=== PATIENT | male | born 1970 | race Asian ===

== ENCOUNTER 2019-03-29 23:19 | Inpatient (IN) | payer MEDICAID ==
[~2019-03-29] VITALS: Ht 172.7 cm; Wt 72.6 kg
[2019-03-29] MEDS ORDERED: Morphine Sulfate 4mg/ml Inj (IV USE ONLY) IVP ONE (23:30)
[2019-03-29] MEDS ORDERED: Isovue-370 150ml vial INJ PRN (23:30)
[2019-03-29] MEDS ORDERED: LORazepam Inj 2mg/ml 1ml IV ONE (23:30)
[2019-03-29 23:47] LABS: BASOPHILS % (AUTO) 1.9 % (0.0-2.0); EOSINOPHILS % (AUTO) 0.3 % (0.0-3.0); HEMATOCRIT 49.3 % (42.0-52.0); HEMOGLOBIN 16.9 G/DL (14.2-18.0); LYMPHOCYTES % (AUTO) 34.4 % (20.0-45.0); MEAN CORPUSCULAR VOLUME 92 FL (80-99); MONOCYTES % (AUTO) 7.1 % (1.0-10.0); NEUTROPHILS % (AUTO) 56.4 % (45.0-75.0); PLATELET COUNT 287 K/UL (150-450); RED BLOOD COUNT 5.36 M/UL (4.70-6.10); WHITE BLOOD COUNT 12.7 K/UL (4.8-10.8)
--- NOTE | 2019-03-29 23:50 | NUR ---
ED Nurse Note: Patient waked in to ER c/o severe substernal chest pain 07/05. Per patient's he ate spisy soup and started having severe chest pain. Patient presented diaphoretic, pale, tachypneic, with severe substernal pain. AAO x4, VSS at this point. ER MD at bed side, will continue to monitor.
[2019-03-29 23:55] VITALS: BP 136/72
[2019-03-29 23:59] LABS: ANION GAP 14 mmol/L (5-15); BLOOD UREA NITROGEN 16 mg/dL (7-18); CALCIUM 9.7 MG/DL (8.5-10.1); CARBON DIOXIDE 26 MMOL/L (21-32); CHLORIDE 105 MMOL/L (98-107); POTASSIUM 4.2 MMOL/L (3.5-5.1); SODIUM 144 MMOL/L (136-145)
[2019-03-30] LABS: INR 0.9 (0.9-1.1)
[2019-03-30 00:11] LABS: ALANINE AMINOTRANSFERASE 935 U/L (12-78); ALBUMIN 4.3 G/DL (3.4-5.0); ALBUMIN/GLOBULIN RATIO 1.2 (1.0-2.7); ALKALINE PHOSPHATASE 191 U/L (46-116); ASPARTATE AMINO TRANSFERASE 918 U/L (15-37); BILIRUBIN,TOTAL 2.1 MG/DL (0.2-1.0); CREATINE KINASE 97 U/L (26-308)
--- NOTE | 2019-03-30 00:18 | Emergency Room Report ---
History of Present Illness General Chief Complaint: Chest Pain Source: Patient Present Illness HPI Patient presents with severe epigastric and substernal chest pressure and pain. Burning and pressure. It started after eating spicy [place]ali soup. There is a history of diabetes. He has never had pain like this before. It is causing him to feel short of breath. He also has high cholesterol. He does not smoke and denies hypertension. He said no exertional symptoms prior to this. He denies fevers or chills. The pain is rated 10/10, burning and pressure in epigastric area radiating up into his chest. Is not pleuritic. He denies fevers or chills. There is been no cough or sore throat. He denies diarrhea or melena. There is no dysuria. He is extremely anxious due to the pain. Allergies: Coded Allergies: No Known Allergies (Unverified , 03/29/19) Patient History Past Medical History: see triage record Social History: Denies: smoking, alcohol use, drug use Social History Narrative Reviewed Nursing Documentation: PMH: Agreed; PSxH: Agreed Nursing Documentation-PMH Past Medical History: No History, Except For Hx Diabetes: Yes Review of Systems All Other Systems: negative except mentioned in HPI Physical Exam Vital Signs Date Time Temp Pulse Resp B/P (MAP) Pulse Ox O2 Delivery O2 Flow Rate FiO2 03/29/19 23:26 97.3 70 24 136/72 (93) 100 Room Air Sp02 EP Interpretation: reviewed, normal General Appearance: alert, moderate distress, other - Keeping eyes closed but opens them on command Head: normocephalic, atraumatic Eyes: bilateral eye normal inspection, bilateral eye PERRL, bilateral eye EOMI ENT: moist mucus membranes Neck: supple Respiratory: chest non-tender, lungs clear, normal breath sounds Cardiovascular #1: regular rate, rhythm Cardiovascular #2: 2+ radial (R) Gastrointestinal: normal inspection, normal bowel sounds, no mass, non- distended, no rebound, guarding - epigastric and RUQ, tenderness Genitourinary: no CVA tenderness Musculoskeletal: back normal, gait/station normal, normal range of motion Neurologic: alert, oriented x3, grossly normal Psychiatric: anxious Skin: other - Petechial rash face Medical Decision Making Diagnostic Impression: Primary Impression: Cholecystitis Additional Impressions: Chest pain Qualified Codes: R07.9 - Chest pain, unspecified Petechial rash Cholelithiasis Qualified Codes: K80.00 - Calculus of gallbladder with acute cholecystitis without obstruction Elevated transaminase level ER Course The patient presents with severe substernal chest pain and anxiety and dyspnea. Differential includes acute myocardial infarction acute coronary syndrome, gastritis, esophageal spasm, pancreatitis, pulmonary embolus amongst others. Evaluation will be with EKG, chest x-ray, CT angiogram and labs. The patient will be treated with Ativan, morphine and Zofran with Pepcid initially. Initial EKG normal sinus rhythm rate of 67 with a normal EKG. Lab called at 12:10AM with a positive troponin. Aspirin is ordered. Repeat EKG. Improved after initial treatment. Pain now 6/10. Repeat EKG normal. Hold on CTA. Petechial rash face. Repeat morphine. Repeat troponin. Ordered ultrasound as elevated LFTs and bili. Second troponin = 0.000 which is physiologically impossible. Calling lab to check. Third troponin 0.001 Will draw a 4th troponin peripherally. Normal troponin. Petechial rash face noted. Normal platelets. Lab now reports initial troponin negative - machine error. Downgrade to medical floor. Contact Dr. Salomon for consultation. Admit Dr. Duenas. Laboratory Tests Test 03/29/19 23:30 03/30/19 00:54 03/30/19 01:10 03/30/19 02:10 White Blood Count 12.7 K/UL (4.8-10.8) H Red Blood Count 5.36 M/UL (4.70-6.10) Hemoglobin 16.9 G/DL (14.2-18.0) Hematocrit 49.3 % (42.0-52.0) Mean Corpuscular Volume 92 FL (80-99) Mean Corpuscular Hemoglobin 31.6 PG (27.0-31.0) H Mean Corpuscular Hemoglobin Concent 34.4 G/DL (32.0-36.0) Red Cell Distribution Width 12.0 % (11.6-14.8) Platelet Count 287 K/UL (150-450) Mean Platelet Volume 5.8 FL (6.5-10.1) L Neutrophils (%) (Auto) 56.4 % (45.0-75.0) Lymphocytes (%) (Auto) 34.4 % (20.0-45.0) Monocytes (%) (Auto) 7.1 % (1.0-10.0) Eosinophils (%) (Auto) 0.3 % (0.0-3.0) Basophils (%) (Auto) 1.9 % (0.0-2.0) Prothrombin Time 10.0 SEC (9.30-11.50) Prothrombin Time INR 0.9 (0.9-1.1) PTT 19 SEC (23-33) L Sodium Level 144 MMOL/L (136-145) Potassium Level 4.2 MMOL/L (3.5-5.1) Chloride Level 105 MMOL/L (98-107) Carbon Dioxide Level 26 MMOL/L (21-32) Anion Gap 14 mmol/L (5-15) Blood Urea Nitrogen 16 mg/dL (7-18) Creatinine 1.0 MG/DL (0.55-1.30) Estimate Glomerular Filtration Rate > 60 mL/min (>60) Glucose Level 213 MG/DL (74-106) H Calcium Level 9.7 MG/DL (8.5-10.1) Total Bilirubin 2.1 MG/DL (0.2-1.0) H Direct Bilirubin 0.9 MG/DL (0.0-0.3) H Aspartate Amino Transferase (AST) 918 U/L (15-37) H Alanine Aminotransferase (ALT) 935 U/L (12-78) H Alkaline Phosphatase 191 U/L (46-116) H Total Creatine Kinase 97 U/L (26-308) Troponin I 0.138 ng/mL (0.000-0.056) 0.000 ng/mL (0.000-0.056) 0.001 ng/mL (0.000-0.056) Pro-B-Type Natriuretic Peptide 16 pg/mL (0-125) Total Protein 7.8 G/DL (6.4-8.2) Albumin 4.3 G/DL (3.4-5.0) Globulin 3.5 g/dL Albumin/Globulin Ratio 1.2 (1.0-2.7) Urine Color Yellow Urine Appearance Clear Urine pH 7 (4.5-8.0) Urine Specific [place] 1.005 (1.005-1.035) Urine Protein Negative (NEGATIVE) Urine Glucose (UA) 2+ (NEGATIVE) H Urine Ketones Negative (NEGATIVE) Urine Blood Negative (NEGATIVE) Urine Nitrite Negative (NEGATIVE) Urine Bilirubin Negative (NEGATIVE) Urine Urobilinogen Normal MG/DL (0.0-1.0) Urine Leukocyte Esterase Negative (NEGATIVE) Urine Opiates Screen Negative (NEGATIVE) Urine Barbiturates Screen Negative (NEGATIVE) Phencyclidine (PCP) Screen Negative (NEGATIVE) Urine Amphetamines Screen Negative (NEGATIVE) Urine Benzodiazepines Screen Negative (NEGATIVE) Urine Cocaine Screen Negative (NEGATIVE) Urine Marijuana (THC) Screen Negative (NEGATIVE) Test 03/30/19 04:20 Troponin I 0.000 ng/mL (0.000-0.056) EKG Diagnostic Results Rate: normal Rhythm: NSR ST Segments: no acute changes Rhythm Strip Diag. Results EP Interpretation: yes Rhythm: NSR, no PVC's, no ectopy Chest X-Ray Diagnostic Results Chest X-Ray Diagnostic Results : Chest X-Ray Ordered: Yes # of Views/Limited/Complete: 1 View Indication: Chest Pain EP Interpretation: Yes Interpretation: no consolidation, no effusion, no pneumothorax, other - poor inspiration Impression: Other Electronically Signed by: Electronically signed by Carson Lui MD CT/MRI/US Diagnostic Results CT/MRI/US Diagnostic Results : Imaging Test Ordered: Abdomen ultrasound Impression Gallstones present normal common bile duct no pericolic fluid Last Vital Signs Date Time Temp Pulse Resp B/P (MAP) Pulse Ox O2 Delivery O2 Flow Rate FiO2 03/30/19 08:00 97.8 76 17 137/81 (99) 95 03/30/19 06:04 Mechanical Ventilator Status: improved Disposition: ADMITTED INPATIENT Condition: Serious Referrals: [facility],REFERRING (PCP) Carson Lui MD Mar 30, 2019 00:18
--- NOTE | 2019-03-30 00:25 | NUR ---
ED Nurse Note: Patient's troponin level is 0.138, aspirin was given, ECG repeated, pt has normal sinus rythm.
[2019-03-30 00:26] LABS: BILIRUBIN,DIRECT 0.9 MG/DL (0.0-0.3)
[2019-03-30 01:05] LABS: APPEARANCE,URINE CLEAR; BILIRUBIN, URINE NEGATIVE (NEGATIVE); GLUCOSE, URINE (UA) 2+ (NEGATIVE); KETONES,URINE NEGATIVE (NEGATIVE); LEUKOCYTE ESTERASE ,URINE NEGATIVE (NEGATIVE); NITRITE,URINE NEGATIVE (NEGATIVE); PH,URINE 7 (4.5-8.0); UROBILINOGEN,URINE NORMAL MG/DL (0.0-1.0)
[2019-03-30 01:16] LABS: COLOR,URINE YELLOW
[2019-03-30 01:17] LABS: PROTEIN,URINE NEGATIVE (NEGATIVE)
[2019-03-30] MEDS ORDERED: Morphine Sulfate 4mg/ml Inj (IV USE ONLY) IVP ONE (01:30)
[2019-03-30] MEDS ORDERED: Piperacillin/Tazobactam 3.375 GM in NS 110 ML IVPB ONE (02:45)
--- NOTE | 2019-03-30 05:30 | NUR ---
ED Nurse Note: Patient was admited to [facility] due to gallstones. Patient's follow 3 Troponins were negative. Patient was transfered to the unit via gurney with all belongings.
--- NOTE | 2019-03-30 05:45 | NUR ---
NURSE NOTES: Report was taken from YULIYA Magaña RN.
--- NOTE | 2019-03-30 05:48 | NUR ---
NURSE NOTES: Patient brought to floor by JUNG Lawrence. Patient is fatigued and in bed, A&Ox4. No signs of distress on room air. Is complaining of pain in the RUQ of his abdomen, with breathing and light palpation, 7/10. Skin is c/d/i. Has 2 IV sites, both ports c/d/i and patent. Admission vital signs stable. Patient and went through a list of medications he takes at home. Will endorse to the doctor and day RN. Contacted MD for new orders, awaiting return call.
[2019-03-30 05:50] VITALS: BP 133/91
[2019-03-30] MEDS ORDERED: ATORVASTATIN CA40 MG ORAL (06:20)
[2019-03-30] MEDS ORDERED: METFORMIN HCL1000 M1 ORAL (06:20)
[2019-03-30] MEDS ORDERED: OMEPRAZOLE40 M1 ORAL (06:20)
--- NOTE | 2019-03-30 06:53 | NUR ---
CASE MANAGEMENT: INITIAL REVIEW 49 YO M MARYSOL FROM HOME CC: CP PMHx: DM. SI:CP. POSITIVE TROPONIN. T 97.3 HR 70 RR 24 B/P 136/72 SATS 100% ON RA WBC 12.7 GLU 213 TBILI 2.1 DBILI 0.9 AST 918 ALT 935 ALP 191 TROPONIN (-) X4 IS: MORPHINE IV X1 ATIVAN IV X1 ZOFRAN IV X1 NS BOLUS X2 PEPCID IV X1 ASA PO X1 PATIENT ADMITTED TO MED/SURG 03/30/2019 @ 0100 DCP: PATIENT TO BE DISCHARGED TO HOME ONCE MEDICALLY CLEARED. PLAN OF CARE: NPO CARDIO EVAL Addendum: 03/30/19 at 0700 by Cass Corona CM INTERQUAL MET
--- NOTE | 2019-03-30 07:15 | NUR ---
NURSE NOTES: Received report from GEORGES Smart. Rounding done with outgoing nurse. Pt a/o x4 in bed. c/o gastric pain 01/03. Questions answered. IV is patent. Bed in lowest position, call light within reach. Will continue to monitor.
[2019-03-30] MEDS ORDERED: D5NS 1,000 ML IV SCH (07:45)
[2019-03-30 08:00] VITALS: BP 137/81
--- NOTE | 2019-03-30 08:09 | NUR ---
HAND-OFF: Report given to GEORGES Barboza. Patient is asleep and VS stable..
[2019-03-30] MEDS: Meloxicam 15 MG TAB ORAL SCH (08:47)
[2019-03-30] MEDS: Morphine Sulfate 2mg/ml Inj(IV/IM USE ONLY) IVP PRN ×4 (08:48→23:46)
[2019-03-30] MEDS: Heparin 5000 units/ml inj SUBQ SCH ×3 (08:53→21:46)
--- NOTE | 2019-03-30 10:55 | NUR ---
NURSE NOTES: Pt refused heparin and stat pt will get knee surgery on next Tuesday. Dr. Duenas was notified. said ok to give heparin. Addendum: 03/30/19 at 1056 by Xena Godinez RN ADDENDUM Dr. Duenas also said pt may postpone surgery. Informed pt.
--- NOTE | 2019-03-30 11:00 | GI Initial Consult Note ---
History of Present Illness General Date patient seen: Mar 30, 2019 Time patient seen: 10:55 Reason for Hospitalization: Chest Pain Referring physician: KATELYN GARCIA Reason for Consultation: EPIGASTRIC PAIN Present Illness HPI Patient presents with severe epigastric and substernal chest pressure and pain. Burning and pressure. It started after eating spicy chorea and soup. Is a history of diabetes. He is never had pain like this before. Is causing to feel short of breath. He also has high cholesterol. He does not smoke and denies hypertension. He said no exertional symptoms prior to this. He denies fevers or chills. GI consulted for epigastric pain. Patient seen, awake alert oriented x4 no apparent distress has complaint of severe epigastric pain which he describes as sharp, stabbing. Mild tenderness to palpation. The patient stated his symptoms began after eating spicy Italian soup. Had 2 episodes of emesis, denied any hematemesis or coffee grounds. Denies any diarrhea. Labs reviewed; mild leukocytosis WBC 12, severe LFT elevation, negative urine toxicity. Abdominal ultrasound was performed in the emergency room, verbal reading of cholelithiasis. Pending final read. Hepatitis panel pending. Patient has no history of endoscopic or colonoscopy. Home Meds Reported Medications Omeprazole (OMEPRAZOLE) 40 Mg Capsule.dr, 40 MG ORAL DAILY, CAP 03/30/19 Atorvastatin Calcium* (ATORVASTATIN CALCIUM*) 40 Mg Tablet, 40 MG ORAL BEDTIME, TAB 03/30/19 Metformin Hcl* (METFORMIN HCL*) 1,000 Mg Tablet, 1000 MG ORAL DAILY, TAB 03/30/19 Med list reviewed/reconciled: Yes Allergies: Coded Allergies: No Known Allergies (Unverified , 03/29/19) Patient History History Provided By: Patient, Medical Record PMH Narrative Past Medical History: see triage record Social History: Denies: smoking, alcohol use, drug use Social History Narrative Reviewed Nursing Documentation: PMH: Agreed; PSxH: Agreed Nursing Documentation-PMH Past Medical History: No History, Except For Hx Diabetes: Yes Social History: Denies: smoking, alcohol use, drug use, other Review of Systems All Other Systems: negative except mentioned in HPI Physical Exam Vital Signs Date Time Temp Pulse Resp B/P (MAP) Pulse Ox O2 Delivery O2 Flow Rate FiO2 03/29/19 23:26 97.3 70 24 136/72 (93) 100 Room Air Sp02 EP Interpretation: reviewed, normal Labs Laboratory Tests Test 03/29/19 23:30 03/30/19 00:54 03/30/19 01:10 03/30/19 02:10 White Blood Count 12.7 K/UL (4.8-10.8) H Red Blood Count 5.36 M/UL (4.70-6.10) Hemoglobin 16.9 G/DL (14.2-18.0) Hematocrit 49.3 % (42.0-52.0) Mean Corpuscular Volume 92 FL (80-99) Mean Corpuscular Hemoglobin 31.6 PG (27.0-31.0) H Mean Corpuscular Hemoglobin Concent 34.4 G/DL (32.0-36.0) Red Cell Distribution Width 12.0 % (11.6-14.8) Platelet Count 287 K/UL (150-450) Mean Platelet Volume 5.8 FL (6.5-10.1) L Neutrophils (%) (Auto) 56.4 % (45.0-75.0) Lymphocytes (%) (Auto) 34.4 % (20.0-45.0) Monocytes (%) (Auto) 7.1 % (1.0-10.0) Eosinophils (%) (Auto) 0.3 % (0.0-3.0) Basophils (%) (Auto) 1.9 % (0.0-2.0) Prothrombin Time 10.0 SEC (9.30-11.50) Prothromb Time International Ratio 0.9 (0.9-1.1) Activated Partial Thromboplast Time 19 SEC (23-33) L Sodium Level 144 MMOL/L (136-145) Potassium Level 4.2 MMOL/L (3.5-5.1) Chloride Level 105 MMOL/L (98-107) Carbon Dioxide Level 26 MMOL/L (21-32) Anion Gap 14 mmol/L (5-15) Blood Urea Nitrogen 16 mg/dL (7-18) Creatinine 1.0 MG/DL (0.55-1.30) Estimat Glomerular Filtration Rate > 60 mL/min (>60) Glucose Level 213 MG/DL (74-106) H Calcium Level 9.7 MG/DL (8.5-10.1) Total Bilirubin 2.1 MG/DL (0.2-1.0) H Direct Bilirubin 0.9 MG/DL (0.0-0.3) H Aspartate Amino Transf (AST/SGOT) 918 U/L (15-37) H Alanine Aminotransferase (ALT/SGPT) 935 U/L (12-78) H Alkaline Phosphatase 191 U/L (46-116) H Total Creatine Kinase 97 U/L (26-308) Troponin I 0.000 ng/mL (0.000-0.056) 0.000 ng/mL (0.000-0.056) 0.001 ng/mL (0.000-0.056) Pro-B-Type Natriuretic Peptide 16 pg/mL (0-125) Total Protein 7.8 G/DL (6.4-8.2) Albumin 4.3 G/DL (3.4-5.0) Globulin 3.5 g/dL Albumin/Globulin Ratio 1.2 (1.0-2.7) Urine Color Yellow Urine Appearance Clear Urine pH 7 (4.5-8.0) Urine Specific [place] 1.005 (1.005-1.035) Urine Protein Negative (NEGATIVE) Urine Glucose (UA) 2+ (NEGATIVE) H Urine Ketones Negative (NEGATIVE) Urine Blood Negative (NEGATIVE) Urine Nitrite Negative (NEGATIVE) Urine Bilirubin Negative (NEGATIVE) Urine Urobilinogen Normal MG/DL (0.0-1.0) Urine Leukocyte Esterase Negative (NEGATIVE) Urine Opiates Screen Negative (NEGATIVE) Urine Barbiturates Screen Negative (NEGATIVE) Phencyclidine (PCP) Screen Negative (NEGATIVE) Urine Amphetamines Screen Negative (NEGATIVE) Urine Benzodiazepines Screen Negative (NEGATIVE) Urine Cocaine Screen Negative (NEGATIVE) Urine Marijuana (THC) Screen Negative (NEGATIVE) Test 03/30/19 04:20 03/30/19 08:58 Troponin I 0.000 ng/mL (0.000-0.056) Hepatitis A IgM Antibody Pending Hepatitis B Surface Antigen Pending Hepatitis B Core IgM Antibody Pending Hepatitis C Antibody Pending General Appearance: well appearing, no apparent distress, alert Head: normocephalic EENT: PERRL/EOMI, normal ENT inspection Neck: supple Respiratory: normal breath sounds, no respiratory distress Cardiovascular: normal rate Gastrointestinal: normal inspection, non tender, soft, normal bowel sounds, non -distended Rectal: deferred Genitourinary: deferred Musculoskeletal: normal inspection, back normal Neurologic: normal inspection, alert, oriented x3, responsive Psychiatric: normal inspection, judgement/insight normal, memory normal Skin: normal inspection, normal color, no rash, warm/dry, palpation normal, well hydrated Lymphatic: normal inspection, no adenopathy Current Medications Current Medications Medications (Trade) Dose Ordered Sig/Ben Route PRN Reason Start Time Stop Time Status Last Admin Dose Admin Dextrose (Dextrose 50%) 25 ml Q30M PRN IV Hypoglycemia 03/30/19 07:45 04/29/19 07:44 Dextrose (Dextrose 50%) 50 ml Q30M PRN IV Hypoglycemia 03/30/19 07:45 04/29/19 07:44 Dextrose/Sodium Chloride 1,000 ml @ 100 mls/hr Q10H IV 03/30/19 07:45 04/29/19 07:44 03/30/19 08:47 Heparin Sodium (Porcine) (Heparin 5000 units/ml) 5,000 units EVERY 12 HOURS SUBQ 03/30/19 09:00 04/29/19 08:59 Insulin Aspart (NovoLOG) BEFORE MEALS AND HS SUBQ 03/30/19 11:30 04/29/19 11:29 Iopamidol (Isovue-370 150ml) 150 ml NOW PRN INJ Radiology Procedure 03/29/19 23:30 03/31/19 23:28 Meloxicam (Mobic) 15 mg DAILY ORAL 03/30/19 09:00 04/29/19 08:59 03/30/19 08:47 Morphine Sulfate (Morphine Sulfate) 2 mg Q4H PRN IVP For Pain 03/30/19 07:45 04/06/19 07:44 03/30/19 08:48 Ondansetron HCl (Zofran) 4 mg Q6H PRN IVP Nausea & Vomiting 03/30/19 07:45 04/29/19 07:44 Pantoprazole (Protonix) 40 mg DAILY ORAL 03/30/19 09:00 04/29/19 08:59 03/30/19 08:47 GI: Plan Problems: (1) PUD (peptic ulcer disease) (2) Chest pain (3) Cholecystitis (4) Cholelithiasis Plan Follow-up cardiac recommendations given chest pain Patient may benefit from upper endoscopy to evaluate abdominal pain Follow-up abdominal ultrasound, will consider further procedures if necessary Follow-up hepatitis panel maintain NPO + IVFs PPI plus Carafate Zofran as needed Pain management Trend LFTs Discussed with Dr. Leahy. Thank you for this patient referral, we will follow. The patient was seen and examined at bedside and all new and available data was reviewed in the patients chart. I agree with the above findings, impression and plan. (Patient seen earlier today. Signature stamp does not reflect patient encounter time.). - MD [facility] Mar 30, 2019 11:00
[2019-03-30] MEDS ORDERED: NovoLOG Insulin Flexpen SUBQ SCH (11:30)
--- NOTE | 2019-03-30 11:49 | Diagnostic Imaging Report ---
Indication: Abdominal pain Technique: Grayscale and duplex Doppler imaging of the abdomen performed. Comparison: None Findings: The liver is echogenic.. Doppler interrogation of the main portal vein shows patency with hepatopedal, monophasic flow. There is no biliary ductal dilatation identified. The CBD measures less than 5 mm. The spleen is unremarkable. Gallstones demonstrated. Sonographic Nguyen's sign was negative per technologist. There demonstrated part of the pancreas, aorta and IVC show no definite abnormalities. Probable small stone in the left kidney. There is no hydronephrosis. IMPRESSION: Cholelithiasis. Fatty liver Probable nonobstructive stone left kidney. [facility] has communicated the preliminary results to the Emergency Department. Their findings are largely concordant with this report.
[2019-03-30 12:00] VITALS: BP 139/94
[2019-03-30] MEDS: D5 1/2NS 1,000 ML IV SCH (12:21)
--- NOTE | 2019-03-30 13:10 | NUR ---
NURSE NOTES: Dr. Duenas ordered 2D echo stat, MRCP stat, Flagyl 500mg IVPB TID, Cipro 500mg IVPB BID, mild sliding scale. Noted and carried out.
[2019-03-30] MEDS: Sucralfate 1gm tab ORAL SCH ×3 (13:25→21:40)
[2019-03-30] MEDS: NovoLOG Insulin Flexpen SUBQ SCH ×3 (13:28→21:45)
--- NOTE | 2019-03-30 13:40 | Infectious Diseases Prog Note ---
Assessment/Plan Problems: (1) Cholelithiasis Assessment & Plan: with possible cholecysttis , probably passed a stone , continue antibiotics coverage with ceftriaxone and metronidazole monitor clinically, trend liver enzymes (2) Elevated transaminase level Assessment & Plan: suspect due to the above , will screen for hepatitis, close monitor or liver function (3) Cholecystitis Assessment & Plan: possible due to the above with pain and elevated transaminase , will start ceftriaxone and metronidazole, recommend surgical eval (4) Chest pain Assessment & Plan: rule out ACS, cardiology consult Subjective Allergies: Coded Allergies: No Known Allergies (Unverified , 03/29/19) Objective Vital Signs Last 24 Hour Vital Signs Date Time Temp Pulse Resp B/P (MAP) Pulse Ox O2 Delivery O2 Flow Rate FiO2 03/30/19 08:00 97.8 76 17 137/81 (99) 95 03/30/19 06:04 Mechanical Ventilator 03/30/19 05:50 98.2 79 17 133/91 (105) 95 03/30/19 05:30 97.3 24 136/72 100 Room Air 03/30/19 02:01 97.3 03/30/19 00:16 97.3 03/29/19 23:55 97.3 24 136/72 100 Room Air 03/29/19 23:55 70 24 Room Air 03/29/19 23:26 97.3 70 24 136/72 (93) 100 Room Air Height (Feet): 5 Height (Inches): 8.00 Weight (Pounds): 160 Laboratory Tests Test 03/29/19 23:30 03/30/19 00:54 03/30/19 01:10 03/30/19 02:10 White Blood Count 12.7 K/UL (4.8-10.8) H Red Blood Count 5.36 M/UL (4.70-6.10) Hemoglobin 16.9 G/DL (14.2-18.0) Hematocrit 49.3 % (42.0-52.0) Mean Corpuscular Volume 92 FL (80-99) Mean Corpuscular Hemoglobin 31.6 PG (27.0-31.0) H Mean Corpuscular Hemoglobin Concent 34.4 G/DL (32.0-36.0) Red Cell Distribution Width 12.0 % (11.6-14.8) Platelet Count 287 K/UL (150-450) Mean Platelet Volume 5.8 FL (6.5-10.1) L Neutrophils (%) (Auto) 56.4 % (45.0-75.0) Lymphocytes (%) (Auto) 34.4 % (20.0-45.0) Monocytes (%) (Auto) 7.1 % (1.0-10.0) Eosinophils (%) (Auto) 0.3 % (0.0-3.0) Basophils (%) (Auto) 1.9 % (0.0-2.0) Prothrombin Time 10.0 SEC (9.30-11.50) Prothromb Time International Ratio 0.9 (0.9-1.1) Activated Partial Thromboplast Time 19 SEC (23-33) L Sodium Level 144 MMOL/L (136-145) Potassium Level 4.2 MMOL/L (3.5-5.1) Chloride Level 105 MMOL/L (98-107) Carbon Dioxide Level 26 MMOL/L (21-32) Anion Gap 14 mmol/L (5-15) Blood Urea Nitrogen 16 mg/dL (7-18) Creatinine 1.0 MG/DL (0.55-1.30) Estimat Glomerular Filtration Rate > 60 mL/min (>60) Glucose Level 213 MG/DL (74-106) H Calcium Level 9.7 MG/DL (8.5-10.1) Total Bilirubin 2.1 MG/DL (0.2-1.0) H Direct Bilirubin 0.9 MG/DL (0.0-0.3) H Aspartate Amino Transf (AST/SGOT) 918 U/L (15-37) H Alanine Aminotransferase (ALT/SGPT) 935 U/L (12-78) H Alkaline Phosphatase 191 U/L (46-116) H Total Creatine Kinase 97 U/L (26-308) Troponin I 0.000 ng/mL (0.000-0.056) 0.000 ng/mL (0.000-0.056) 0.001 ng/mL (0.000-0.056) Pro-B-Type Natriuretic Peptide 16 pg/mL (0-125) Total Protein 7.8 G/DL (6.4-8.2) Albumin 4.3 G/DL (3.4-5.0) Globulin 3.5 g/dL Albumin/Globulin Ratio 1.2 (1.0-2.7) Urine Color Yellow Urine Appearance Clear Urine pH 7 (4.5-8.0) Urine Specific [place] 1.005 (1.005-1.035) Urine Protein Negative (NEGATIVE) Urine Glucose (UA) 2+ (NEGATIVE) H Urine Ketones Negative (NEGATIVE) Urine Blood Negative (NEGATIVE) Urine Nitrite Negative (NEGATIVE) Urine Bilirubin Negative (NEGATIVE) Urine Urobilinogen Normal MG/DL (0.0-1.0) Urine Leukocyte Esterase Negative (NEGATIVE) Urine Opiates Screen Negative (NEGATIVE) Urine Barbiturates Screen Negative (NEGATIVE) Phencyclidine (PCP) Screen Negative (NEGATIVE) Urine Amphetamines Screen Negative (NEGATIVE) Urine Benzodiazepines Screen Negative (NEGATIVE) Urine Cocaine Screen Negative (NEGATIVE) Urine Marijuana (THC) Screen Negative (NEGATIVE) Test 03/30/19 04:20 03/30/19 08:58 Troponin I 0.000 ng/mL (0.000-0.056) Hepatitis A IgM Antibody Pending Hepatitis B Surface Antigen Pending Hepatitis B Core IgM Antibody Pending Hepatitis C Antibody Pending Current Medications Medications (Trade) Dose Ordered Sig/Ben Route PRN Reason Start Time Stop Time Status Last Admin Dose Admin Ciprofloxacin 200 ml @ 200 mls/hr Q12HR IV 03/30/19 14:00 04/06/19 13:59 Dextrose (Dextrose 50%) 25 ml Q30M PRN IV Hypoglycemia 03/30/19 13:15 04/29/19 13:14 Dextrose (Dextrose 50%) 25 ml Q30M PRN IV Hypoglycemia 03/30/19 13:30 04/29/19 13:29 Dextrose (Dextrose 50%) 50 ml Q30M PRN IV Hypoglycemia 03/30/19 13:15 04/29/19 13:14 Dextrose (Dextrose 50%) 50 ml Q30M PRN IV Hypoglycemia 03/30/19 13:30 04/29/19 13:29 Dextrose/Sodium Chloride 1,000 ml @ 75 mls/hr [id number] IV 03/30/19 11:00 04/29/19 10:59 03/30/19 12:21 Heparin Sodium (Porcine) (Heparin 5000 units/ml) 5,000 units EVERY 12 HOURS SUBQ 03/30/19 09:00 04/29/19 08:59 Insulin Aspart (NovoLOG) BEFORE MEALS AND HS SUBQ 03/30/19 13:15 04/29/19 13:14 03/30/19 13:28 Iopamidol (Isovue-370 150ml) 150 ml NOW PRN INJ Radiology Procedure 03/29/19 23:30 03/31/19 23:28 Meloxicam (Mobic) 15 mg DAILY ORAL 03/30/19 09:00 04/29/19 08:59 03/30/19 08:47 Metronidazole 100 ml @ 100 mls/hr Q8HR IVPB 03/30/19 14:00 04/06/19 13:59 Morphine Sulfate (Morphine Sulfate) 2 mg Q4H PRN IVP For Pain 03/30/19 07:45 04/06/19 07:44 03/30/19 13:26 Ondansetron HCl (Zofran) 4 mg Q6H PRN IVP Nausea & Vomiting 03/30/19 07:45 04/29/19 07:44 Pantoprazole (Protonix) 40 mg DAILY ORAL 03/30/19 09:00 04/29/19 08:59 03/30/19 08:47 Sucralfate (Carafate) 1 gm FOUR TIMES A DAY ORAL 03/30/19 13:00 04/29/19 12:59 03/30/19 13:25 Mita Bloom M.D. Mar 30, 2019 13:40
--- NOTE | 2019-03-30 13:54 | History & Physical ---
History and Physical History & Physicial seen and examined. Full Dictation is completed. Johnson Duenas MD Mar 30, 2019 13:54
[2019-03-30] MEDS: cefTRIAXone 2 GM in D5W 110 ML IVPB SCH (15:27)
--- NOTE | 2019-03-30 15:29 | Diagnostic Imaging Report ---
Indication: Abdominal pain Technique: MRI of the abdomen was performed in a 1.5 Krystal magnet. Pulse sequences obtained include coronal and axial T2 single shot fast spin echo breathhold and respiratory gated coronal T2 3-D M.R.C.P.; this data set was displayed in different projections or MIPs. In addition, multiple coronal oblique thin T2 weighted, fat saturated SE sequences obtained through the CBD. Comparison: None Findings: There is peripancreatic T2 hyperintensity which is ill-defined. Some fluid and abnormal signal extending into the paracolic gutter bilaterally along the anterior pararenal space. Findings are most in keeping with the acute pancreatitis. Please correlate with lipase. The biliary ducts appear normal in caliber. There is no evidence of choledocholithiasis. Tiny gallstones are present within the gallbladder. Small cyst noted within the left kidney. IMPRESSION: Suspicion of acute pancreatitis. Please correlate with lipase. No evidence of biliary ductal dilatation or choledocholithiasis. Cholelithiasis. Small left renal cyst
[2019-03-30 16:00] VITALS: BP 146/91
--- NOTE | 2019-03-30 16:00 | History and Physical Report ---
DATE OF ADMISSION: 03/30/2019 SOURCE OF INFORMATION: Patient and EMR. HISTORY OF PRESENT ILLNESS: The patient is a 49-year-old male with unremarkable past medical history, who presented with the acute onset of abdominal pain. The patient reported pain localized in the upper aspect of the abdomen with nausea, vomiting, and diarrhea. The patient denies any alleviating or aggravating factor for the pain. The patient denies any fever or chills. REVIEW OF SYSTEMS: All 14 elements of review of systems reviewed. Pertinent positive and negative as above. ALLERGIES: NKDA. SOCIAL HISTORY: The patient is , has three children. Denies history of illicit drug abuse, smoking, or alcohol abuse. MEDICATIONS: Current hospital medications including, but not limited to atorvastatin, metformin, omeprazole. PAST SURGICAL HISTORY: Left-sided knee surgery. FAMILY HISTORY: Reviewed and noncontributory. PHYSICAL EXAMINATION: VITAL SIGNS: Blood pressure of 130/70, temperature 97.2, pulse oximetry 98% on room air, pulse rate of the 82. HEAD AND NECK: Atraumatic and normocephalic. CHEST: Clear to auscultation. HEART: S1 and S2. Regular rate and rhythm. ABDOMEN: Guarding, Tender, limited evaluation. Negative for rebound tenderness. MUSCULOSKELETAL: No gross focal motor deficit. NEUROLOGY: Awake, alert, oriented x3. LABORATORY AND DIAGNOSTIC DATA: Labs dated March 29, 2019 shows WBC 12.7, hemoglobin of 16.9, platelet 287. Sodium 144, potassium 4.2, BUN 16, creatinine 1. AST 900, ALT 900. Troponin x3 negative. Abdominal ultrasound dated March 30, 2019 cholelithiasis. ASSESSMENT AND PLAN: 1. Acute cholecystitis. 2. Abnormal blood sugar. 3. Abnormal LFT. 4. GI and DVT prophylaxis. PLAN OF CARE: Case discussed with surgeon and GI. We will proceed with a 2D echo, 12-lead EKG, and chest x-ray for preop purposes. MRCP is ordered. Keep the patient NPO for now. Johnson Duenas M.D. DR: Camilo JOB#: [id number] CC: JUDIE
--- NOTE | 2019-03-30 17:00 | Consultation ---
DATE OF CONSULTATION: 03/30/2019 INFECTIOUS DISEASE CONSULTATION CONSULTING PHYSICIAN: Mita Bloom M.D. REQUESTING PHYSICIAN: Johnson Duenas M.D. REASON FOR CONSULTATION: Cholelithiasis, possible cholecystitis, recommendation for antibiotics treatment with elevated transaminase. HISTORY OF PRESENT ILLNESS: The patient is a 49-year-old male with past medical history of diabetes, presented to [facility] emergency room with severe epigastric and substernal chest pain. Described it as a burning and pressure-like pain, started after eating spicy [place] soup. The patient never had any abdominal or epigastric similar pain to this before. He was mildly short of breath because of the pain. The patient had an ultrasound of the abdomen, which showed cholelithiasis. His liver enzymes were elevated. So, he was admitted to the hospital for possible cholecystitis for antibiotics treatment and further management. An Infectious Disease consultation was requested for antibiotics therapy and further care. REVIEW OF SYSTEMS: A 14-point of system reviewed all were negative apart from the one I mentioned above in my History and Physical. PAST MEDICAL HISTORY: Significant for diabetes. PAST SURGICAL HISTORY: Negative. SOCIAL HISTORY: The patient lives with family at home. Denied using any drugs, tobacco, or alcohol. FAMILY HISTORY: Not contributory. ALLERGIES: No known drug allergies. MEDICATIONS: The patient was started on ciprofloxacin and metronidazole. For the rest of his medications, please refer to MAR. LABORATORY AND DIAGNOSTIC DATA: Labs showed white count of 12.7, hemoglobin of 16.9, and platelet count of 287. BUN of 16, creatinine of 1. AST of 918, ALT of 935, alkaline phosphatase of 191. Urinalysis was negative for an infection, but positive for glucose. Toxicology screening was negative. Hepatitis panel is pending. Imaging, ultrasound of the abdomen showed cholelithiasis, fatty liver, probable nonobstructive stone, left kidney. PHYSICAL EXAMINATION: VITAL SIGNS: Temperature 97.8, pulse 76, respirations 17, blood pressure 137/81, saturation 95% on room air. GENERAL: A middle-aged male, lying in bed, awake, alert, oriented x3, in no acute distress. HEENT: Normocephalic, atraumatic. Pupils are reactive to light equally. Moist oral mucosa. No exudate or thrush. NECK: Supple. No lymphadenopathy. CARDIOVASCULAR: Regular rate and rhythm. No murmur or gallop. LUNGS: Clear bilaterally. No wheezing or rhonchi. ABDOMEN: Soft, obese, tender in the right upper quadrant. Nondistended. Negative bowel sounds. No hepatosplenomegaly or ascites. EXTREMITIES: No edema or cyanosis. No clubbing. SKIN: No rash. No hives. ASSESSMENT AND RECOMMENDATION: 1. Cholelithiasis with possible cholecystitis, probably passed stone. We will continue antibiotics coverage with ceftriaxone and metronidazole empirically. Monitor liver enzymes, surgical evaluation, and GI evaluation. 2. Elevated transaminase suspect due to the above and passing stone. We will screen for hepatitis. Close monitor of liver function tests. GI consult. 3. Possible cholecystitis due to the above with pain and elevated transaminase. We will start ceftriaxone and metronidazole empirically. Pending surgical evaluation. Monitor liver function. 4. Chest pain, rule out acute coronary syndrome. Recommend Cardiology consult for further evaluation. Thank you for the consult. ID will continue to follow. Mita Bloom M.D. DR: VASQUEZ JOB#: [id number] CC: JUDIE
--- NOTE | 2019-03-30 19:00 | NUR ---
NURSE NOTES: Dr. Salomon ordered lipase stat. Noted and carried out.
--- NOTE | 2019-03-30 19:15 | NUR ---
HAND-OFF: Report given to GEORGES Smart.
--- NOTE | 2019-03-30 19:18 | NUR ---
NURSE NOTES: Report taken from GEORGES Barboza. Patient is fatigued but responsive in bed, A&Ox4. No signs of distress on room air. Continuous pain in the RUQ with rest and light palpation, 04/04. Imaging done prior shift. IV sites c/d/i and patent. Rt IV is running D51/2NS at 75/hr. Skin is intact no issues. Insulin scale changed to sensitive scale. VS stable, bed in lowest position, call light within reach.
[2019-03-30 20:00] VITALS: BP 135/91
[2019-03-30] MEDS ORDERED: Atorvastatin 80mg tab ORAL SCH (21:00)
--- NOTE | 2019-03-30 21:30 | Consultation ---
DATE OF CONSULTATION: 03/30/2019 CONSULTING PHYSICIAN: Ofe Salomon M.D. REQUESTING PHYSICIAN: Johnson Duenas M.D. REASON FOR CONSULTATION: Abdominal pain. HISTORY OF PRESENT ILLNESS: This is a 49-year-old [place] male, who presented to emergency room complaining of abdominal pain since yesterday. The pain was located at the epigastrium and retrosternal and apparently, he has vomited a couple of times, but he had a normal bowel movement. He denied any fever or cough. He denied history of jaundice . He denied a previous history of similar pain. He denies a history of a fatty intolerance. PAST MEDICAL HISTORY: He denies allergies, asthma, hypertension, cardiac and renal diseases. He has a history of diabetes. SURGERIES: Include operation on both knees. MEDICATIONS: Omeprazole, atorvastatin, and metformin. SOCIAL HISTORY: This is a 49-year-old [place] male, who is and father of three children. 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 Denied smoking and claimed that quit drinking 10 years ago. REVIEW OF SYSTEMS: Noncontributory. PHYSICAL EXAMINATION: GENERAL: The patient appeared to be a well-developed, well-nourished, mildly obese 49-year-old [place] male, lying on the bed, complaining of abdominal pain. HEENT: Head is normocephalic and atraumatic. Eyes, pupils are equal, round, and reactive to light. Mouth is clear. NECK: There is no palpable thyromegaly or adenopathy. CHEST: Clear to auscultation and percussion. HEART: There is no gallop or murmur. S1 and S2 are within normal limits. ABDOMEN: Soft and flat with tenderness at the upper abdomen mainly at the left upper epigastrium and even the right upper quadrant. Bowel sounds are present. He has a small umbilical hernia. GENITAL: Deferred. EXTREMITIES: Within normal limits. LABORATORY DATA: CBC has shown a WBC of 12,700 with normal differential. Chemistry has shown a blood glucose of 213. SGOT and SGPT are 900. Alkaline phosphatase of 191. Total bilirubin of 2.1 with a direct bilirubin of 0.9. Ultrasound had shown cholelithiasis and MRCP has been performed, which has been interpreted as rule out acute pancreatitis. ASSESSMENT: 1. Cholelithiasis. 2. Rule out pancreatitis. RECOMMENDATION: At this time, the picture is more like acute pancreatitis. I have requested the stat lipase and amylase and the treatment will be dictated accordingly. Ofe Salomon M.D. DR: CASIMIRO JOB#: [id number] CC:
[2019-03-31] VITALS: BP 137/89
[2019-03-31] MEDS: D5 1/2NS 1,000 ML IV SCH ×2 (00:30→15:40)
[2019-03-31] MEDS: Morphine Sulfate 2mg/ml Inj(IV/IM USE ONLY) IVP PRN ×3 (03:44→12:44)
[2019-03-31 04:00] VITALS: BP 135/90
[2019-03-31] MEDS: NovoLOG Insulin Flexpen SUBQ SCH ×4 (06:01→21:19)
--- NOTE | 2019-03-31 06:31 | General Progress Note ---
Assessment/Plan Problem List: (1) Pancreatitis ICD Codes: K85.90 - Acute pancreatitis without necrosis or infection, unspecified SNOMED: 77891918 (2) Chest pain ICD Codes: R07.9 - Chest pain, unspecified SNOMED: 60479975, 509418096, 133960046 Qualifiers: Qualified Codes: R07.9 - Chest pain, unspecified (3) Elevated transaminase level ICD Codes: R74.0 - Nonspecific elevation of levels of transaminase and lactic acid dehydrogenase [LDH] SNOMED: 212709392, 961208800 (4) PUD (peptic ulcer disease) ICD Codes: K27.9 - Peptic ulcer, site unspecified, unspecified as acute or chronic, without hemorrhage or perforation SNOMED: 95656310 (5) Cholelithiasis ICD Codes: K80.20 - Calculus of gallbladder without cholecystitis without obstruction SNOMED: 401655624 Qualifiers: Qualified Codes: K80.00 - Calculus of gallbladder with acute cholecystitis without obstruction Assessment/Plan: npo ivf MRCP neg>>will hold ERCP plans fu surg recs add ppi Subjective ROS Limited/Unobtainable: Yes Allergies: Coded Allergies: No Known Allergies (Unverified , 03/29/19) Objective Last 24 Hour Vital Signs Date Time Temp Pulse Resp B/P (MAP) Pulse Ox O2 Delivery O2 Flow Rate FiO2 03/31/19 04:00 97.9 85 16 135/90 (105) 97 03/31/19 00:00 98.7 88 18 137/89 (105) 96 03/30/19 21:00 Room Air 03/30/19 20:00 97.9 91 18 135/91 (106) 95 03/30/19 16:00 97.4 83 17 146/91 (109) 96 03/30/19 12:00 97.1 78 17 139/94 (109) 97 03/30/19 09:00 Room Air 03/30/19 08:00 97.8 76 17 137/81 (99) 95 Intake and Output 03/30/19 03/31/19 19:00 07:00 Intake Total 660 ml Balance 660 ml Intake IV Total 660 ml # Voids 2 Laboratory Tests 03/30/19 08:58: Hepatitis A IgM Antibody Negative, Hepatitis B Surface Antigen Negative, Hepatitis B Core IgM Antibody Negative, Hepatitis C Antibody <0.1 Height (Feet): 5 Height (Inches): 8.00 Weight (Pounds): 160 General Appearance: alert EENT: normal ENT inspection Neck: supple Cardiovascular: normal rate Respiratory/Chest: lungs clear Abdomen: soft, hypoactive bowel sounds, tender Extremities: non-tender Stanley Leahy MD Mar 31, 2019 06:31
--- NOTE | 2019-03-31 07:03 | NUR ---
HAND-OFF: Report given to GEORGES Barboza. Patient VS stable.
--- NOTE | 2019-03-31 07:19 | NUR ---
NURSE NOTES: Received report from GEORGES Elise. Patient is asleep. Will continue to monitor.
[2019-03-31 07:35] LABS: BASOPHILS % (AUTO) 0.4 % (0.0-2.0); HEMATOCRIT 45.3 % (42.0-52.0); HEMOGLOBIN 15.1 G/DL (14.2-18.0); LYMPHOCYTES % (AUTO) 11.6 % (20.0-45.0); MEAN CORPUSCULAR VOLUME 94 FL (80-99); MONOCYTES % (AUTO) 4.8 % (1.0-10.0); NEUTROPHILS % (AUTO) 83.1 % (45.0-75.0); PLATELET COUNT 224 K/UL (150-450); RED CELL DISTRIBUTION WIDTH 11.1 % (11.6-14.8); WHITE BLOOD COUNT 14.1 K/UL (4.8-10.8)
[2019-03-31 08:00] VITALS: BP 147/74
[2019-03-31 08:10] LABS: ALANINE AMINOTRANSFERASE 803 U/L (12-78); ALBUMIN 3.9 G/DL (3.4-5.0); ALBUMIN/GLOBULIN RATIO 1.4 (1.0-2.7); ALKALINE PHOSPHATASE 199 U/L (46-116); AMYLASE 447 U/L (25-115); ANION GAP 10 mmol/L (5-15); ASPARTATE AMINO TRANSFERASE 290 U/L (15-37); BLOOD UREA NITROGEN 12 mg/dL (7-18); CALCIUM 8.4 MG/DL (8.5-10.1); CARBON DIOXIDE 27 MMOL/L (21-32); CHLORIDE 102 MMOL/L (98-107); CREATININE 0.8 MG/DL (0.55-1.30); POTASSIUM 3.1 MMOL/L (3.5-5.1); SODIUM 139 MMOL/L (136-145)
[2019-03-31 08:11] LABS: BILIRUBIN,DIRECT 0.9 MG/DL (0.0-0.3)
[2019-03-31] MEDS: Meloxicam 15 MG TAB ORAL SCH (08:56)
[2019-03-31] MEDS: Sucralfate 1gm tab ORAL SCH ×4 (08:56→21:14)
[2019-03-31] MEDS: Heparin 5000 units/ml inj SUBQ SCH ×2 (08:57→21:18)
[2019-03-31] MEDS ORDERED: metFORMIN 500mg tab ORAL SCH (09:00)
--- NOTE | 2019-03-31 11:36 | NUR ---
NURSE NOTES: Potassium 3.1. Dr. Duenas was notified and ordered kcl 40meq po one time. Noted and carried out. Addendum: 03/31/19 at 1152 by Xena Godinez RN ADDENDUM Pt stat Morphine is not working. Dr. Duenas was notifed MD said no change.
[2019-03-31 12:00] VITALS: BP 137/91
--- NOTE | 2019-03-31 12:53 | NUR ---
NURSE NOTES: Dr. Salomon ordered Dilaudid 1 mg q4 IV for severe pain. Noted and carried out.
--- NOTE | 2019-03-31 13:09 | General Surgery Progress Note ---
General Surgery-Progress Note Subjective Symptoms: pain same Objective Last 24 Hour Vital Signs Date Time Temp Pulse Resp B/P (MAP) Pulse Ox O2 Delivery O2 Flow Rate FiO2 03/31/19 12:00 99.3 90 20 137/91 (106) 95 03/31/19 09:00 Room Air 03/31/19 08:00 98.7 87 20 147/74 (98) 99 03/31/19 04:00 97.9 85 16 135/90 (105) 97 03/31/19 00:00 98.7 88 18 137/89 (105) 96 03/30/19 21:00 Room Air 03/30/19 20:00 97.9 91 18 135/91 (106) 95 03/30/19 16:00 97.4 83 17 146/91 (109) 96 I&O Intake and Output 03/30/19 03/31/19 18:59 06:59 Intake Total 660 ml 50 ml Balance 660 ml 50 ml Intake Oral 50 ml IV Total 660 ml # Voids 2 2 Respiratory: clear Abdomen: soft, flat, tenderness, present bowel sounds Extremities: no tenderness Laboratory Tests Test 03/31/19 05:48 White Blood Count 14.1 K/UL (4.8-10.8) H Red Blood Count 4.80 M/UL (4.70-6.10) Hemoglobin 15.1 G/DL (14.2-18.0) Hematocrit 45.3 % (42.0-52.0) Mean Corpuscular Volume 94 FL (80-99) Mean Corpuscular Hemoglobin 31.4 PG (27.0-31.0) H Mean Corpuscular Hemoglobin Concent 33.3 G/DL (32.0-36.0) Red Cell Distribution Width 11.1 % (11.6-14.8) L Platelet Count 224 K/UL (150-450) Mean Platelet Volume 5.5 FL (6.5-10.1) L Neutrophils (%) (Auto) 83.1 % (45.0-75.0) H Lymphocytes (%) (Auto) 11.6 % (20.0-45.0) L Monocytes (%) (Auto) 4.8 % (1.0-10.0) Eosinophils (%) (Auto) 0.0 % (0.0-3.0) Basophils (%) (Auto) 0.4 % (0.0-2.0) Sodium Level 139 MMOL/L (136-145) Potassium Level 3.1 MMOL/L (3.5-5.1) L Chloride Level 102 MMOL/L (98-107) Carbon Dioxide Level 27 MMOL/L (21-32) Anion Gap 10 mmol/L (5-15) Blood Urea Nitrogen 12 mg/dL (7-18) Creatinine 0.8 MG/DL (0.55-1.30) Estimat Glomerular Filtration Rate > 60 mL/min (>60) Glucose Level 165 MG/DL (74-106) H Calcium Level 8.4 MG/DL (8.5-10.1) L Total Bilirubin 2.0 MG/DL (0.2-1.0) H Direct Bilirubin 0.9 MG/DL (0.0-0.3) H Aspartate Amino Transf (AST/SGOT) 290 U/L (15-37) H Alanine Aminotransferase (ALT/SGPT) 803 U/L (12-78) H Alkaline Phosphatase 199 U/L (46-116) H Total Protein 6.7 G/DL (6.4-8.2) Albumin 3.9 G/DL (3.4-5.0) Globulin 2.8 g/dL Albumin/Globulin Ratio 1.4 (1.0-2.7) Amylase Level 447 U/L (25-115) H Lipase > 2000 U/L (73-393) H Assessment Additional Comments Gallstone Pancreatitis Plan Additional Comments continue as before Ofe Salomon MD Mar 31, 2019 13:09
[2019-03-31] MEDS: cefTRIAXone 2 GM in D5W 110 ML IVPB SCH (15:40)
[2019-03-31 16:00] VITALS: BP 141/93
[2019-03-31] MEDS: HYDROmorphone 1mg/ml Carpuject IVP PRN ×2 (17:08→21:22)
--- NOTE | 2019-03-31 18:22 | NUR ---
CASE MANAGEMENT: REVIEW SI: CHEST PAIN . PANCREATITIS T 99.3 HR 90 RR 20 BP 147/74 SAT 94% ROOM AIR WBC 14.1 AST 290 ALT 803 ALK PHOS 199 LIPASE >2000 IS: CEFTRIAXONE IV Q24HR FLAGYL IV Q8HR D5 1/2 NS IVF @75ML/HR MOBIC PO QD MORPHINE 2MG IV Q4HR PRN NPO MED/SURG STATUS DCP: PATIENT IS FROM HOME
--- NOTE | 2019-03-31 19:09 | NUR ---
HAND-OFF: Report given to GEORGES Denny. Patient is sleeping.
--- NOTE | 2019-03-31 19:10 | NUR ---
NURSE NOTES: Received shift report from Xena Barboza RN.
--- NOTE | 2019-03-31 19:11 | General Progress Note ---
Assessment/Plan Assessment/Plan: S: My stomach hurts O: seems in mild distress because of pain PHYSICAL EXAMINATION: HEAD AND NECK: Atraumatic and normocephalic. CHEST: Clear to auscultation. HEART: S1 and S2. Regular rate and rhythm. ABDOMEN: Guarding, Tender, limited evaluation. Negative for rebound tenderness. MUSCULOSKELETAL: No gross focal motor deficit. NEUROLOGY: Awake, alert, oriented x3. LABORATORY AND DIAGNOSTIC DATA: Labs dated March 29, 2019 reviewed Abdominal MRI and Echo, both, dated March reviewed. ASSESSMENT AND PLAN: 1. Acute cholecystitis. 2. Abnormal blood sugar. 3. Abnormal LFT. 4. GI and DVT prophylaxis. Plan: Patient is medically stable for planned surgery. No medical contra-indication, with less than 1% esteban-op cardiovascular risk Subjective Allergies: Coded Allergies: No Known Allergies (Unverified , 03/29/19) Objective Last 24 Hour Vital Signs Date Time Temp Pulse Resp B/P (MAP) Pulse Ox O2 Delivery O2 Flow Rate FiO2 03/31/19 16:00 98.3 95 20 141/93 (109) 94 03/31/19 12:00 99.3 90 20 137/91 (106) 95 03/31/19 09:00 Room Air 03/31/19 08:00 98.7 87 20 147/74 (98) 99 03/31/19 04:00 97.9 85 16 135/90 (105) 97 03/31/19 00:00 98.7 88 18 137/89 (105) 96 03/30/19 21:00 Room Air 03/30/19 20:00 97.9 91 18 135/91 (106) 95 Intake and Output 03/30/19 03/31/19 19:00 07:00 Intake Total 660 ml 50 ml Balance 660 ml 50 ml Intake Oral 50 ml IV Total 660 ml # Voids 2 2 Laboratory Tests 03/31/19 05:48: White Blood Count 14.1H, Red Blood Count 4.80, Hemoglobin 15.1, Hematocrit 45.3 , Mean Corpuscular Volume 94, Mean Corpuscular Hemoglobin 31.4H, Mean Corpuscular Hemoglobin Concent 33.3, Red Cell Distribution Width 11.1L, Platelet Count 224, Mean Platelet Volume 5.5L, Neutrophils (%) (Auto) 83.1H, Lymphocytes (%) (Auto) 11.6L, Monocytes (%) (Auto) 4.8, Eosinophils (%) (Auto) 0.0, Basophils (%) (Auto) 0.4, Sodium Level 139, Potassium Level 3.1L, Chloride Level 102, Carbon Dioxide Level 27, Anion Gap 10, Blood Urea Nitrogen 12, Creatinine 0.8, Estimat Glomerular Filtration Rate > 60, Glucose Level 165H, Calcium Level 8.4L, Total Bilirubin 2.0H, Direct Bilirubin 0.9H, Aspartate Amino Transf (AST/SGOT) 290H, Alanine Aminotransferase (ALT/SGPT) 803H, Alkaline Phosphatase 199H, Total Protein 6.7, Albumin 3.9, Globulin 2.8, Albumin /Globulin Ratio 1.4, Amylase Level 447H, Lipase > 2000H Height (Feet): 5 Height (Inches): 8.00 Weight (Pounds): 160 Johnson Duenas MD Mar 31, 2019 19:11
--- NOTE | 2019-03-31 19:15 | NUR ---
NURSE NOTES: Seen pt now for my initial rounding. pt is sleeping at this time but easily arousable. resp even, no apparent distress noted. IVF infusing well to RAC intact, patent. call light w/in reach.
--- NOTE | 2019-03-31 19:32 | Infectious Diseases Prog Note ---
Assessment/Plan Problems: (1) Cholelithiasis Assessment & Plan: with possible cholecysttis , probably passed a stone , continue antibiotics coverage with ceftriaxone and metronidazole monitor clinically, trend liver enzymes (2) Elevated transaminase level Assessment & Plan: suspect due to the above , will screen for hepatitis, close monitor or liver function (3) Cholecystitis Assessment & Plan: possible due to the above with pain and elevated transaminase , continue ceftriaxone and metronidazole, for surgical resection soon . surgery is following (4) Chest pain Assessment & Plan: rule out ACS, cardiology consult Subjective Gastrointestinal/Abdominal: Reports: bloating, other - abdominal pain Allergies: Coded Allergies: No Known Allergies (Unverified , 03/29/19) Objective Vital Signs Last 24 Hour Vital Signs Date Time Temp Pulse Resp B/P (MAP) Pulse Ox O2 Delivery O2 Flow Rate FiO2 03/31/19 16:00 98.3 95 20 141/93 (109) 94 03/31/19 12:00 99.3 90 20 137/91 (106) 95 03/31/19 09:00 Room Air 03/31/19 08:00 98.7 87 20 147/74 (98) 99 03/31/19 04:00 97.9 85 16 135/90 (105) 97 03/31/19 00:00 98.7 88 18 137/89 (105) 96 03/30/19 21:00 Room Air 03/30/19 20:00 97.9 91 18 135/91 (106) 95 Height (Feet): 5 Height (Inches): 8.00 Weight (Pounds): 160 General Appearance: WD/WN, no acute distress HEENT: normocephalic, atraumatic, anicteric, mucous membranes moist, PERRL Respiratory/Chest: chest wall non-tender, lungs clear, normal breath sounds, no respiratory distress, no accessory muscle use Cardiovascular: normal peripheral pulses, normal rate, regular rhythm, no gallop/murmur, no JVD Abdomen: normal bowel sounds, no mass, no scars, hypoactive bowel sounds, distended, tender Extremities: no cyanosis, no clubbing Skin: no rash, no lesions, no ulcers Neurologic/Psychiatric: 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 president 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 II-XII grossly normal, alert, responsive Lymphatic: no neck adenopathy, no groin adenopathy Musculoskeletal: normal muscle bulk, no effusion Laboratory Tests Test 03/31/19 05:48 White Blood Count 14.1 K/UL (4.8-10.8) H Red Blood Count 4.80 M/UL (4.70-6.10) Hemoglobin 15.1 G/DL (14.2-18.0) Hematocrit 45.3 % (42.0-52.0) Mean Corpuscular Volume 94 FL (80-99) Mean Corpuscular Hemoglobin 31.4 PG (27.0-31.0) H Mean Corpuscular Hemoglobin Concent 33.3 G/DL (32.0-36.0) Red Cell Distribution Width 11.1 % (11.6-14.8) L Platelet Count 224 K/UL (150-450) Mean Platelet Volume 5.5 FL (6.5-10.1) L Neutrophils (%) (Auto) 83.1 % (45.0-75.0) H Lymphocytes (%) (Auto) 11.6 % (20.0-45.0) L Monocytes (%) (Auto) 4.8 % (1.0-10.0) Eosinophils (%) (Auto) 0.0 % (0.0-3.0) Basophils (%) (Auto) 0.4 % (0.0-2.0) Sodium Level 139 MMOL/L (136-145) Potassium Level 3.1 MMOL/L (3.5-5.1) L Chloride Level 102 MMOL/L (98-107) Carbon Dioxide Level 27 MMOL/L (21-32) Anion Gap 10 mmol/L (5-15) Blood Urea Nitrogen 12 mg/dL (7-18) Creatinine 0.8 MG/DL (0.55-1.30) Estimat Glomerular Filtration Rate > 60 mL/min (>60) Glucose Level 165 MG/DL (74-106) H Calcium Level 8.4 MG/DL (8.5-10.1) L Total Bilirubin 2.0 MG/DL (0.2-1.0) H Direct Bilirubin 0.9 MG/DL (0.0-0.3) H Aspartate Amino Transf (AST/SGOT) 290 U/L (15-37) H Alanine Aminotransferase (ALT/SGPT) 803 U/L (12-78) H Alkaline Phosphatase 199 U/L (46-116) H Total Protein 6.7 G/DL (6.4-8.2) Albumin 3.9 G/DL (3.4-5.0) Globulin 2.8 g/dL Albumin/Globulin Ratio 1.4 (1.0-2.7) Amylase Level 447 U/L (25-115) H Lipase > 2000 U/L (73-393) H Current Medications Medications (Trade) Dose Ordered Sig/Ben Route PRN Reason Start Time Stop Time Status Last Admin Dose Admin Ceftriaxone Sodium 2 gm/ Dextrose 110 ml @ 220 mls/hr Q24H IVPB 03/30/19 15:00 04/06/19 14:59 03/31/19 15:40 Dextrose (Dextrose 50%) 25 ml Q30M PRN IV Hypoglycemia 03/30/19 13:15 04/29/19 13:14 Dextrose (Dextrose 50%) 25 ml Q30M PRN IV Hypoglycemia 03/30/19 13:30 04/29/19 13:29 Dextrose (Dextrose 50%) 50 ml Q30M PRN IV Hypoglycemia 03/30/19 13:15 04/29/19 13:14 Dextrose (Dextrose 50%) 50 ml Q30M PRN IV Hypoglycemia 03/30/19 13:30 04/29/19 13:29 Dextrose/Sodium Chloride 1,000 ml @ 75 mls/hr [id number] IV 03/30/19 11:00 04/29/19 10:59 03/31/19 15:40 Heparin Sodium (Porcine) (Heparin 5000 units/ml) 5,000 units EVERY 12 HOURS SUBQ 03/30/19 09:00 04/29/19 08:59 03/31/19 08:57 Hydromorphone HCl (Dilaudid) 1 mg Q4H PRN IVP Severe Pain (Pain Scale 7-10) 03/31/19 13:00 04/07/19 12:59 03/31/19 17:08 Insulin Aspart (NovoLOG) BEFORE MEALS AND HS SUBQ 03/30/19 13:15 04/29/19 13:14 03/31/19 17:10 Iopamidol (Isovue-370 150ml) 150 ml NOW PRN INJ Radiology Procedure 03/29/19 23:30 03/31/19 23:28 Meloxicam (Mobic) 15 mg DAILY ORAL 03/30/19 09:00 04/29/19 08:59 03/31/19 08:56 Metronidazole 100 ml @ 100 mls/hr Q8HR IVPB 03/30/19 14:00 04/06/19 13:59 03/31/19 14:26 Morphine Sulfate (Morphine Sulfate) 2 mg Q4H PRN IVP For Pain 03/30/19 07:45 04/06/19 07:44 03/31/19 12:44 Ondansetron HCl (Zofran) 4 mg Q6H PRN IVP Nausea & Vomiting 03/30/19 07:45 04/29/19 07:44 Pantoprazole (Protonix) 40 mg DAILY ORAL 03/30/19 09:00 04/29/19 08:59 03/31/19 08:56 Sucralfate (Carafate) 1 gm FOUR TIMES A DAY ORAL 03/30/19 13:00 04/29/19 12:59 03/31/19 17:08 Mita Bloom M.D. Mar 31, 2019 19:32
[2019-03-31 20:00] VITALS: BP 134/89
[2019-04-01] VITALS (13 sets, daily range): BP systolic 104–142; BP diastolic 68–93
[2019-04-01] MEDS: HYDROmorphone 1mg/ml Carpuject IVP PRN ×4 (01:26→20:44)
[2019-04-01] MEDS: D5 1/2NS 1,000 ML IV SCH ×2 (03:11→16:20)
[2019-04-01] MEDS: NovoLOG Insulin Flexpen SUBQ SCH ×4 (06:33→20:47)
--- NOTE | 2019-04-01 07:05 | NUR ---
HAND-OFF: Report given to GEORGES Alejandro.
--- NOTE | 2019-04-01 07:24 | NUR ---
NURSE NOTES:BEDSIDE ROUNDS DONE WITH OUTGOING RN(MATTHEW),PATIENT ASLEEP AROUSABLE,ROOM AIR,A/O X4,NO C/O PAIN.IV SITE INTACT.WILL CONTINUE PLAN OF CARE.
[2019-04-01 08:15] LABS: BASOPHILS % (AUTO) 0.3 % (0.0-2.0); HEMATOCRIT 42.9 % (42.0-52.0); HEMOGLOBIN 14.3 G/DL (14.2-18.0); LYMPHOCYTES % (AUTO) 10.7 % (20.0-45.0); MEAN CORPUSCULAR VOLUME 94 FL (80-99); MONOCYTES % (AUTO) 6.9 % (1.0-10.0); NEUTROPHILS % (AUTO) 82.1 % (45.0-75.0); PLATELET COUNT 210 K/UL (150-450); RED BLOOD COUNT 4.55 M/UL (4.70-6.10); RED CELL DISTRIBUTION WIDTH 10.9 % (11.6-14.8); WHITE BLOOD COUNT 17.1 K/UL (4.8-10.8)
[2019-04-01] MEDS: Meloxicam 15 MG TAB ORAL SCH (08:28)
[2019-04-01] MEDS: Sucralfate 1gm tab ORAL SCH ×4 (08:28→20:30)
[2019-04-01] MEDS: Morphine Sulfate 2mg/ml Inj(IV/IM USE ONLY) IVP PRN (08:29)
[2019-04-01] MEDS: Heparin 5000 units/ml inj SUBQ SCH ×2 (08:30→20:49)
[2019-04-01 09:15] LABS: ALANINE AMINOTRANSFERASE 415 U/L (12-78); ALBUMIN 3.3 G/DL (3.4-5.0); ALKALINE PHOSPHATASE 161 U/L (46-116); AMYLASE 134 U/L (25-115); ANION GAP 14 mmol/L (5-15); ASPARTATE AMINO TRANSFERASE 73 U/L (15-37); BILIRUBIN,TOTAL 1.5 MG/DL (0.2-1.0); BLOOD UREA NITROGEN 10 mg/dL (7-18); CALCIUM 8.3 MG/DL (8.5-10.1); CARBON DIOXIDE 22 MMOL/L (21-32); CHLORIDE 102 MMOL/L (98-107); CREATININE 0.8 MG/DL (0.55-1.30); POTASSIUM 3.2 MMOL/L (3.5-5.1); SODIUM 138 MMOL/L (136-145)
[2019-04-01 09:16] LABS: BILIRUBIN,DIRECT 0.5 MG/DL (0.0-0.3)
--- NOTE | 2019-04-01 10:30 | NUR ---
NURSE NOTES:PT. IN A LOT OF PAIN,CLAIMS PAIN MEDS ARE NOT WORKING AND STATE"IF THEY ARE NOT GOING TO DO SURGERY,I WILL GO TO [facility] BECAUSE PAIN IS GETTING WORSE"DR. GARCIA MADE AWARE WELL OF K.RESULTS. STATED "ITS UP TO THE SURGEON".DR. HAGEN WAS CALLED AND MESSAGE RELAYED TO HIM RE:PTS CONCERN AND PAIN MEDS,LAB RESULTS.STATED HES COMING TO SEE PT IN AN HOUR.PT.INFORMED.CHARGE NURSE AWARE.
--- NOTE | 2019-04-01 10:30 | General Progress Note ---
Assessment/Plan Problem List: (1) Pancreatitis ICD Codes: K85.90 - Acute pancreatitis without necrosis or infection, unspecified SNOMED: 90492437 (2) Chest pain ICD Codes: R07.9 - Chest pain, unspecified SNOMED: 22069906, 424268206, 761745703 Qualifiers: Qualified Codes: R07.9 - Chest pain, unspecified (3) Elevated transaminase level ICD Codes: R74.0 - Nonspecific elevation of levels of transaminase and lactic acid dehydrogenase [LDH] SNOMED: 384953541, 510513087 (4) PUD (peptic ulcer disease) ICD Codes: K27.9 - Peptic ulcer, site unspecified, unspecified as acute or chronic, without hemorrhage or perforation SNOMED: 01779715 (5) Cholelithiasis ICD Codes: K80.20 - Calculus of gallbladder without cholecystitis without obstruction SNOMED: 914128805 Qualifiers: Qualified Codes: K80.00 - Calculus of gallbladder with acute cholecystitis without obstruction Assessment/Plan: npo ivf MRCP neg>>will hold ERCP plans fu surg recs ppi Subjective ROS Limited/Unobtainable: Yes Allergies: Coded Allergies: No Known Allergies (Unverified , 03/29/19) Objective Last 24 Hour Vital Signs Date Time Temp Pulse Resp B/P (MAP) Pulse Ox O2 Delivery O2 Flow Rate FiO2 04/01/19 08:39 98.0 100 20 129/85 (100) 96 04/01/19 07:24 Room Air 04/01/19 04:00 99.6 108 18 124/93 (103) 95 04/01/19 00:00 97.6 104 18 142/92 (109) 94 03/31/19 21:00 Room Air 03/31/19 20:00 99.6 94 16 134/89 (104) 96 03/31/19 16:00 98.3 95 20 141/93 (109) 94 03/31/19 12:00 99.3 90 20 137/91 (106) 95 Intake and Output 03/31/19 04/01/19 19:00 07:00 Intake Total 435 ml 900 ml Balance 435 ml 900 ml IV Total 435 ml 900 ml # Voids 2 2 Laboratory Tests 04/01/19 06:18: White Blood Count 17.1H, Red Blood Count 4.55L, Hemoglobin 14.3, Hematocrit 42.9 , Mean Corpuscular Volume 94, Mean Corpuscular Hemoglobin 31.6H, Mean Corpuscular Hemoglobin Concent 33.5, Red Cell Distribution Width 10.9L, Platelet Count 210, Mean Platelet Volume 6.5, Neutrophils (%) (Auto) 82.1H, Lymphocytes (%) (Auto) 10.7L, Monocytes (%) (Auto) 6.9, Eosinophils (%) (Auto) 0.0, Basophils (%) (Auto) 0.3, Sodium Level 138, Potassium Level 3.2L, Chloride Level 102, Carbon Dioxide Level 22, Anion Gap 14, Blood Urea Nitrogen 10, Creatinine 0.8, Estimat Glomerular Filtration Rate > 60, Glucose Level 170H, Calcium Level 8.3L, Total Bilirubin 1.5H, Direct Bilirubin 0.5H, Aspartate Amino Transf (AST/SGOT) 73H, Alanine Aminotransferase (ALT/SGPT) 415H, Alkaline Phosphatase 161H, Total Protein 6.7, Albumin 3.3L, Globulin 3.4, Albumin/ Globulin Ratio 1.0, Amylase Level 134H, Lipase 438H Height (Feet): 5 Height (Inches): 8.00 Weight (Pounds): 160 General Appearance: alert EENT: normal ENT inspection Neck: supple Cardiovascular: normal rate Respiratory/Chest: decreased breath sounds Abdomen: normal bowel sounds, non tender, soft Extremities: non-tender Stanley Leahy MD Apr 01, 2019 10:30
--- NOTE | 2019-04-01 12:07 | General Surgery Progress Note ---
General Surgery-Progress Note Subjective Symptoms: pain same Objective Last 24 Hour Vital Signs Date Time Temp Pulse Resp B/P (MAP) Pulse Ox O2 Delivery O2 Flow Rate FiO2 04/01/19 08:39 98.0 100 20 129/85 (100) 96 04/01/19 07:24 Room Air 04/01/19 04:00 99.6 108 18 124/93 (103) 95 04/01/19 00:00 97.6 104 18 142/92 (109) 94 03/31/19 21:00 Room Air 03/31/19 20:00 99.6 94 16 134/89 (104) 96 03/31/19 16:00 98.3 95 20 141/93 (109) 94 I&O Intake and Output 03/31/19 04/01/19 18:59 06:59 Intake Total 435 ml 900 ml Balance 435 ml 900 ml IV Total 435 ml 900 ml # Voids 2 2 Respiratory: clear Abdomen: soft, flat, tenderness, decreased bowel sounds Extremities: no tenderness Laboratory Tests Test 04/01/19 06:18 White Blood Count 17.1 K/UL (4.8-10.8) H Red Blood Count 4.55 M/UL (4.70-6.10) L Hemoglobin 14.3 G/DL (14.2-18.0) Hematocrit 42.9 % (42.0-52.0) Mean Corpuscular Volume 94 FL (80-99) Mean Corpuscular Hemoglobin 31.6 PG (27.0-31.0) H Mean Corpuscular Hemoglobin Concent 33.5 G/DL (32.0-36.0) Red Cell Distribution Width 10.9 % (11.6-14.8) L Platelet Count 210 K/UL (150-450) Mean Platelet Volume 6.5 FL (6.5-10.1) Neutrophils (%) (Auto) 82.1 % (45.0-75.0) H Lymphocytes (%) (Auto) 10.7 % (20.0-45.0) L Monocytes (%) (Auto) 6.9 % (1.0-10.0) Eosinophils (%) (Auto) 0.0 % (0.0-3.0) Basophils (%) (Auto) 0.3 % (0.0-2.0) Sodium Level 138 MMOL/L (136-145) Potassium Level 3.2 MMOL/L (3.5-5.1) L Chloride Level 102 MMOL/L (98-107) Carbon Dioxide Level 22 MMOL/L (21-32) Anion Gap 14 mmol/L (5-15) Blood Urea Nitrogen 10 mg/dL (7-18) Creatinine 0.8 MG/DL (0.55-1.30) Estimat Glomerular Filtration Rate > 60 mL/min (>60) Glucose Level 170 MG/DL (74-106) H Calcium Level 8.3 MG/DL (8.5-10.1) L Total Bilirubin 1.5 MG/DL (0.2-1.0) H Direct Bilirubin 0.5 MG/DL (0.0-0.3) H Aspartate Amino Transf (AST/SGOT) 73 U/L (15-37) H Alanine Aminotransferase (ALT/SGPT) 415 U/L (12-78) H Alkaline Phosphatase 161 U/L (46-116) H Total Protein 6.7 G/DL (6.4-8.2) Albumin 3.3 G/DL (3.4-5.0) L Globulin 3.4 g/dL Albumin/Globulin Ratio 1.0 (1.0-2.7) Amylase Level 134 U/L (25-115) H Lipase 438 U/L (73-393) H Assessment Additional Comments gallstone pancreatitis Plan Additional Comments Ofe Blevins MD Apr 01, 2019 12:07
--- NOTE | 2019-04-01 12:15 | NUR ---
NURSE NOTES:DR. CARRASCO CAME TO SEE PT.AND EXPLAINED SURGERY PROCEDURE.CONSENTED TO:LAPAROSCOPIC CHOLECYSTECTOMY,POSSIBLE OPEN.
[2019-04-01] MEDS ORDERED: D5 1/2NS 1000ml IV ONE (13:26)
--- NOTE | 2019-04-01 14:45 | NUR ---
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 REFUSED. TO TALK TO HIM.CHARGE NURSE AWARE.PT. 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 EDUCATION ABOUT THE SURGERY WAS ALSO PROVIDED TO PT.
[2019-04-01] MEDS: Piperacillin/Tazobactam 3.375 GM in NS 110 ML IVPB SCH ×2 (14:47→22:04)
[2019-04-01] MEDS ORDERED: Surgicel 4in x 8in TOPIC ONE (15:10)
[2019-04-01] MEDS ORDERED: LR 1000ml 1,000 ML IVLG SCH (15:29)
--- NOTE | 2019-04-01 15:29 | Anethesia Preoperative Eval ---
Anesthesia Pre-op PMH/ROS General Date of Evaluation: Apr 01, 2019 Time of Evaluation: 15:54 Anesthesiologist: Nuria ASA Score: ASA 3 - Emergency Mallampati Score Class I : Soft palate, uvula, fauces, pillars visible Class II: Soft palate, uvula, fauces visible Class III: Soft palate, base of uvula visible Class IV: Only hard plate visible Mallampati Classification: Class II Surgeon: Aime Diagnosis: Abd Pain Surgical Procedure: Laparoscopic Cholecystectomy Anesthesia History: none Family History: no anesthesia problems Allergies: Coded Allergies: No Known Allergies (Unverified , 03/29/19) Medications: see eMAR Patient NPO?: Yes NPO Date: Mar 31, 2019 NPO Time: 2300 Past Medical History Cardiovascular: Reports: HTN, other - HL Endocrine: Reports: DM Anesthesia Pre-op Phys. Exam Physician Exam Last Vital Signs Date Time Temp Pulse Resp B/P (MAP) Pulse Ox O2 Delivery O2 Flow Rate FiO2 04/01/19 08:39 98.0 100 20 129/85 (100) 96 04/01/19 07:24 Room Air Constitutional: NAD Neurologic: CN 2-12 intact Cardiovascular: RRR Respiratory: CTA Gastrointestinal: S/NT/ND Airway Exam Mallampati Score: Class II MO: full ROM: limited Teeth: missing, intact Anesthesia Pre-op A/P Labs Hematology Test 04/01/19 06:18 White Blood Count 17.1 K/UL (4.8-10.8) H Red Blood Count 4.55 M/UL (4.70-6.10) L Hemoglobin 14.3 G/DL (14.2-18.0) Hematocrit 42.9 % (42.0-52.0) Mean Corpuscular Volume 94 FL (80-99) Mean Corpuscular Hemoglobin 31.6 PG (27.0-31.0) H Mean Corpuscular Hemoglobin Concent 33.5 G/DL (32.0-36.0) Red Cell Distribution Width 10.9 % (11.6-14.8) L Platelet Count 210 K/UL (150-450) Mean Platelet Volume 6.5 FL (6.5-10.1) Neutrophils (%) (Auto) 82.1 % (45.0-75.0) H Lymphocytes (%) (Auto) 10.7 % (20.0-45.0) L Monocytes (%) (Auto) 6.9 % (1.0-10.0) Eosinophils (%) (Auto) 0.0 % (0.0-3.0) Basophils (%) (Auto) 0.3 % (0.0-2.0) Chemistry Test 04/01/19 06:18 Sodium Level 138 MMOL/L (136-145) Potassium Level 3.2 MMOL/L (3.5-5.1) L Chloride Level 102 MMOL/L (98-107) Carbon Dioxide Level 22 MMOL/L (21-32) Anion Gap 14 mmol/L (5-15) Blood Urea Nitrogen 10 mg/dL (7-18) Creatinine 0.8 MG/DL (0.55-1.30) Estimat Glomerular Filtration Rate > 60 mL/min (>60) Glucose Level 170 MG/DL (74-106) H Calcium Level 8.3 MG/DL (8.5-10.1) L Total Bilirubin 1.5 MG/DL (0.2-1.0) H Direct Bilirubin 0.5 MG/DL (0.0-0.3) H Aspartate Amino Transf (AST/SGOT) 73 U/L (15-37) H Alanine Aminotransferase (ALT/SGPT) 415 U/L (12-78) H Alkaline Phosphatase 161 U/L (46-116) H Total Protein 6.7 G/DL (6.4-8.2) Albumin 3.3 G/DL (3.4-5.0) L Globulin 3.4 g/dL Albumin/Globulin Ratio 1.0 (1.0-2.7) Amylase Level 134 U/L (25-115) H Lipase 438 U/L (73-393) H Risk Assessment & Plan Assessment: ASA 3E Plan: GA, GlideScope Go, SED Status Change Before Surgery: No Pre-Antibiotics Dru Gram Ancef IV Given Within 1 Hr of Incision: Yes Time Given: 16:16 David Quiñones MD Apr 01, 2019 15:29
[2019-04-01] MEDS ORDERED: Meperidine 50mg/ml Inj(FOR RIGORS ONLY) IVP PRN (15:30)
[2019-04-01] MEDS ORDERED: HYDROcodone/Acetamin 7.5/325 tab ORAL PRN (15:30)
[2019-04-01] MEDS ORDERED: LORazepam Inj 2mg/ml 1ml IV PRN (15:30)
[2019-04-01] MEDS ORDERED: Metoclopramide 10mg/2ml Inj IVP PRN ×2 (15:30→17:30)
[2019-04-01] MEDS ORDERED: oxyCODONE HCL/Acetaminophen 5/325mg ORAL PRN (15:30)
[2019-04-01] MEDS ORDERED: Midazolam 2mg/2ml Inj IVP PRN (15:30)
[2019-04-01] MEDS ORDERED: Labetalol 5mg/ml 20ml vial IV PRN (15:30)
[2019-04-01] MEDS ORDERED: fentaNYL 100 mcg/2 mL IV PRN (15:30)
[2019-04-01] MEDS ORDERED: Atropine Sulfate 0.4mg/ml inj IVP PRN (15:30)
[2019-04-01] MEDS ORDERED: DiphenhydrAMINE 50mg/ml Inj IVP PRN (15:30)
[2019-04-01] MEDS ORDERED: Hydromorphone 0.5mg/0.5ml inj IVP PRN ×2 (15:30→17:30)
[2019-04-01] MEDS ORDERED: HYDROcodone/Acetamin 5/325 tab ORAL PRN (15:30)
[2019-04-01] MEDS ORDERED: Acetaminophen (Non formulary) 100 ML IV ONE (15:30)
[2019-04-01] MEDS ORDERED: fentaNYL 100 mcg/2 mL IV ONE (15:31)
[2019-04-01] MEDS ORDERED: Propofol 200mg/20ml IV ONE (15:32)
[2019-04-01] MEDS ORDERED: Lidocaine 1% MPF 10mg/ml 5ml ONE (15:32)
[2019-04-01] MEDS ORDERED: Sodium Chloride 10ml vial INJ ONE (15:32)
--- NOTE | 2019-04-01 15:35 | NUR ---
NURSE NOTES:PRE OP CHECKLIST RELAYED TO ROXANA SU(SURGERY NURSE)INCLUDING EKG RESULTS.
--- NOTE | 2019-04-01 15:44 | Immediate Post-Op Evaluation ---
Immediate Post-Op Evalulation Immediate Post-Op Evalulation Procedure: Laparoscopic Cholecystectomy Date of Evaluation: Apr 01, 2019 Time of Evaluation: 17:55 IV Fluids: 400 LR Blood Products: 0 Estimated Blood Loss: 20 Urinary Output: 0 Blood Pressure Systolic: 113 Blood Pressure Diastolic: 72 Pulse Rate: 84 Respiratory Rate: 16 O2 Sat by Pulse Oximetry: 94 Temperature (Fahrenheit): 100.4 Pain Score (1-10): 2 Nausea: No Vomiting: No Complications 0 Patient Status: awake, reacts, patent, extubated, none Hydration Status: adequate Dru Gram Anceef IV Given Within 1 Hr of Incision: Yes Time Given: 16:16 David Quiñones MD Apr 01, 2019 15:44
--- NOTE | 2019-04-01 15:47 | 48 Hour Post Anesthesia Eval ---
Post Anesthesia Evaluation Procedure: Laparoscopic Cholecystectomy Date of Evaluation: Apr 01, 2019 Time of Evaluation: 19:58 Blood Pressure Systolic: 123 0: 74 Pulse Rate: 82 Respiratory Rate: 18 Temperature (Fahrenheit): 99.3 O2 Sat by Pulse Oximetry: 97 Airway: patent Nausea: No Vomiting: No Pain Intensity: 2 Hydration Status: adequate Cardiopulmonary Status: Stable Mental Status/LOC: patient returned to baseline Follow-up Care/Observations: 0 Post-Anesthesia Complications: 0 Follow-up care needed: N/A David Quiñones MD Apr 01, 2019 15:47
--- NOTE | 2019-04-01 15:50 | NUR ---
NURSE NOTES:BEDSIDE HANDOFF DONE WITH YANDEL(HEAVY EQUIPMENT DIESEL MECHANIC)PT. STABLE ON GLASS DEPOSITION TENDER.
[2019-04-01] MEDS ORDERED: Bacitracin 50000 Units Vial ONE (15:54)
[2019-04-01] MEDS ORDERED: Bupivacaine 0.25% Inj 30ml INJ ONE (15:54)
[2019-04-01] MEDS ORDERED: Sterile Water Irrig 1000ml IRRIG ONE (16:00)
[2019-04-01] MEDS ORDERED: LR 1000ml ONE (16:00)
[2019-04-01] MEDS ORDERED: NS Irrig 1000ml ONE (16:00)
--- NOTE | 2019-04-01 16:16 | Pre-Procedure Note/Attestation ---
Pre-Procedure Note/Attestation Complete Prior to Procedure Planned Procedure: not applicable Procedure Narrative: laparocopic cholecystectomy possible open cholecystectomy Indications for Procedure Pre-Operative Diagnosis: gallstone pancreatitis Attestation I attest that I discussed the nature of the procedure; its benefits; risks and complications; and alternatives (and the risks and benefits of such alternatives ), prior to the procedure, with the patient (or the patient's legal retail sales representative). I attest that, if there was a reasonable possibility of needing a blood transfusion, the patient (or the patient's legal retail sales representative) was given the [facility] standardized written summary, pursuant to the [place] Blood Safety Act ([place] Health and Safety Code # 1645, as amended). I attest that I re-evaluated the patient just prior to the surgery and that there has been no change in the patient's H&P, except as documented below: Ofe Salomon MD Apr 01, 2019 16:16
--- NOTE | 2019-04-01 16:22 | Infectious Diseases Prog Note ---
Assessment/Plan Problems: (1) Cholelithiasis Assessment & Plan: with possible cholecystitis and persistent pain with increasing wbc, will broaden his antibiotics coverage to zosyn, for cholecystectomy this pm by surgery (2) Elevated transaminase level Assessment & Plan: suspect due to the above , will screen for hepatitis, close monitor or liver function (3) Cholecystitis Assessment & Plan: possible due to the above with pain and elevated transaminase , continue antibiotics pending surgical resection soon . surgery is following (4) Chest pain Assessment & Plan: rule out ACS, cardiology consult Subjective Constitutional: Reports: no symptoms HEENT: Reports: no symptoms Respiratory: Reports: no symptoms Breasts: Reports: no symptoms Cardiovascular: Reports: no symptoms Gastrointestinal/Abdominal: Reports: nausea, bloating, other - epigastric pain Genitourinary: Reports: no symptoms Neurologic: Reports: no symptoms Psychiatric: Reports: no symptoms Skin: Reports: no symptoms Endocrine: Reports: no symptoms Hematologic: Reports: no symptoms Musculoskeletal: Reports: no symptoms Allergies: Coded Allergies: No Known Allergies (Unverified , 03/29/19) Objective Vital Signs Last 24 Hour Vital Signs Date Time Temp Pulse Resp B/P (MAP) Pulse Ox O2 Delivery O2 Flow Rate FiO2 04/01/19 08:39 98.0 100 20 129/85 (100) 96 04/01/19 07:24 Room Air 04/01/19 04:00 99.6 108 18 124/93 (103) 95 04/01/19 00:00 97.6 104 18 142/92 (109) 94 03/31/19 21:00 Room Air 03/31/19 20:00 99.6 94 16 134/89 (104) 96 Height (Feet): 5 Height (Inches): 8.00 Weight (Pounds): 160 General Appearance: WD/WN, no acute distress HEENT: normocephalic, atraumatic, anicteric, mucous membranes moist, PERRL, EOMI, pharynx normal, supple, no JVD Respiratory/Chest: chest wall non-tender, lungs clear, no respiratory distress , no accessory muscle use, decreased breath sounds Cardiovascular: normal peripheral pulses, normal rate, regular rhythm, no gallop/murmur, no JVD Abdomen: no organomegaly, no mass, no scars, hypoactive bowel sounds, distended , tender Genitourinary: normal external genitalia Extremities: no cyanosis, no clubbing Skin: no rash, no lesions, no ulcers Neurologic/Psychiatric: ship mate II-XII grossly normal, no motor/sensory deficits, alert, oriented x 3, responsive Lymphatic: no neck adenopathy, no groin adenopathy Musculoskeletal: normal muscle bulk, no effusion Laboratory Tests Test 04/01/19 06:18 White Blood Count 17.1 K/UL (4.8-10.8) H Red Blood Count 4.55 M/UL (4.70-6.10) L Hemoglobin 14.3 G/DL (14.2-18.0) Hematocrit 42.9 % (42.0-52.0) Mean Corpuscular Volume 94 FL (80-99) Mean Corpuscular Hemoglobin 31.6 PG (27.0-31.0) H Mean Corpuscular Hemoglobin Concent 33.5 G/DL (32.0-36.0) Red Cell Distribution Width 10.9 % (11.6-14.8) L Platelet Count 210 K/UL (150-450) Mean Platelet Volume 6.5 FL (6.5-10.1) Neutrophils (%) (Auto) 82.1 % (45.0-75.0) H Lymphocytes (%) (Auto) 10.7 % (20.0-45.0) L Monocytes (%) (Auto) 6.9 % (1.0-10.0) Eosinophils (%) (Auto) 0.0 % (0.0-3.0) Basophils (%) (Auto) 0.3 % (0.0-2.0) Sodium Level 138 MMOL/L (136-145) Potassium Level 3.2 MMOL/L (3.5-5.1) L Chloride Level 102 MMOL/L (98-107) Carbon Dioxide Level 22 MMOL/L (21-32) Anion Gap 14 mmol/L (5-15) Blood Urea Nitrogen 10 mg/dL (7-18) Creatinine 0.8 MG/DL (0.55-1.30) Estimat Glomerular Filtration Rate > 60 mL/min (>60) Glucose Level 170 MG/DL (74-106) H Calcium Level 8.3 MG/DL (8.5-10.1) L Total Bilirubin 1.5 MG/DL (0.2-1.0) H Direct Bilirubin 0.5 MG/DL (0.0-0.3) H Aspartate Amino Transf (AST/SGOT) 73 U/L (15-37) H Alanine Aminotransferase (ALT/SGPT) 415 U/L (12-78) H Alkaline Phosphatase 161 U/L (46-116) H Total Protein 6.7 G/DL (6.4-8.2) Albumin 3.3 G/DL (3.4-5.0) L Globulin 3.4 g/dL Albumin/Globulin Ratio 1.0 (1.0-2.7) Amylase Level 134 U/L (25-115) H Lipase 438 U/L (73-393) H Current Medications Medications (Trade) Dose Ordered Sig/Ben Route PRN Reason Start Time Stop Time Status Last Admin Dose Admin Acetaminophen/ Hydrocodone Bitart ([place] 5/325) 1 tab Q1H PRN ORAL Mild Pain (Pain Scale 1-3) 04/01/19 15:30 04/01/19 23:00 Acetaminophen/ Hydrocodone Bitart ([place] 7.5/325) 1 tab Q1H PRN ORAL Moderate Pain (Pain Scale 4-6) 04/01/19 15:30 04/01/19 23:00 Al Hydroxide/Mg Hydroxide (Mylanta) 15 ml Q1H PRN ORAL gi upset 04/01/19 15:30 04/01/19 23:00 Atropine Sulfate (Atropine 0.4mg/ ml) 0.5 mg Q5M PRN IVP HR<40 BPM 04/01/19 15:30 04/01/19 23:00 Dextrose (Dextrose 50%) 25 ml Q30M PRN IV Hypoglycemia 03/30/19 13:30 04/29/19 13:29 Dextrose (Dextrose 50%) 50 ml Q30M PRN IV Hypoglycemia 03/30/19 13:30 04/29/19 13:29 Dextrose/Sodium Chloride 1,000 ml @ 75 mls/hr [id number] IV 03/30/19 11:00 04/29/19 10:59 04/01/19 03:11 Diphenhydramine HCl (Benadryl) 25 mg Q15M PRN IVP Itching 04/01/19 15:30 04/01/19 23:00 Fentanyl Citrate (Sublimaze 100 mcg/2 mL) 25 mcg Q10M PRN IV Moderate Pain (Pain Scale 4-6) 04/01/19 15:30 04/01/19 23:00 Heparin Sodium (Porcine) (Heparin 5000 units/ml) 5,000 units EVERY 12 HOURS SUBQ 03/30/19 09:00 04/29/19 08:59 04/01/19 08:30 Hydralazine HCl (Apresoline) 5 mg Q30M PRN IV SBP>160 / DBP>90 04/01/19 15:30 04/01/19 23:00 Hydromorphone HCl (Dilaudid) 0.5 mg Q15M PRN IVP Severe Pain (Pain Scale 7-10) 04/01/19 15:30 04/01/19 23:00 Hydromorphone HCl (Dilaudid) 1 mg Q4H PRN IVP Severe Pain (Pain Scale 7-10) 03/31/19 13:00 04/07/19 12:59 04/01/19 11:05 Insulin Aspart (NovoLOG) BEFORE MEALS AND HS SUBQ 03/30/19 13:15 04/29/19 13:14 04/01/19 11:13 Labetalol HCl (Normodyne) 5 mg Q10M PRN IV SBP>160 / DBP>90 04/01/19 15:30 04/01/19 23:00 Lactated Ringer's 1,000 ml @ 10 mls/hr Q24H IVLG 04/01/19 15:29 04/01/19 17:28 Lorazepam (Ativan 2mg/ml 1ml) 1 mg Q15M PRN IV For Anxiety 04/01/19 15:30 04/01/19 23:00 Meloxicam (Mobic) 15 mg DAILY ORAL 03/30/19 09:00 04/29/19 08:59 04/01/19 08:28 Meperidine HCl (Demerol) 25 mg Q5M PRN IVP Shivering.May repeat x 1 04/01/19 15:30 04/01/19 23:00 Metoclopramide HCl (Reglan) 10 mg Q1H PRN IVP Nausea & Vomiting 04/01/19 15:30 04/01/19 23:00 Midazolam HCl (Versed 2mg/2ml vial) 1 mg Q15M PRN IVP For Anxiety 04/01/19 15:30 04/01/19 23:00 Morphine Sulfate (Morphine Sulfate) 2 mg Q4H PRN IVP For Pain 03/30/19 07:45 04/06/19 07:44 04/01/19 08:29 Ondansetron HCl (Zofran) 4 mg Q1H PRN IVP Nausea & Vomiting 04/01/19 15:30 04/01/19 23:00 Ondansetron HCl (Zofran) 4 mg Q6H PRN IVP Nausea & Vomiting 03/30/19 07:45 04/29/19 07:44 Oxycodone/ Acetaminophen (Percocet 5-325) 1 tab Q1H PRN ORAL Severe Pain (Pain Scale 7-10) 04/01/19 15:30 04/01/19 23:00 Pantoprazole (Protonix) 40 mg DAILY ORAL 03/30/19 09:00 04/29/19 08:59 04/01/19 08:28 Piperacillin Sod/ Tazobactam Sod 3.375 gm/Sodium Chloride 110 ml @ 27.5 mls/hr EVERY 8 HOURS IVPB 04/01/19 14:30 04/06/19 14:29 04/01/19 14:47 Sucralfate (Carafate) 1 gm FOUR TIMES A DAY ORAL 03/30/19 13:00 04/29/19 12:59 04/01/19 08:28 Mita Bloom M.D. Apr 01, 2019 16:22
[2019-04-01] MEDS ORDERED: NS Irrig 1000ml IRRIG ONE (16:30)
[2019-04-01] MEDS ORDERED: Glycopyrrolate 0.2mg/ml 1ml Vial ONE (16:50)
[2019-04-01] MEDS ORDERED: Neostigmine 1mg/ml 10ml Inj ONE (16:50)
[2019-04-01] MEDS ORDERED: Zemuron 50mg/5ml Inj IV ONE (17:19)
[2019-04-01] MEDS ORDERED: Naloxone 0.4mg/ml Inj ONE (17:28)
--- NOTE | 2019-04-01 17:28 | Brief Operative Note ---
Immediate Post Operative Note Operative Note Pre-op Diagnosis: gallstone pancreatitis Post-op Diagnosis: same as pre-op Findings: consistent w/pre-op dx studies Surgeon: MD Donn Litigation Docket Manager: none Anesthesiologist: Dr. Mcnair Anesthesia: general Specimen: yes Complications: none Condition: stable Fluids: per anesthesiologist Estimated Blood Loss: volume - 20 ml Drains: none Implant(s) used?: No Ofe Salomon MD Apr 01, 2019 17:28
[2019-04-01] MEDS ORDERED: Acetaminophen 650 MG SUPP RECTAL PRN (17:30)
[2019-04-01] MEDS ORDERED: Piperacillin/Tazobactam 3.375 GM in NS 110 ML IVPB SCH (17:45)
--- NOTE | 2019-04-01 18:06 | NUR ---
NURSE NOTES:DANILO CONDON TALKED TO PATIENTS RE:OUTCOME OF SURGERY INTERPRETED BY EDUAR SU.
--- NOTE | 2019-04-01 18:45 | NUR ---
NURSE NOTES:RECEIVED FR. PACU BY BED S/P LAP LEONARD,UNDER GENERAL ANESTHESIA,DROWSY BUT AROUSABLE AND ABLE TO RESPONDS VERBALLY TO QUESTIONS,ABLE TO MOVE ALL EXTREMITIES,WITH N/C AT 2 LITERS,IV SITE PATENT,ABDOMEN BLOATED AND WITH 4 LAP SITES WITH LITTLE STAIN.PER REPORT FR. PACU NURSE(ROMA IS AWARE. NO C/O PAIN, FAMILY AT BEDSIDE.WILL CONTINUE TO MONITOR.
--- NOTE | 2019-04-01 19:15 | Operative Note - Dictated ---
DATE OF OPERATION: 04/01/2019 PREOPERATIVE DIAGNOSIS: Gallstone pancreatitis. POSTOPERATIVE DIAGNOSIS: Gallstone pancreatitis. OPERATION: Laparoscopic cholecystectomy. COMPLICATION: None. SURGEON: Ofe Salomon M.D. SOLDERING MACHINE FEEDER: None. ANESTHESIA: General with endotracheal tube. ANESTHESIOLOGIST: David Quiñones M.D. INDICATION: This is a 49-year-old [place] male who presented to emergency room complaining of abdominal pain for 2 days. The pain was located at the upper abdomen and was associated with nausea. Physical examination on admission showed severe tenderness at the upper abdomen, which was more pronounced at the epigastrium and left upper quadrant. Admission CBC was 12,700 with normal differential. Chemistry panel showed lipase of over 2000. Ultrasound showed cholelithiasis. As the bilirubin was elevated on admission it was 2.1 with a direct bilirubin of 0.9, an MRCP was obtained which failed to show choledocholithiasis, but showed pancreatitis. The patient was kept on conservative treatment and although the amylase dropped to 134 and lipase of 438 and the total bilirubin of 1.5 with direct bilirubin of 0.5 and even the liver enzymes improved, but the patient continued complaining of severe abdominal pain. The WBC raised to 17,100 with a left shift and the patient insisted on having the cholecystectomy, and so the decision was made to perform a laparoscopic cholecystectomy, possible open cholecystectomy. DESCRIPTION OF PROCEDURE: The patient was placed supine on the operating table. After general anesthesia with endotracheal tube, the abdomen was properly prepped and draped. Initially examination under general anesthesia was performed, which showed a mass at that the right upper quadrant more towards the midline. A small incision was given below the umbilicus and Veress needle was introduced into the intraperitoneal cavity. This cavity was insufflated up to 15 mmHg and then the Veress needle was removed and a 5 mm trocar was placed in the intraperitoneal cavity. Laparoscope and camera was introduced into the intraperitoneal cavity and under direct vision, 5 mm trocars were placed at the right flank and right upper quadrant. A working trocar was placed in the epigastrium. Initially exploration was performed, which showed the diaphragm to be normal. The part of the stomach, which can be seen was normal. Liver was normal. The gallbladder was covered with omentum and finally the gallbladder was exposed, which showed signs of chronic cholecystitis with edema and the bowels were covered with omentum. The patient had a large mass below the gallbladder, which seemed to be the head of the pancreas, but anyway we were able to grasp the fundus of the gallbladder with a grasper through the trocar at the right flank and the fundus was retracted cephalad and lateral. The neck of the gallbladder was grasped with another grasper and Calot triangle was exposed. The gallbladder had severe edema and besides there was bloody fluid in the abdomen, which seemed to be from the pancreatitis. Blunt dissection was performed at the Calot triangle and the cystic duct was identified and isolated. This duct was doubly ligated with a hemoclip and was transected. Further dissection was performed. The cystic artery was identified and doubly ligated and transected. After this, the gallbladder was gradually released from the gallbladder bed from the neck towards the fundus. The gallbladder was removed from the gallbladder bed and was removed from the intraperitoneal cavity through the incision in the epigastrium. To accommodate the size of the gallbladder, we had to extend the incision in the epigastrium. After removal of the gallbladder, the pancreatic fluid in the abdomen was suctioned out and then the right upper quadrant cavity was thoroughly irrigated with antibiotic solution. Another exploration was performed, which failed to show any bleeding or complication. The trocars were removed under direct vision and then the incisions were infiltrated with total of 30 mL of Marcaine 0.25%. The subcutaneous tissue was approximated with 4-0 chromic and the skin incisions were approximated with running subcuticular suture of 4-0 chromic. The patient tolerated the procedure very well and was transferred to recovery room in stable condition and extubated. The sponge and needle count correct. Estimated blood loss 20 mL. Condition of the patient at the end of the procedure stable. Ofe Salomon M.D. DR: SONIA JOB#: [id number] CC:
--- NOTE | 2019-04-01 19:30 | NUR ---
NURSE NOTES: Report taken from GEORGES Alejandro. Patient is in bed and sedated. A&Ox3, due to anesthesia, patient is confused as to his current situation. No signs of distress on room air. Patient is able to describe his pain, 5/10. Abdominal distention noted, MD is aware. Surgical incision sites are clean and intact, some minor staining, MD aware. Skin intact otherwise IV sites c/d/i and patent, Lt site running D51/2NS + 20KCl at 100mls/hr. Patient is not able to ambulate due to sedation and risk of fall. NPO order continues. Bed in lowest position, call light within reach.
--- NOTE | 2019-04-01 19:39 | NUR ---
HAND-OFF: Report given to NARDA SU.PATIENT STABLE.
[2019-04-01] MEDS: Pantoprazole Inj IVP SCH (20:00)
[2019-04-01] MEDS: D5 1/2NS w/KCl 20mEq 1,000 ML IV SCH (20:30)
--- NOTE | 2019-04-01 22:10 | General Progress Note ---
Assessment/Plan Assessment/Plan: Patient in the OR. Exam could not be performed. Case Discussed with the surgeon and GI. Labs reviewed. Also, discussed with the RN. Agreed with plan of care. ASSESSMENT AND PLAN: 1. Acute cholecystitis. 2. Acute Pancreatitis 3. Dysmetabolic syndrom 3. Abnormal LFT. 4. GI and DVT prophylaxis. Plan: Patient is medically stable for planned surgery. No medical contra-indication, with less than 1% esteban-op cardiovascular risk currently in OR Subjective Allergies: Coded Allergies: No Known Allergies (Unverified , 03/29/19) Objective Last 24 Hour Vital Signs Date Time Temp Pulse Resp B/P (MAP) Pulse Ox O2 Delivery O2 Flow Rate FiO2 04/01/19 18:45 99.4 82 18 109/74 (86) 96 04/01/19 18:30 99.0 83 16 113/76 98 Nasal Cannula 3 04/01/19 18:20 77 18 117/76 97 Nasal Cannula 3 04/01/19 18:10 83 18 105/69 97 Nasal Cannula 3 04/01/19 18:00 83 18 114/68 98 Nasal Cannula 3 04/01/19 17:55 83 20 112/69 98 Nasal Cannula 3 04/01/19 17:50 82 17 104/71 98 Simple Mask 6 04/01/19 17:45 84 15 112/72 97 Simple Mask 6 04/01/19 17:44 82 18 97 04/01/19 17:43 100.0 86 12 113/74 96 Simple Mask 6 04/01/19 17:43 84 16 94 04/01/19 08:39 98.0 100 20 129/85 (100) 96 04/01/19 07:24 Room Air 04/01/19 04:00 99.6 108 18 124/93 (103) 95 04/01/19 00:00 97.6 104 18 142/92 (109) 94 Intake and Output 03/31/19 04/01/19 19:00 07:00 Intake Total 435 ml 900 ml Balance 435 ml 900 ml IV Total 435 ml 900 ml # Voids 2 2 Laboratory Tests 04/01/19 06:18: White Blood Count 17.1H, Red Blood Count 4.55L, Hemoglobin 14.3, Hematocrit 42.9 , Mean Corpuscular Volume 94, Mean Corpuscular Hemoglobin 31.6H, Mean Corpuscular Hemoglobin Concent 33.5, Red Cell Distribution Width 10.9L, Platelet Count 210, Mean Platelet Volume 6.5, Neutrophils (%) (Auto) 82.1H, Lymphocytes (%) (Auto) 10.7L, Monocytes (%) (Auto) 6.9, Eosinophils (%) (Auto) 0.0, Basophils (%) (Auto) 0.3, Sodium Level 138, Potassium Level 3.2L, Chloride Level 102, Carbon Dioxide Level 22, Anion Gap 14, Blood Urea Nitrogen 10, Creatinine 0.8, Estimat Glomerular Filtration Rate > 60, Glucose Level 170H, Calcium Level 8.3L, Total Bilirubin 1.5H, Direct Bilirubin 0.5H, Aspartate Amino Transf (AST/SGOT) 73H, Alanine Aminotransferase (ALT/SGPT) 415H, Alkaline Phosphatase 161H, Total Protein 6.7, Albumin 3.3L, Globulin 3.4, Albumin/ Globulin Ratio 1.0, Amylase Level 134H, Lipase 438H Height (Feet): 5 Height (Inches): 8.00 Weight (Pounds): 160 Johnson Duenas MD Apr 01, 2019 22:10
[2019-04-02] VITALS: BP 121/89
[2019-04-02] MEDS: HYDROmorphone 1mg/ml Carpuject IVP PRN ×2 (00:45→04:12)
[2019-04-02 04:00] VITALS: BP 125/84
[2019-04-02] MEDS: D5 1/2NS w/KCl 20mEq 1,000 ML IV SCH ×2 (05:00→13:32)
[2019-04-02 06:08] LABS: BASOPHILS % (AUTO) 0.4 % (0.0-2.0); EOSINOPHILS % (AUTO) 0.4 % (0.0-3.0); HEMATOCRIT 36.9 % (42.0-52.0); HEMOGLOBIN 12.4 G/DL (14.2-18.0); LYMPHOCYTES % (AUTO) 14.5 % (20.0-45.0); MEAN CORPUSCULAR VOLUME 94 FL (80-99); MONOCYTES % (AUTO) 7.1 % (1.0-10.0); NEUTROPHILS % (AUTO) 77.8 % (45.0-75.0); PLATELET COUNT 178 K/UL (150-450); RED BLOOD COUNT 3.93 M/UL (4.70-6.10); WHITE BLOOD COUNT 13.7 K/UL (4.8-10.8)
[2019-04-02 06:16] LABS: ALANINE AMINOTRANSFERASE 261 U/L (12-78); ALBUMIN 2.8 G/DL (3.4-5.0); ALBUMIN/GLOBULIN RATIO 0.8 (1.0-2.7); ALKALINE PHOSPHATASE 125 U/L (46-116); AMYLASE 53 U/L (25-115); ANION GAP 6 mmol/L (5-15); ASPARTATE AMINO TRANSFERASE 118 U/L (15-37); BLOOD UREA NITROGEN 13 mg/dL (7-18); CARBON DIOXIDE 27 MMOL/L (21-32); CHLORIDE 106 MMOL/L (98-107); CREATININE 0.9 MG/DL (0.55-1.30); POTASSIUM 3.5 MMOL/L (3.5-5.1); SODIUM 139 MMOL/L (136-145)
[2019-04-02] MEDS: Piperacillin/Tazobactam 3.375 GM in NS 110 ML IVPB SCH ×3 (06:25→21:37)
[2019-04-02] MEDS: NovoLOG Insulin Flexpen SUBQ SCH ×4 (06:26→21:43)
--- NOTE | 2019-04-02 07:39 | NUR ---
HAND-OFF: Report given to GEORGES Montemayor. Patient asleep, VS stable.
--- NOTE | 2019-04-02 07:40 | NUR ---
NURSE NOTES: Patient lying in bed awake. Complain of pain 7/10 on abdomen. Will administer pain medication as ordered. Surgical dressing stained and will continue to monitor. IV dressing intact and dry. Bed lowest position. Call light within reach. Will continue to monitor.
[2019-04-02 08:00] VITALS: BP 125/84
[2019-04-02] MEDS: Sucralfate 1gm tab ORAL SCH ×4 (09:03→21:36)
[2019-04-02] MEDS: Meloxicam 15 MG TAB ORAL SCH (09:03)
[2019-04-02] MEDS: Pantoprazole Inj IVP SCH (09:03)
[2019-04-02] MEDS: Heparin 5000 units/ml inj SUBQ SCH ×2 (09:06→21:44)
--- NOTE | 2019-04-02 10:38 | GI Progress Note ---
Assessment/Plan Problems: (1) Cholelithiasis ICD Codes: K80.20 - Calculus of gallbladder without cholecystitis without obstruction SNOMED: 527523129 Qualifiers: Qualified Codes: K80.00 - Calculus of gallbladder with acute cholecystitis without obstruction (2) Elevated transaminase level ICD Codes: R74.0 - Nonspecific elevation of levels of transaminase and lactic acid dehydrogenase [LDH] SNOMED: 323021354, 703294139 (3) Pancreatitis ICD Codes: K85.90 - Acute pancreatitis without necrosis or infection, unspecified SNOMED: 42023633 (4) Cholecystitis ICD Codes: K81.9 - Cholecystitis, unspecified SNOMED: 00176074 Status: unchanged Status Narrative Discussed with Dr. Leahy Assessment/Plan Status post laparoscopic cholecystectomy on follow-up surgical recommendations Abdominal MRI negative, hold ERCP plans Obtain KUB for abdominal distention PPI Pain management Zofran as needed Follow labs The patient was seen and examined at bedside and all new and available data was reviewed in the patients chart. I agree with the above findings, impression and plan. (Patient seen earlier today. Signature stamp does not reflect patient encounter time.). - Stanley Leahy MD Subjective Subjective Continues to complain of severe abdominal pain Abdominal bloating and distention Is not passing any gas Last bowel movement prior to surgery Objective Last 24 Hour Vital Signs Date Time Temp Pulse Resp B/P (MAP) Pulse Ox O2 Delivery O2 Flow Rate FiO2 04/02/19 08:00 99.5 97 20 125/84 (98) 96 04/02/19 04:00 98.5 88 17 125/84 (98) 97 04/02/19 00:00 98.7 89 18 121/89 (100) 97 04/01/19 21:00 Room Air 04/01/19 20:00 97.5 77 18 122/77 (92) 98 04/01/19 18:45 99.4 82 18 109/74 (86) 96 04/01/19 18:30 99.0 83 16 113/76 98 Nasal Cannula 3 04/01/19 18:20 77 18 117/76 97 Nasal Cannula 3 04/01/19 18:10 83 18 105/69 97 Nasal Cannula 3 04/01/19 18:00 83 18 114/68 98 Nasal Cannula 3 04/01/19 17:55 83 20 112/69 98 Nasal Cannula 3 04/01/19 17:50 82 17 104/71 98 Simple Mask 6 04/01/19 17:45 84 15 112/72 97 Simple Mask 6 04/01/19 17:44 82 18 97 04/01/19 17:43 100.0 86 12 113/74 96 Simple Mask 6 04/01/19 17:43 84 16 94 Intake and Output 04/01/19 04/02/19 19:00 07:00 Intake Total 1025 ml Output Total 50 ml 1000 ml Balance 975 ml -1000 ml IV Total 1025 ml Output Urine Total 1000 ml Estimated Blood Loss 50 ml # Voids 2 2 Laboratory Tests Test 04/02/19 05:00 White Blood Count 13.7 K/UL (4.8-10.8) H Red Blood Count 3.93 M/UL (4.70-6.10) L Hemoglobin 12.4 G/DL (14.2-18.0) L Hematocrit 36.9 % (42.0-52.0) L Mean Corpuscular Volume 94 FL (80-99) Mean Corpuscular Hemoglobin 31.6 PG (27.0-31.0) H Mean Corpuscular Hemoglobin Concent 33.7 G/DL (32.0-36.0) Red Cell Distribution Width 11.0 % (11.6-14.8) L Platelet Count 178 K/UL (150-450) Mean Platelet Volume 6.5 FL (6.5-10.1) Neutrophils (%) (Auto) 77.8 % (45.0-75.0) H Lymphocytes (%) (Auto) 14.5 % (20.0-45.0) L Monocytes (%) (Auto) 7.1 % (1.0-10.0) Eosinophils (%) (Auto) 0.4 % (0.0-3.0) Basophils (%) (Auto) 0.4 % (0.0-2.0) Sodium Level 139 MMOL/L (136-145) Potassium Level 3.5 MMOL/L (3.5-5.1) Chloride Level 106 MMOL/L (98-107) Carbon Dioxide Level 27 MMOL/L (21-32) Anion Gap 6 mmol/L (5-15) Blood Urea Nitrogen 13 mg/dL (7-18) Creatinine 0.9 MG/DL (0.55-1.30) Estimat Glomerular Filtration Rate > 60 mL/min (>60) Glucose Level 191 MG/DL (74-106) H Calcium Level 8.0 MG/DL (8.5-10.1) L Total Bilirubin 1.0 MG/DL (0.2-1.0) Aspartate Amino Transf (AST/SGOT) 118 U/L (15-37) H Alanine Aminotransferase (ALT/SGPT) 261 U/L (12-78) H Alkaline Phosphatase 125 U/L (46-116) H Total Protein 6.3 G/DL (6.4-8.2) L Albumin 2.8 G/DL (3.4-5.0) L Globulin 3.5 g/dL Albumin/Globulin Ratio 0.8 (1.0-2.7) L Amylase Level 53 U/L (25-115) Lipase 141 U/L (73-393) Height (Feet): 5 Height (Inches): 8.00 Weight (Pounds): 160 General Appearance: WD/WN, no apparent distress, alert Cardiovascular: normal rate Respiratory/Chest: normal breath sounds, no respiratory distress Abdominal Exam: normal bowel sounds, non tender, soft, distended Extremities: normal range of motion, non-tender Mushtaq Lynne NP Apr 02, 2019 10:38
[2019-04-02 12:00] VITALS: BP 124/89
--- NOTE | 2019-04-02 12:35 | Diagnostic Imaging Report ---
Indication: Abdominal pain, status post cholecystectomy Technique: Supine view of the abdomen Comparison: none Findings: Small bowel loops are diffusely mildly dilated, particularly the left upper quadrant. Gas is seen in the colon. No definite free intraperitoneal gas although evaluation for such is limited on a supine image. There are cholecystectomy clips Impression: Dilated small bowel loops, probably on the basis of postoperative ileus given history of recent surgery, although the possibility of small bowel obstruction should also be considered. Correlate with clinical findings and consider follow-up radiography as indicated
--- NOTE | 2019-04-02 13:16 | Infectious Diseases Prog Note ---
Assessment/Plan Problems: (1) Cholelithiasis Assessment & Plan: with cholecystitis and persistent pain with increasing wbc, continue wide spectrum antibiotics coverage with zosyn for 48 hrs after his surgery , S/P cholecystectomy by surgery (2) Elevated transaminase level Assessment & Plan: suspect due to the above , screening for hepatitis is negative , close monitor or liver function (3) Cholecystitis Assessment & Plan: with pain and elevated transaminase , S/P LAP LEONARD , continue antibiotics for 48 hours after surgical resection . surgery is following (4) Chest pain Assessment & Plan: resolved Subjective Constitutional: Reports: no symptoms HEENT: Reports: no symptoms Respiratory: Reports: no symptoms Breasts: Reports: no symptoms Cardiovascular: Reports: no symptoms Gastrointestinal/Abdominal: Reports: constipation, bloating, other - epigastric pain Genitourinary: Reports: no symptoms Neurologic: Reports: no symptoms Psychiatric: Reports: no symptoms Skin: Reports: no symptoms Endocrine: Reports: no symptoms Hematologic: Reports: no symptoms Musculoskeletal: Reports: no symptoms Allergies: Coded Allergies: No Known Allergies (Unverified , 03/29/19) Objective Vital Signs Last 24 Hour Vital Signs Date Time Temp Pulse Resp B/P (MAP) Pulse Ox O2 Delivery O2 Flow Rate FiO2 04/02/19 12:00 98.6 92 20 124/89 (101) 98 04/02/19 09:00 Room Air 04/02/19 08:00 99.5 97 20 125/84 (98) 96 04/02/19 04:00 98.5 88 17 125/84 (98) 97 04/02/19 00:00 98.7 89 18 121/89 (100) 97 04/01/19 21:00 Room Air 04/01/19 20:00 97.5 77 18 122/77 (92) 98 04/01/19 18:45 99.4 82 18 109/74 (86) 96 04/01/19 18:30 99.0 83 16 113/76 98 Nasal Cannula 3 04/01/19 18:20 77 18 117/76 97 Nasal Cannula 3 04/01/19 18:10 83 18 105/69 97 Nasal Cannula 3 04/01/19 18:00 83 18 114/68 98 Nasal Cannula 3 04/01/19 17:55 83 20 112/69 98 Nasal Cannula 3 04/01/19 17:50 82 17 104/71 98 Simple Mask 6 04/01/19 17:45 84 15 112/72 97 Simple Mask 6 04/01/19 17:44 82 18 97 04/01/19 17:43 100.0 86 12 113/74 96 Simple Mask 6 04/01/19 17:43 84 16 94 Height (Feet): 5 Height (Inches): 8.00 Weight (Pounds): 160 General Appearance: WD/WN, no acute distress HEENT: normocephalic, atraumatic, anicteric, mucous membranes moist, PERRL Respiratory/Chest: chest wall non-tender, lungs clear, normal breath sounds, no respiratory distress, no accessory muscle use Cardiovascular: normal peripheral pulses, normal rate, regular rhythm, no gallop/murmur, no JVD Abdomen: no organomegaly, no mass, absent bowel sounds, distended, tender Extremities: no cyanosis, no clubbing Skin: no rash, no lesions, no ulcers Neurologic/Psychiatric: alert, responsive Lymphatic: no neck adenopathy, no groin adenopathy Musculoskeletal: normal muscle bulk, no effusion Laboratory Tests Test 04/02/19 05:00 White Blood Count 13.7 K/UL (4.8-10.8) H Red Blood Count 3.93 M/UL (4.70-6.10) L Hemoglobin 12.4 G/DL (14.2-18.0) L Hematocrit 36.9 % (42.0-52.0) L Mean Corpuscular Volume 94 FL (80-99) Mean Corpuscular Hemoglobin 31.6 PG (27.0-31.0) H Mean Corpuscular Hemoglobin Concent 33.7 G/DL (32.0-36.0) Red Cell Distribution Width 11.0 % (11.6-14.8) L Platelet Count 178 K/UL (150-450) Mean Platelet Volume 6.5 FL (6.5-10.1) Neutrophils (%) (Auto) 77.8 % (45.0-75.0) H Lymphocytes (%) (Auto) 14.5 % (20.0-45.0) L Monocytes (%) (Auto) 7.1 % (1.0-10.0) Eosinophils (%) (Auto) 0.4 % (0.0-3.0) Basophils (%) (Auto) 0.4 % (0.0-2.0) Sodium Level 139 MMOL/L (136-145) Potassium Level 3.5 MMOL/L (3.5-5.1) Chloride Level 106 MMOL/L (98-107) Carbon Dioxide Level 27 MMOL/L (21-32) Anion Gap 6 mmol/L (5-15) Blood Urea Nitrogen 13 mg/dL (7-18) Creatinine 0.9 MG/DL (0.55-1.30) Estimat Glomerular Filtration Rate > 60 mL/min (>60) Glucose Level 191 MG/DL (74-106) H Calcium Level 8.0 MG/DL (8.5-10.1) L Total Bilirubin 1.0 MG/DL (0.2-1.0) Aspartate Amino Transf (AST/SGOT) 118 U/L (15-37) H Alanine Aminotransferase (ALT/SGPT) 261 U/L (12-78) H Alkaline Phosphatase 125 U/L (46-116) H Total Protein 6.3 G/DL (6.4-8.2) L Albumin 2.8 G/DL (3.4-5.0) L Globulin 3.5 g/dL Albumin/Globulin Ratio 0.8 (1.0-2.7) L Amylase Level 53 U/L (25-115) Lipase 141 U/L (73-393) Current Medications Medications (Trade) Dose Ordered Sig/Ben Route PRN Reason Start Time Stop Time Status Last Admin Dose Admin Acetaminophen (Tylenol) 650 mg Q4H PRN RECTAL FEVER 04/01/19 17:30 05/01/19 17:29 Dextrose (Dextrose 50%) 25 ml Q30M PRN IV Hypoglycemia 03/30/19 13:30 04/29/19 13:29 Dextrose (Dextrose 50%) 50 ml Q30M PRN IV Hypoglycemia 03/30/19 13:30 04/29/19 13:29 Dextrose/ Electrolytes 1,000 ml @ 100 mls/hr Q10H IV 04/01/19 19:00 05/01/19 18:59 04/01/19 20:30 Heparin Sodium (Porcine) (Heparin 5000 units/ml) 5,000 units EVERY 12 HOURS SUBQ 03/30/19 09:00 04/29/19 08:59 04/02/19 09:06 Hydromorphone HCl (Dilaudid) 0.5 mg Q3H PRN IVP Pain Score 1-3 04/01/19 17:30 04/08/19 17:29 Hydromorphone HCl (Dilaudid) 1 mg Q3H PRN IVP pain score 4-6 04/01/19 17:30 04/08/19 17:29 04/02/19 04:12 Hydromorphone HCl (Dilaudid) 1 mg Q4H PRN IVP Severe Pain (Pain Scale 7-10) 03/31/19 13:00 04/07/19 12:59 04/02/19 00:45 Hydromorphone HCl (Dilaudid) 2 mg Q3H PRN IVP pain score 7-10 04/01/19 17:30 04/08/19 17:29 04/02/19 11:59 Insulin Aspart (NovoLOG) BEFORE MEALS AND HS SUBQ 03/30/19 13:15 04/29/19 13:14 04/02/19 12:05 Meloxicam (Mobic) 15 mg DAILY ORAL 03/30/19 09:00 04/29/19 08:59 04/02/19 09:03 Metoclopramide HCl (Reglan) 10 mg Q6H PRN IVP Nausea & Vomiting 04/01/19 17:30 05/01/19 17:29 Morphine Sulfate (Morphine Sulfate) 2 mg Q4H PRN IVP For Pain 03/30/19 07:45 04/06/19 07:44 04/01/19 08:29 Ondansetron HCl (Zofran) 4 mg Q6H PRN IVP Nausea & Vomiting 04/01/19 17:30 05/01/19 17:29 04/02/19 00:45 Pantoprazole (Protonix) 40 mg DAILY IVP 04/01/19 17:45 05/01/19 17:44 04/02/19 09:03 Piperacillin Sod/ Tazobactam Sod 3.375 gm/Sodium Chloride 110 ml @ 27.5 mls/hr EVERY 8 HOURS IVPB 04/01/19 14:30 04/06/19 14:29 04/02/19 06:25 Sucralfate (Carafate) 1 gm FOUR TIMES A DAY ORAL 03/30/19 13:00 04/29/19 12:59 04/02/19 09:03 Mita Bloom M.D. Apr 02, 2019 13:16
--- NOTE | 2019-04-02 13:28 | NUR ---
CASE MANAGEMENT: REVIEW 04/01/2019 SI:ACUTE CHOLECYSTITIS. T 97.5 HR 77 RR 18 B/P 122/77 SATS 98% ON 3L/NC WBC 17.1 K 3.2 GLU 170 CA 8.3 TBILI 1.5 DBILI 0.5 AST 73 ALT 415 ALP 161 LIPASE 438 IS:IVF @ 100 mL/HR ZOSYN IV Q8H MOBIC PO QD PROTONIX IV QD INSULIN ASPART SUBQ AC/HS CARAFATE PO QID MED/SURG STATUS PLAN OF CARE: DATE OF OPERATION: 04/01/2019 PREOPERATIVE DIAGNOSIS: Gallstone pancreatitis. POSTOPERATIVE DIAGNOSIS: Gallstone pancreatitis. OPERATION: Laparoscopic cholecystectomy. 04/02/2019 SI:ACUTE CHOLECYSTITIS. T 99.5 HR 97 RR 20 B/P 125/84 SATS 96% ON RA WBC 13.7GLU 191 CA 8 AST 118 ALT 261 ALP 125 LIPASE 141 IS:IVF @ 100 mL/HR ZOSYN IV Q8H MOBIC PO QD PROTONIX IV QD INSULIN ASPART SUBQ AC/HS CARAFATE PO QID MED/SURG STATUS PLAN OF CARE: POST OP CARE
--- NOTE | 2019-04-02 13:37 | NUR ---
INSURANCE CLINICALS AND REVIEWS FAXED TO NO [employer]IN[employer] DESIGNER ASSIGNED AT THIS TIME. PLEASE FAX THE REVIEW/CLINICAL P- [phone] F- [phone]...REVIEW/CLINICAL
--- NOTE | 2019-04-02 13:49 | General Progress Note ---
Assessment/Plan Status: unchanged Assessment/Plan: S: My stomach hurts O: Not in any distress because of pain. at the bed side PHYSICAL EXAMINATION: HEAD AND NECK: Atraumatic and normocephalic. CHEST: Clear to auscultation. HEART: S1 and S2. Regular rate and rhythm. ABDOMEN: Guarding, Sites of incisions on abdomen, are noted. Negative for rebound tenderness. MUSCULOSKELETAL: No gross focal motor deficit. NEUROLOGY: Awake, alert, oriented x3. LABORATORY AND DIAGNOSTIC DATA: Labs dated March 29, 2019 reviewed Abdominal MRI and Echo, both, dated March reviewed. ASSESSMENT AND PLAN: 1. Acute cholecystitis. 2. Acute biliary pancreatitis 2. Abnormal blood sugar. 3. Abnormal LFT. 4. GI and DVT prophylaxis. Plan: Post op D #1 NPO Pain management Improvement in lab indices Subjective Allergies: Coded Allergies: No Known Allergies (Unverified , 03/29/19) Objective Last 24 Hour Vital Signs Date Time Temp Pulse Resp B/P (MAP) Pulse Ox O2 Delivery O2 Flow Rate FiO2 04/02/19 12:00 98.6 92 20 124/89 (101) 98 04/02/19 09:00 Room Air 04/02/19 08:00 99.5 97 20 125/84 (98) 96 04/02/19 04:00 98.5 88 17 125/84 (98) 97 04/02/19 00:00 98.7 89 18 121/89 (100) 97 04/01/19 21:00 Room Air 04/01/19 20:00 97.5 77 18 122/77 (92) 98 04/01/19 18:45 99.4 82 18 109/74 (86) 96 04/01/19 18:30 99.0 83 16 113/76 98 Nasal Cannula 3 04/01/19 18:20 77 18 117/76 97 Nasal Cannula 3 04/01/19 18:10 83 18 105/69 97 Nasal Cannula 3 04/01/19 18:00 83 18 114/68 98 Nasal Cannula 3 04/01/19 17:55 83 20 112/69 98 Nasal Cannula 3 04/01/19 17:50 82 17 104/71 98 Simple Mask 6 04/01/19 17:45 84 15 112/72 97 Simple Mask 6 04/01/19 17:44 82 18 97 04/01/19 17:43 100.0 86 12 113/74 96 Simple Mask 6 04/01/19 17:43 84 16 94 Intake and Output 04/01/19 04/02/19 19:00 07:00 Intake Total 1025 ml Output Total 50 ml 1000 ml Balance 975 ml -1000 ml IV Total 1025 ml Output Urine Total 1000 ml Estimated Blood Loss 50 ml # Voids 2 2 Laboratory Tests 04/02/19 05:00: White Blood Count 13.7H, Red Blood Count 3.93L, Hemoglobin 12.4L, Hematocrit 36.9L, Mean Corpuscular Volume 94, Mean Corpuscular Hemoglobin 31.6H, Mean Corpuscular Hemoglobin Concent 33.7, Red Cell Distribution Width 11.0L, Platelet Count 178, Mean Platelet Volume 6.5, Neutrophils (%) (Auto) 77.8H, Lymphocytes (%) (Auto) 14.5L, Monocytes (%) (Auto) 7.1, Eosinophils (%) (Auto) 0.4, Basophils (%) (Auto) 0.4, Sodium Level 139, Potassium Level 3.5, Chloride Level 106, Carbon Dioxide Level 27, Anion Gap 6, Blood Urea Nitrogen 13, Creatinine 0.9, Estimat Glomerular Filtration Rate > 60, Glucose Level 191H, Calcium Level 8.0L, Total Bilirubin 1.0, Aspartate Amino Transf (AST/SGOT) 118H , Alanine Aminotransferase (ALT/SGPT) 261H, Alkaline Phosphatase 125H, Total Protein 6.3L, Albumin 2.8L, Globulin 3.5, Albumin/Globulin Ratio 0.8L, Amylase Level 53, Lipase 141 Height (Feet): 5 Height (Inches): 8.00 Weight (Pounds): 160 Johnson Duenas MD Apr 02, 2019 13:49
--- NOTE | 2019-04-02 15:44 | General Surgery Progress Note ---
General Surgery-Progress Note Subjective Symptoms: BM Additional Comments c/o pain at epigastrium Objective Last 24 Hour Vital Signs Date Time Temp Pulse Resp B/P (MAP) Pulse Ox O2 Delivery O2 Flow Rate FiO2 04/02/19 12:00 98.6 92 20 124/89 (101) 98 04/02/19 09:00 Room Air 04/02/19 08:00 99.5 97 20 125/84 (98) 96 04/02/19 04:00 98.5 88 17 125/84 (98) 97 04/02/19 00:00 98.7 89 18 121/89 (100) 97 04/01/19 21:00 Room Air 04/01/19 20:00 97.5 77 18 122/77 (92) 98 04/01/19 18:45 99.4 82 18 109/74 (86) 96 04/01/19 18:30 99.0 83 16 113/76 98 Nasal Cannula 3 04/01/19 18:20 77 18 117/76 97 Nasal Cannula 3 04/01/19 18:10 83 18 105/69 97 Nasal Cannula 3 04/01/19 18:00 83 18 114/68 98 Nasal Cannula 3 04/01/19 17:55 83 20 112/69 98 Nasal Cannula 3 04/01/19 17:50 82 17 104/71 98 Simple Mask 6 04/01/19 17:45 84 15 112/72 97 Simple Mask 6 04/01/19 17:44 82 18 97 04/01/19 17:43 100.0 86 12 113/74 96 Simple Mask 6 04/01/19 17:43 84 16 94 I&O Intake and Output 04/01/19 04/02/19 18:59 06:59 Intake Total 1025 ml Output Total 50 ml 1000 ml Balance 975 ml -1000 ml IV Total 1025 ml Output Urine Total 1000 ml Estimated Blood Loss 50 ml # Voids 2 2 Dressing: bloody Respiratory: clear Abdomen: distended, tenderness, decreased bowel sounds Extremities: no tenderness Laboratory Tests Test 04/02/19 05:00 White Blood Count 13.7 K/UL (4.8-10.8) H Red Blood Count 3.93 M/UL (4.70-6.10) L Hemoglobin 12.4 G/DL (14.2-18.0) L Hematocrit 36.9 % (42.0-52.0) L Mean Corpuscular Volume 94 FL (80-99) Mean Corpuscular Hemoglobin 31.6 PG (27.0-31.0) H Mean Corpuscular Hemoglobin Concent 33.7 G/DL (32.0-36.0) Red Cell Distribution Width 11.0 % (11.6-14.8) L Platelet Count 178 K/UL (150-450) Mean Platelet Volume 6.5 FL (6.5-10.1) Neutrophils (%) (Auto) 77.8 % (45.0-75.0) H Lymphocytes (%) (Auto) 14.5 % (20.0-45.0) L Monocytes (%) (Auto) 7.1 % (1.0-10.0) Eosinophils (%) (Auto) 0.4 % (0.0-3.0) Basophils (%) (Auto) 0.4 % (0.0-2.0) Sodium Level 139 MMOL/L (136-145) Potassium Level 3.5 MMOL/L (3.5-5.1) Chloride Level 106 MMOL/L (98-107) Carbon Dioxide Level 27 MMOL/L (21-32) Anion Gap 6 mmol/L (5-15) Blood Urea Nitrogen 13 mg/dL (7-18) Creatinine 0.9 MG/DL (0.55-1.30) Estimat Glomerular Filtration Rate > 60 mL/min (>60) Glucose Level 191 MG/DL (74-106) H Calcium Level 8.0 MG/DL (8.5-10.1) L Total Bilirubin 1.0 MG/DL (0.2-1.0) Aspartate Amino Transf (AST/SGOT) 118 U/L (15-37) H Alanine Aminotransferase (ALT/SGPT) 261 U/L (12-78) H Alkaline Phosphatase 125 U/L (46-116) H Total Protein 6.3 G/DL (6.4-8.2) L Albumin 2.8 G/DL (3.4-5.0) L Globulin 3.5 g/dL Albumin/Globulin Ratio 0.8 (1.0-2.7) L Amylase Level 53 U/L (25-115) Lipase 141 U/L (73-393) Assessment Additional Comments Gallstone pancreatitis Plan Additional Comments clear liquid diet Ofe Salomon MD Apr 02, 2019 15:44
--- NOTE | 2019-04-02 15:45 | NUR ---
NURSE NOTES: Spoke to regarding patient and new order received. Order read back and carried out.
[2019-04-02 16:00] VITALS: BP 129/88
--- NOTE | 2019-04-02 19:30 | NUR ---
HAND-OFF: Report given to Berry SU. Patient in stable condition.
--- NOTE | 2019-04-02 19:34 | NUR ---
NURSE NOTES: Report taken from GEORGES Montemayor. patient is asleep and in bed, arousable by name. A&Ox4. No signs of distress on 2L NC, monitor patient post dilaudid administration, Sim endorsed that patient may desat after administration. Having pain at incision sites and intraabdominal 5/10. Surgical site dry and intact, some staining present, MD aware. Able to ambulate with assistance, told patient to contact RN when he wants to get out of bed for safety. Bed in lowest position, call light within reach.
[2019-04-02 20:00] VITALS: BP 143/80
[2019-04-03] VITALS: BP 129/80
[2019-04-03 04:00] VITALS: BP 133/82
[2019-04-03] MEDS: Piperacillin/Tazobactam 3.375 GM in NS 110 ML IVPB SCH ×3 (06:03→22:00)
[2019-04-03] MEDS: D5 1/2NS w/KCl 20mEq 1,000 ML IV SCH ×3 (06:04→21:00)
[2019-04-03] MEDS: NovoLOG Insulin Flexpen SUBQ SCH ×4 (06:17→21:36)
[2019-04-03 06:28] LABS: BASOPHILS % (AUTO) 0.4 % (0.0-2.0); EOSINOPHILS % (AUTO) 0.9 % (0.0-3.0); HEMATOCRIT 36.7 % (42.0-52.0); HEMOGLOBIN 12.3 G/DL (14.2-18.0); LYMPHOCYTES % (AUTO) 17.3 % (20.0-45.0); MEAN CORPUSCULAR VOLUME 94 FL (80-99); MONOCYTES % (AUTO) 9.2 % (1.0-10.0); NEUTROPHILS % (AUTO) 72.2 % (45.0-75.0); PLATELET COUNT 218 K/UL (150-450); RED CELL DISTRIBUTION WIDTH 11.1 % (11.6-14.8); WHITE BLOOD COUNT 13.4 K/UL (4.8-10.8)
[2019-04-03 06:37] LABS: ALANINE AMINOTRANSFERASE 218 U/L (12-78); ALBUMIN 3.3 G/DL (3.4-5.0); ALKALINE PHOSPHATASE 118 U/L (46-116); ANION GAP 9 mmol/L (5-15); ASPARTATE AMINO TRANSFERASE 87 U/L (15-37); BILIRUBIN,TOTAL 0.7 MG/DL (0.2-1.0); BLOOD UREA NITROGEN 11 mg/dL (7-18); CALCIUM 8.4 MG/DL (8.5-10.1); CARBON DIOXIDE 27 MMOL/L (21-32); CHLORIDE 100 MMOL/L (98-107); POTASSIUM 3.6 MMOL/L (3.5-5.1); SODIUM 136 MMOL/L (136-145)
--- NOTE | 2019-04-03 07:10 | NUR ---
HAND-OFF: Report given to GEORGES Montemayor. Patient is asleep, VS stable.
--- NOTE | 2019-04-03 07:15 | NUR ---
NURSE NOTES: Patient lying in bed awake. Complain of pain 6/10 on surgical site and pain medication given by package collector nurse. Will continue to monitor. Surgical dressing stained and will continue to monitor. IV dressing intact and dry. Bed lowest position. Call light within reach. Will continue to monitor.
[2019-04-03 08:00] VITALS: BP 131/83
[2019-04-03] MEDS: Meloxicam 15 MG TAB ORAL SCH (09:01)
[2019-04-03] MEDS: Pantoprazole Inj IVP SCH (09:01)
[2019-04-03] MEDS: Sucralfate 1gm tab ORAL SCH ×4 (09:01→21:30)
[2019-04-03] MEDS: Heparin 5000 units/ml inj SUBQ SCH ×2 (09:08→21:33)
--- NOTE | 2019-04-03 10:17 | GI Progress Note ---
Assessment/Plan Problems: (1) Cholelithiasis ICD Codes: K80.20 - Calculus of gallbladder without cholecystitis without obstruction SNOMED: 569822406 Qualifiers: Qualified Codes: K80.00 - Calculus of gallbladder with acute cholecystitis without obstruction (2) Elevated transaminase level ICD Codes: R74.0 - Nonspecific elevation of levels of transaminase and lactic acid dehydrogenase [LDH] SNOMED: 185397405, 762412411 (3) Pancreatitis ICD Codes: K85.90 - Acute pancreatitis without necrosis or infection, unspecified SNOMED: 45277755 (4) Cholecystitis ICD Codes: K81.9 - Cholecystitis, unspecified SNOMED: 94566996 (5) Postoperative ileus ICD Codes: K91.89 - Other postprocedural complications and disorders of digestive system; K56.7 - Ileus, unspecified SNOMED: 793065089 Status: progressing Status Narrative Discussed with Dr. Leahy Assessment/Plan Status post laparoscopic cholecystectomy on follow-up surgical recommendations Abdominal MRI negative, hold ERCP plans Obtain KUB for abdominal distention, noted with postoperative ileus Diet per surgery Encourage ambulation and use of incentive spirometer PPI Pain management Zofran as needed Follow labs The patient was seen and examined at bedside and all new and available data was reviewed in the patients chart. I agree with the above findings, impression and plan. (Patient seen earlier today. Signature stamp does not reflect patient encounter time.). - Stanley Leahy MD Subjective Subjective Continues to complain of severe abdominal pain Abdominal bloating and distention Patient able to pass gas Last bowel movement prior to surgery Objective Last 24 Hour Vital Signs Date Time Temp Pulse Resp B/P (MAP) Pulse Ox O2 Delivery O2 Flow Rate FiO2 04/03/19 09:00 Room Air 04/03/19 08:00 100.2 103 20 131/83 (99) 98 04/03/19 04:00 99.4 96 18 133/82 (99) 97 04/03/19 00:00 100.1 98 18 129/80 (96) 97 04/02/19 21:00 Room Air 04/02/19 20:00 99.3 98 18 143/80 (101) 98 04/02/19 16:00 98.2 102 20 129/88 (102) 98 04/02/19 12:00 98.6 92 20 124/89 (101) 98 Intake and Output 04/02/19 04/03/19 19:00 07:00 Intake Total 300 ml 325 ml Balance 300 ml 325 ml Intake Oral 300 ml 325 ml # Voids 4 3 Laboratory Tests Test 04/03/19 05:10 White Blood Count 13.4 K/UL (4.8-10.8) H Red Blood Count 3.90 M/UL (4.70-6.10) L Hemoglobin 12.3 G/DL (14.2-18.0) L Hematocrit 36.7 % (42.0-52.0) L Mean Corpuscular Volume 94 FL (80-99) Mean Corpuscular Hemoglobin 31.5 PG (27.0-31.0) H Mean Corpuscular Hemoglobin Concent 33.4 G/DL (32.0-36.0) Red Cell Distribution Width 11.1 % (11.6-14.8) L Platelet Count 218 K/UL (150-450) Mean Platelet Volume 6.2 FL (6.5-10.1) L Neutrophils (%) (Auto) 72.2 % (45.0-75.0) Lymphocytes (%) (Auto) 17.3 % (20.0-45.0) L Monocytes (%) (Auto) 9.2 % (1.0-10.0) Eosinophils (%) (Auto) 0.9 % (0.0-3.0) Basophils (%) (Auto) 0.4 % (0.0-2.0) Sodium Level 136 MMOL/L (136-145) Potassium Level 3.6 MMOL/L (3.5-5.1) Chloride Level 100 MMOL/L (98-107) Carbon Dioxide Level 27 MMOL/L (21-32) Anion Gap 9 mmol/L (5-15) Blood Urea Nitrogen 11 mg/dL (7-18) Creatinine 1.0 MG/DL (0.55-1.30) Estimat Glomerular Filtration Rate > 60 mL/min (>60) Glucose Level 185 MG/DL (74-106) H Calcium Level 8.4 MG/DL (8.5-10.1) L Total Bilirubin 0.7 MG/DL (0.2-1.0) Aspartate Amino Transf (AST/SGOT) 87 U/L (15-37) H Alanine Aminotransferase (ALT/SGPT) 218 U/L (12-78) H Alkaline Phosphatase 118 U/L (46-116) H Total Protein 6.7 G/DL (6.4-8.2) Albumin 3.3 G/DL (3.4-5.0) L Globulin 3.4 g/dL Albumin/Globulin Ratio 1.0 (1.0-2.7) Lipase 109 U/L (73-393) Height (Feet): 5 Height (Inches): 8.00 Weight (Pounds): 160 General Appearance: WD/WN, no apparent distress, alert Cardiovascular: normal rate Respiratory/Chest: normal breath sounds, no respiratory distress Abdominal Exam: normal bowel sounds, non tender, soft, incision site Extremities: normal range of motion, non-tender Mushtaq Lynne NP Apr 03, 2019 10:17
--- NOTE | 2019-04-03 11:37 | General Progress Note ---
Assessment/Plan Status: progressing Assessment/Plan: S: My stomach hurts O: persistent mild pain in abdominen PHYSICAL EXAMINATION: HEAD AND NECK: Atraumatic and normocephalic. CHEST: Clear to auscultation. HEART: S1 and S2. Regular rate and rhythm. ABDOMEN: Guarding, Sites of incisions on abdomen, are noted. Negative for rebound tenderness. MUSCULOSKELETAL: No gross focal motor deficit. NEUROLOGY: Awake, alert, oriented x3. LABORATORY AND DIAGNOSTIC DATA: Labs dated April 03, 2019 reviewed Abdominal MRI and Echo, both, dated March reviewed. ASSESSMENT AND PLAN: 1. Acute cholecystitis. Post Operation 2. Acute biliary pancreatitis 2. Abnormal blood sugar. 3. Abnormal LFT. 4. GI and DVT prophylaxis. Plan: Post op D #2 clear liquid diet notes from Surgeon reviewed Pain management continued Improvement in lab indices Subjective Allergies: Coded Allergies: No Known Allergies (Unverified , 03/29/19) Objective Last 24 Hour Vital Signs Date Time Temp Pulse Resp B/P (MAP) Pulse Ox O2 Delivery O2 Flow Rate FiO2 04/03/19 09:00 Room Air 04/03/19 08:00 100.2 103 20 131/83 (99) 98 04/03/19 04:00 99.4 96 18 133/82 (99) 97 04/03/19 00:00 100.1 98 18 129/80 (96) 97 04/02/19 21:00 Room Air 04/02/19 20:00 99.3 98 18 143/80 (101) 98 04/02/19 16:00 98.2 102 20 129/88 (102) 98 04/02/19 12:00 98.6 92 20 124/89 (101) 98 Intake and Output 04/02/19 04/03/19 19:00 07:00 Intake Total 300 ml 325 ml Balance 300 ml 325 ml Intake Oral 300 ml 325 ml # Voids 4 3 Laboratory Tests 04/03/19 05:10: White Blood Count 13.4H, Red Blood Count 3.90L, Hemoglobin 12.3L, Hematocrit 36.7L, Mean Corpuscular Volume 94, Mean Corpuscular Hemoglobin 31.5H, Mean Corpuscular Hemoglobin Concent 33.4, Red Cell Distribution Width 11.1L, Platelet Count 218, Mean Platelet Volume 6.2L, Neutrophils (%) (Auto) 72.2, Lymphocytes (%) (Auto) 17.3L, Monocytes (%) (Auto) 9.2, Eosinophils (%) (Auto) 0.9, Basophils (%) (Auto) 0.4, Sodium Level 136, Potassium Level 3.6, Chloride Level 100, Carbon Dioxide Level 27, Anion Gap 9, Blood Urea Nitrogen 11, Creatinine 1.0, Estimat Glomerular Filtration Rate > 60, Glucose Level 185H, Calcium Level 8.4L, Total Bilirubin 0.7, Aspartate Amino Transf (AST/SGOT) 87H, Alanine Aminotransferase (ALT/SGPT) 218H, Alkaline Phosphatase 118H, Total Protein 6.7, Albumin 3.3L, Globulin 3.4, Albumin/Globulin Ratio 1.0, Lipase 109 Height (Feet): 5 Height (Inches): 8.00 Weight (Pounds): 160 Johnson Duenas MD Apr 03, 2019 11:37
[2019-04-03 12:00] VITALS: BP 128/79
--- NOTE | 2019-04-03 13:03 | NUR ---
CASE MANAGEMENT: REVIEW 04/03/2019 SI:ACUTE CHOLECYSTITIS. POD #2 Laparoscopic cholecystectomy. T 100.2 HR 103 RR 20 B/P 131/83 SATS 98% ON RA WBC 13.4 GLU 185 CA 8.4 AST 87 ALT 218 ALP 118 IS:IVF @ 100 mL/HR ZOSYN IV Q8H MOBIC PO QD PROTONIX IV QD INSULIN ASPART SUBQ AC/HS CARAFATE PO QID MED/SURG STATUS PLAN OF CARE: POST OP CARE CLD
--- NOTE | 2019-04-03 13:06 | NUR ---
INSURANCE CLINICALS AND REVIEWS FAXED TO NO PHOTOGRAMMETRIC COMPILATION SPECIALIST ASSIGNED AT THIS TIME. PLEASE FAX THE REVIEW/CLINICAL P- [phone] F- [phone]...REVIEW/CLINICAL & [facility] T: [phone] x [phone] F: [phone]
--- NOTE | 2019-04-03 14:17 | Infectious Diseases Prog Note ---
Assessment/Plan Problems: (1) Cholelithiasis Assessment & Plan: with cholecystitis and persistent pain with increasing wbc , will extend zosyn treatment since febrile today with possible phlegmonous pancreatitis as per D/W Dr Hurst , S/P cholecystectomy by surgery (2) Elevated transaminase level Assessment & Plan: suspect due to the above , screening for hepatitis is negative , close monitor of liver function (3) Cholecystitis Assessment & Plan: with pain and elevated transaminase , S/P LAP LEONARD , continue antibiotics for now since febrile after surgical resection . surgery is following (4) Fever Assessment & Plan: suspect post OP , monitor clinically, continue zosyn Subjective Constitutional: Reports: fever, anorexia HEENT: Reports: no symptoms Respiratory: Reports: no symptoms Breasts: Reports: no symptoms Cardiovascular: Reports: no symptoms Gastrointestinal/Abdominal: Reports: nausea, constipation, bloating Genitourinary: Reports: no symptoms Neurologic: Reports: no symptoms Psychiatric: Reports: no symptoms Skin: Reports: no symptoms Endocrine: Reports: no symptoms Hematologic: Reports: no symptoms Musculoskeletal: Reports: no symptoms Allergies: Coded Allergies: No Known Allergies (Unverified , 03/29/19) Objective Vital Signs Last 24 Hour Vital Signs Date Time Temp Pulse Resp B/P (MAP) Pulse Ox O2 Delivery O2 Flow Rate FiO2 04/03/19 12:00 99.0 92 18 128/79 (95) 100 04/03/19 09:00 Room Air 04/03/19 08:00 100.2 103 20 131/83 (99) 98 04/03/19 04:00 99.4 96 18 133/82 (99) 97 04/03/19 00:00 100.1 98 18 129/80 (96) 97 04/02/19 21:00 Room Air 04/02/19 20:00 99.3 98 18 143/80 (101) 98 04/02/19 16:00 98.2 102 20 129/88 (102) 98 Height (Feet): 5 Height (Inches): 8.00 Weight (Pounds): 160 General Appearance: WD/WN, no acute distress HEENT: normocephalic, atraumatic, anicteric, mucous membranes moist, PERRL Respiratory/Chest: chest wall non-tender, lungs clear, normal breath sounds, no respiratory distress, no accessory muscle use Cardiovascular: normal peripheral pulses, normal rate, regular rhythm, no gallop/murmur, no JVD Abdomen: normal bowel sounds, soft, non tender, no organomegaly, non distended , no mass, no scars Genitourinary: normal external genitalia Extremities: no cyanosis, no clubbing Skin: no rash, no lesions, no ulcers Neurologic/Psychiatric: corn breeder II-XII grossly normal, no motor/sensory deficits, alert, responsive Lymphatic: no neck adenopathy, no groin adenopathy Musculoskeletal: normal muscle bulk, no effusion Laboratory Tests Test 04/03/19 05:10 White Blood Count 13.4 K/UL (4.8-10.8) H Red Blood Count 3.90 M/UL (4.70-6.10) L Hemoglobin 12.3 G/DL (14.2-18.0) L Hematocrit 36.7 % (42.0-52.0) L Mean Corpuscular Volume 94 FL (80-99) Mean Corpuscular Hemoglobin 31.5 PG (27.0-31.0) H Mean Corpuscular Hemoglobin Concent 33.4 G/DL (32.0-36.0) Red Cell Distribution Width 11.1 % (11.6-14.8) L Platelet Count 218 K/UL (150-450) Mean Platelet Volume 6.2 FL (6.5-10.1) L Neutrophils (%) (Auto) 72.2 % (45.0-75.0) Lymphocytes (%) (Auto) 17.3 % (20.0-45.0) L Monocytes (%) (Auto) 9.2 % (1.0-10.0) Eosinophils (%) (Auto) 0.9 % (0.0-3.0) Basophils (%) (Auto) 0.4 % (0.0-2.0) Sodium Level 136 MMOL/L (136-145) Potassium Level 3.6 MMOL/L (3.5-5.1) Chloride Level 100 MMOL/L (98-107) Carbon Dioxide Level 27 MMOL/L (21-32) Anion Gap 9 mmol/L (5-15) Blood Urea Nitrogen 11 mg/dL (7-18) Creatinine 1.0 MG/DL (0.55-1.30) Estimat Glomerular Filtration Rate > 60 mL/min (>60) Glucose Level 185 MG/DL (74-106) H Calcium Level 8.4 MG/DL (8.5-10.1) L Total Bilirubin 0.7 MG/DL (0.2-1.0) Aspartate Amino Transf (AST/SGOT) 87 U/L (15-37) H Alanine Aminotransferase (ALT/SGPT) 218 U/L (12-78) H Alkaline Phosphatase 118 U/L (46-116) H Total Protein 6.7 G/DL (6.4-8.2) Albumin 3.3 G/DL (3.4-5.0) L Globulin 3.4 g/dL Albumin/Globulin Ratio 1.0 (1.0-2.7) Lipase 109 U/L (73-393) Current Medications Medications (Trade) Dose Ordered Sig/Ben Route PRN Reason Start Time Stop Time Status Last Admin Dose Admin Acetaminophen (Tylenol) 650 mg Q4H PRN RECTAL FEVER 04/01/19 17:30 05/01/19 17:29 Dextrose (Dextrose 50%) 25 ml Q30M PRN IV Hypoglycemia 03/30/19 13:30 04/29/19 13:29 Dextrose (Dextrose 50%) 50 ml Q30M PRN IV Hypoglycemia 03/30/19 13:30 04/29/19 13:29 Dextrose/ Electrolytes 1,000 ml @ 100 mls/hr Q10H IV 04/01/19 19:00 05/01/19 18:59 04/03/19 11:26 Heparin Sodium (Porcine) (Heparin 5000 units/ml) 5,000 units EVERY 12 HOURS SUBQ 03/30/19 09:00 04/29/19 08:59 04/03/19 09:08 Hydromorphone HCl (Dilaudid) 0.5 mg Q3H PRN IVP Pain Score 1-3 04/01/19 17:30 04/08/19 17:29 Hydromorphone HCl (Dilaudid) 1 mg Q3H PRN IVP pain score 4-6 04/01/19 17:30 04/08/19 17:29 04/02/19 04:12 Hydromorphone HCl (Dilaudid) 1 mg Q4H PRN IVP Severe Pain (Pain Scale 7-10) 03/31/19 13:00 04/07/19 12:59 04/02/19 00:45 Hydromorphone HCl (Dilaudid) 2 mg Q3H PRN IVP pain score 7-10 04/01/19 17:30 04/08/19 17:29 04/03/19 11:27 Insulin Aspart (NovoLOG) BEFORE MEALS AND HS SUBQ 03/30/19 13:15 04/29/19 13:14 04/03/19 11:36 Meloxicam (Mobic) 15 mg DAILY ORAL 03/30/19 09:00 04/29/19 08:59 04/03/19 09:01 Metoclopramide HCl (Reglan) 10 mg Q6H PRN IVP Nausea & Vomiting 04/01/19 17:30 05/01/19 17:29 Morphine Sulfate (Morphine Sulfate) 2 mg Q4H PRN IVP For Pain 03/30/19 07:45 04/06/19 07:44 04/01/19 08:29 Ondansetron HCl (Zofran) 4 mg Q6H PRN IVP Nausea & Vomiting 04/01/19 17:30 05/01/19 17:29 04/02/19 00:45 Pantoprazole (Protonix) 40 mg DAILY IVP 04/01/19 17:45 05/01/19 17:44 04/03/19 09:01 Piperacillin Sod/ Tazobactam Sod 3.375 gm/Sodium Chloride 110 ml @ 27.5 mls/hr EVERY 8 HOURS IVPB 04/01/19 14:30 04/06/19 14:29 04/03/19 13:17 Sucralfate (Carafate) 1 gm FOUR TIMES A DAY ORAL 03/30/19 13:00 04/29/19 12:59 04/03/19 13:17 Mita Bloom M.D. Apr 03, 2019 14:17
--- NOTE | 2019-04-03 14:38 | General Surgery Progress Note ---
General Surgery-Progress Note Subjective Symptoms: improved, BM Objective Last 24 Hour Vital Signs Date Time Temp Pulse Resp B/P (MAP) Pulse Ox O2 Delivery O2 Flow Rate FiO2 04/03/19 12:00 99.0 92 18 128/79 (95) 100 04/03/19 09:00 Room Air 04/03/19 08:00 100.2 103 20 131/83 (99) 98 04/03/19 04:00 99.4 96 18 133/82 (99) 97 04/03/19 00:00 100.1 98 18 129/80 (96) 97 04/02/19 21:00 Room Air 04/02/19 20:00 99.3 98 18 143/80 (101) 98 04/02/19 16:00 98.2 102 20 129/88 (102) 98 I&O Intake and Output 04/02/19 04/03/19 19:00 07:00 Intake Total 300 ml 325 ml Balance 300 ml 325 ml Intake Oral 300 ml 325 ml # Voids 4 3 Dressing: bloody Drains: none Respiratory: clear Abdomen: soft, tenderness, present bowel sounds Extremities: no tenderness Laboratory Tests Test 04/03/19 05:10 White Blood Count 13.4 K/UL (4.8-10.8) H Red Blood Count 3.90 M/UL (4.70-6.10) L Hemoglobin 12.3 G/DL (14.2-18.0) L Hematocrit 36.7 % (42.0-52.0) L Mean Corpuscular Volume 94 FL (80-99) Mean Corpuscular Hemoglobin 31.5 PG (27.0-31.0) H Mean Corpuscular Hemoglobin Concent 33.4 G/DL (32.0-36.0) Red Cell Distribution Width 11.1 % (11.6-14.8) L Platelet Count 218 K/UL (150-450) Mean Platelet Volume 6.2 FL (6.5-10.1) L Neutrophils (%) (Auto) 72.2 % (45.0-75.0) Lymphocytes (%) (Auto) 17.3 % (20.0-45.0) L Monocytes (%) (Auto) 9.2 % (1.0-10.0) Eosinophils (%) (Auto) 0.9 % (0.0-3.0) Basophils (%) (Auto) 0.4 % (0.0-2.0) Sodium Level 136 MMOL/L (136-145) Potassium Level 3.6 MMOL/L (3.5-5.1) Chloride Level 100 MMOL/L (98-107) Carbon Dioxide Level 27 MMOL/L (21-32) Anion Gap 9 mmol/L (5-15) Blood Urea Nitrogen 11 mg/dL (7-18) Creatinine 1.0 MG/DL (0.55-1.30) Estimat Glomerular Filtration Rate > 60 mL/min (>60) Glucose Level 185 MG/DL (74-106) H Calcium Level 8.4 MG/DL (8.5-10.1) L Total Bilirubin 0.7 MG/DL (0.2-1.0) Aspartate Amino Transf (AST/SGOT) 87 U/L (15-37) H Alanine Aminotransferase (ALT/SGPT) 218 U/L (12-78) H Alkaline Phosphatase 118 U/L (46-116) H Total Protein 6.7 G/DL (6.4-8.2) Albumin 3.3 G/DL (3.4-5.0) L Globulin 3.4 g/dL Albumin/Globulin Ratio 1.0 (1.0-2.7) Lipase 109 U/L (73-393) Assessment Additional Comments S/P Gallstone pancreatitis Plan Additional Comments continue as before Ofe Salomon MD Apr 03, 2019 14:38
--- NOTE | 2019-04-03 15:50 | NUR ---
NURSE NOTES: Patient ambulated hallway with assist. No complain of dizziness. Patient tolerated activity well. Will continue to monitor.
[2019-04-03 16:00] VITALS: BP 124/85
--- NOTE | 2019-04-03 19:30 | NUR ---
HAND-OFF: Report given to Rafiq SU. Patient in stable condition.
--- NOTE | 2019-04-03 19:45 | NUR ---
NURSE NOTES: Received report from GEORGES Montemayor and rounds made. Received pt laying in bed, AOX4, pain level 3/10, no distress noted. Surgical dressing C/D/I stained with 4 lapsites. IV L wrist #20 and R AC #20 patent and intact. IV fluid infusing as ordered. Bed in lowest position and locked, side rails up x 2, call light within reach. Will continue to monitor.
[2019-04-03 20:00] VITALS: BP 134/90
[2019-04-04] VITALS: BP 131/84
[2019-04-04 04:00] VITALS: BP 146/79
[2019-04-04] MEDS: Piperacillin/Tazobactam 3.375 GM in NS 110 ML IVPB SCH ×3 (05:26→22:39)
[2019-04-04] MEDS: D5 1/2NS w/KCl 20mEq 1,000 ML IV SCH ×2 (06:41→16:56)
[2019-04-04] MEDS: NovoLOG Insulin Flexpen SUBQ SCH ×4 (06:41→21:04)
[2019-04-04 06:49] LABS: BASOPHILS % (AUTO) 0.8 % (0.0-2.0); EOSINOPHILS % (AUTO) 1.6 % (0.0-3.0); HEMATOCRIT 34.7 % (42.0-52.0); HEMOGLOBIN 11.7 G/DL (14.2-18.0); MEAN CORPUSCULAR VOLUME 93 FL (80-99); MONOCYTES % (AUTO) 8.6 % (1.0-10.0); PLATELET COUNT 210 K/UL (150-450); RED BLOOD COUNT 3.74 M/UL (4.70-6.10); WHITE BLOOD COUNT 12.9 K/UL (4.8-10.8)
[2019-04-04 07:06] LABS: ANION GAP 10 mmol/L (5-15); BLOOD UREA NITROGEN 6 mg/dL (7-18); CALCIUM 8.5 MG/DL (8.5-10.1); CARBON DIOXIDE 26 MMOL/L (21-32); CHLORIDE 101 MMOL/L (98-107); CREATININE 0.9 MG/DL (0.55-1.30); POTASSIUM 3.2 MMOL/L (3.5-5.1); SODIUM 137 MMOL/L (136-145)
--- NOTE | 2019-04-04 07:35 | NUR ---
HAND-OFF: Report given to GEORGES Garner. Pt in stable condition.
[2019-04-04 08:00] VITALS: BP 132/82
--- NOTE | 2019-04-04 08:08 | NUR ---
NURSE NOTES: Patient alert x4, on room air, no sign of distress and shortness of breath; no sign of chest pain; IV RAC [id number] running at 100cc; ABD incisions dry and intact; bed at lowest position, side rails up x2, breaks engaged; call light within reach; will keep monitoring.
[2019-04-04] MEDS: Pantoprazole Inj IVP SCH (08:27)
[2019-04-04] MEDS: Meloxicam 15 MG TAB ORAL SCH (08:27)
[2019-04-04] MEDS: Sucralfate 1gm tab ORAL SCH ×4 (08:27→20:53)
[2019-04-04] MEDS: Heparin 5000 units/ml inj SUBQ SCH ×2 (08:29→20:59)
--- NOTE | 2019-04-04 10:58 | GI Progress Note ---
Assessment/Plan Problems: (1) Cholelithiasis ICD Codes: K80.20 - Calculus of gallbladder without cholecystitis without obstruction SNOMED: 518584079 Qualifiers: Qualified Codes: K80.00 - Calculus of gallbladder with acute cholecystitis without obstruction (2) Elevated transaminase level ICD Codes: R74.0 - Nonspecific elevation of levels of transaminase and lactic acid dehydrogenase [LDH] SNOMED: 374331333, 753487651 (3) Pancreatitis ICD Codes: K85.90 - Acute pancreatitis without necrosis or infection, unspecified SNOMED: 69516173 (4) Cholecystitis ICD Codes: K81.9 - Cholecystitis, unspecified SNOMED: 35566222 (5) Postoperative ileus ICD Codes: K91.89 - Other postprocedural complications and disorders of digestive system; K56.7 - Ileus, unspecified SNOMED: 759895154 Status: progressing Status Narrative Discussed with Dr. Leahy. Assessment/Plan Status post laparoscopic cholecystectomy on follow-up surgical recommendations Abdominal MRI negative, hold ERCP plans post operative ileus Diet per surgery Encourage ambulation and use of incentive spirometer PPI Pain management Zofran as needed Follow labs The patient was seen and examined at bedside and all new and available data was reviewed in the patients chart. I agree with the above findings, impression and plan. (Patient seen earlier today. Signature stamp does not reflect patient encounter time.). - Stanley Leahy MD Subjective Subjective abdominal pain improved Abdominal bloating and distention improved Patient able to pass gas Last bowel movement prior to surgery Objective Last 24 Hour Vital Signs Date Time Temp Pulse Resp B/P (MAP) Pulse Ox O2 Delivery O2 Flow Rate FiO2 04/04/19 09:00 Room Air 04/04/19 08:00 99.2 94 20 132/82 (99) 95 04/04/19 04:00 97.7 95 19 146/79 (101) 97 04/04/19 00:00 98.6 89 20 131/84 (100) 96 04/03/19 21:00 Room Air 04/03/19 20:00 98.1 93 19 134/90 (105) 95 04/03/19 16:00 100.0 98 20 124/85 (98) 97 04/03/19 12:00 99.0 92 18 128/79 (95) 100 Intake and Output 04/03/19 04/04/19 19:00 07:00 Intake Total 100 ml 1377.5 ml Balance 100 ml 1377.5 ml Intake Oral 740 ml IV Total 100 ml 637.5 ml # Voids 3 3 Laboratory Tests Test 04/04/19 06:20 04/04/19 06:28 Hepatitis A IgM Antibody Pending Hepatitis B Surface Antigen Pending Hepatitis B Core IgM Antibody Pending Hepatitis C Antibody Pending White Blood Count 12.9 K/UL (4.8-10.8) H Red Blood Count 3.74 M/UL (4.70-6.10) L Hemoglobin 11.7 G/DL (14.2-18.0) L Hematocrit 34.7 % (42.0-52.0) L Mean Corpuscular Volume 93 FL (80-99) Mean Corpuscular Hemoglobin 31.3 PG (27.0-31.0) H Mean Corpuscular Hemoglobin Concent 33.8 G/DL (32.0-36.0) Red Cell Distribution Width 11.0 % (11.6-14.8) L Platelet Count 210 K/UL (150-450) Mean Platelet Volume 6.1 FL (6.5-10.1) L Neutrophils (%) (Auto) 71.0 % (45.0-75.0) Lymphocytes (%) (Auto) 18.0 % (20.0-45.0) L Monocytes (%) (Auto) 8.6 % (1.0-10.0) Eosinophils (%) (Auto) 1.6 % (0.0-3.0) Basophils (%) (Auto) 0.8 % (0.0-2.0) Sodium Level 137 MMOL/L (136-145) Potassium Level 3.2 MMOL/L (3.5-5.1) L Chloride Level 101 MMOL/L (98-107) Carbon Dioxide Level 26 MMOL/L (21-32) Anion Gap 10 mmol/L (5-15) Blood Urea Nitrogen 6 mg/dL (7-18) L Creatinine 0.9 MG/DL (0.55-1.30) Estimat Glomerular Filtration Rate > 60 mL/min (>60) Glucose Level 161 MG/DL (74-106) H Calcium Level 8.5 MG/DL (8.5-10.1) Height (Feet): 5 Height (Inches): 8.00 Weight (Pounds): 160 General Appearance: WD/WN, no apparent distress, alert Cardiovascular: normal rate Respiratory/Chest: normal breath sounds, no respiratory distress Abdominal Exam: normal bowel sounds, non tender, soft Extremities: normal range of motion, non-tender Mushtaq Lynne NP Apr 04, 2019 10:58
[2019-04-04 12:00] VITALS: BP 140/93
--- NOTE | 2019-04-04 13:45 | General Progress Note ---
Assessment/Plan Status: progressing Assessment/Plan: S: My stomach hurts O: significant improvement in pain in abdomen PHYSICAL EXAMINATION: HEAD AND NECK: Atraumatic and normocephalic. CHEST: Clear to auscultation. HEART: S1 and S2. Regular rate and rhythm. ABDOMEN: No Guarding, Sites of incisions on abdomen are noted and clean. Negative for rebound tenderness. MUSCULOSKELETAL: No gross focal motor deficit. NEUROLOGY: Awake, alert, oriented x3. LABORATORY AND DIAGNOSTIC DATA: Labs dated April 03, 2019 reviewed Abdominal MRI and Echo, both, dated March reviewed. ASSESSMENT AND PLAN: 1. Acute cholecystitis. Post Operation 2. Acute biliary pancreatitis 2. Abnormal blood sugar. 3. Abnormal LFT. 4. GI and DVT prophylaxis. Plan: Post op D #4 clear liquid diet notes from Surgeon reviewed Pain management continued Improvement in lab indices and clinical pictures Subjective Allergies: Coded Allergies: No Known Allergies (Unverified , 03/29/19) Objective Last 24 Hour Vital Signs Date Time Temp Pulse Resp B/P (MAP) Pulse Ox O2 Delivery O2 Flow Rate FiO2 04/04/19 12:00 98.7 96 20 140/93 (109) 97 04/04/19 09:00 Room Air 04/04/19 08:59 99.2 04/04/19 08:00 99.2 94 20 132/82 (99) 95 04/04/19 04:00 97.7 95 19 146/79 (101) 97 04/04/19 00:00 98.6 89 20 131/84 (100) 96 04/03/19 21:00 Room Air 04/03/19 20:00 98.1 93 19 134/90 (105) 95 04/03/19 16:00 100.0 98 20 124/85 (98) 97 Intake and Output 04/03/19 04/04/19 19:00 07:00 Intake Total 100 ml 1477.5 ml Balance 100 ml 1477.5 ml Intake Oral 740 ml IV Total 100 ml 737.5 ml # Voids 3 3 Laboratory Tests 04/04/19 06:20: Hepatitis A IgM Antibody [Pending], Hepatitis B Surface Antigen [Pending], Hepatitis B Core IgM Antibody [Pending], Hepatitis C Antibody [Pending] 04/04/19 06:28: White Blood Count 12.9H, Red Blood Count 3.74L, Hemoglobin 11.7L, Hematocrit 34.7L, Mean Corpuscular Volume 93, Mean Corpuscular Hemoglobin 31.3H, Mean Corpuscular Hemoglobin Concent 33.8, Red Cell Distribution Width 11.0L, Platelet Count 210, Mean Platelet Volume 6.1L, Neutrophils (%) (Auto) 71.0, Lymphocytes (%) (Auto) 18.0L, Monocytes (%) (Auto) 8.6, Eosinophils (%) (Auto) 1.6, Basophils (%) (Auto) 0.8, Sodium Level 137, Potassium Level 3.2L, Chloride Level 101, Carbon Dioxide Level 26, Anion Gap 10, Blood Urea Nitrogen 6L, Creatinine 0.9, Estimat Glomerular Filtration Rate > 60, Glucose Level 161H, Calcium Level 8.5 Height (Feet): 5 Height (Inches): 8.00 Weight (Pounds): 160 Johnson Duenas MD Apr 04, 2019 13:45
--- NOTE | 2019-04-04 15:44 | General Surgery Progress Note ---
General Surgery-Progress Note Subjective Symptoms: improved, passing flatus Objective Last 24 Hour Vital Signs Date Time Temp Pulse Resp B/P (MAP) Pulse Ox O2 Delivery O2 Flow Rate FiO2 04/04/19 12:00 98.7 96 20 140/93 (109) 97 04/04/19 09:00 Room Air 04/04/19 08:59 99.2 04/04/19 08:00 99.2 94 20 132/82 (99) 95 04/04/19 04:00 97.7 95 19 146/79 (101) 97 04/04/19 00:00 98.6 89 20 131/84 (100) 96 04/03/19 21:00 Room Air 04/03/19 20:00 98.1 93 19 134/90 (105) 95 04/03/19 16:00 100.0 98 20 124/85 (98) 97 I&O Intake and Output 04/03/19 04/04/19 19:00 07:00 Intake Total 100 ml 1477.5 ml Balance 100 ml 1477.5 ml Intake Oral 740 ml IV Total 100 ml 737.5 ml # Voids 3 3 Wound: clean, intact Drains: gavin Respiratory: clear Abdomen: soft, flat, non-tender, present bowel sounds Extremities: no tenderness Laboratory Tests Test 04/04/19 06:20 04/04/19 06:28 Hepatitis A IgM Antibody Pending Hepatitis B Surface Antigen Pending Hepatitis B Core IgM Antibody Pending Hepatitis C Antibody Pending White Blood Count 12.9 K/UL (4.8-10.8) H Red Blood Count 3.74 M/UL (4.70-6.10) L Hemoglobin 11.7 G/DL (14.2-18.0) L Hematocrit 34.7 % (42.0-52.0) L Mean Corpuscular Volume 93 FL (80-99) Mean Corpuscular Hemoglobin 31.3 PG (27.0-31.0) H Mean Corpuscular Hemoglobin Concent 33.8 G/DL (32.0-36.0) Red Cell Distribution Width 11.0 % (11.6-14.8) L Platelet Count 210 K/UL (150-450) Mean Platelet Volume 6.1 FL (6.5-10.1) L Neutrophils (%) (Auto) 71.0 % (45.0-75.0) Lymphocytes (%) (Auto) 18.0 % (20.0-45.0) L Monocytes (%) (Auto) 8.6 % (1.0-10.0) Eosinophils (%) (Auto) 1.6 % (0.0-3.0) Basophils (%) (Auto) 0.8 % (0.0-2.0) Sodium Level 137 MMOL/L (136-145) Potassium Level 3.2 MMOL/L (3.5-5.1) L Chloride Level 101 MMOL/L (98-107) Carbon Dioxide Level 26 MMOL/L (21-32) Anion Gap 10 mmol/L (5-15) Blood Urea Nitrogen 6 mg/dL (7-18) L Creatinine 0.9 MG/DL (0.55-1.30) Estimat Glomerular Filtration Rate > 60 mL/min (>60) Glucose Level 161 MG/DL (74-106) H Calcium Level 8.5 MG/DL (8.5-10.1) Assessment Additional Comments S/P gallstone pancreatitis Plan Additional Comments diet possible discharge in AM Ofe Salomon MD Apr 04, 2019 15:44
[2019-04-04 16:00] VITALS: BP 128/80
[2019-04-04] MEDS: traMADol 50mg tab ORAL PRN ×2 (16:13→20:53)
--- NOTE | 2019-04-04 16:29 | Infectious Diseases Prog Note ---
Assessment/Plan Problems: (1) Cholelithiasis Assessment & Plan: with cholecystitis and persistent pain with increasing wbc , continue zosyn treatment since spiked fever with possible phlegmonous pancreatitis as per D/W Dr Hurst , S/P cholecystectomy by surgery (2) Elevated transaminase level Assessment & Plan: suspect due to the above , screening for hepatitis is negative , close monitor of liver function (3) Cholecystitis Assessment & Plan: with pain and elevated transaminase , S/P LAP LEONARD , continue antibiotics for now since febrile after surgical resection . surgery is following (4) Fever Assessment & Plan: suspect post OP , monitor clinically, continue zosyn Subjective Constitutional: Reports: no symptoms HEENT: Reports: no symptoms Respiratory: Reports: no symptoms Breasts: Reports: no symptoms Cardiovascular: Reports: no symptoms Gastrointestinal/Abdominal: Reports: constipation, bloating, other - epigastric discomfort Genitourinary: Reports: no symptoms Neurologic: Reports: no symptoms Psychiatric: Reports: no symptoms Skin: Reports: no symptoms Endocrine: Reports: no symptoms Hematologic: Reports: no symptoms Musculoskeletal: Reports: no symptoms Allergies: Coded Allergies: No Known Allergies (Unverified , 03/29/19) Objective Vital Signs Last 24 Hour Vital Signs Date Time Temp Pulse Resp B/P (MAP) Pulse Ox O2 Delivery O2 Flow Rate FiO2 04/04/19 12:00 98.7 96 20 140/93 (109) 97 04/04/19 09:00 Room Air 04/04/19 08:59 99.2 04/04/19 08:00 99.2 94 20 132/82 (99) 95 04/04/19 04:00 97.7 95 19 146/79 (101) 97 04/04/19 00:00 98.6 89 20 131/84 (100) 96 04/03/19 21:00 Room Air 04/03/19 20:00 98.1 93 19 134/90 (105) 95 Height (Feet): 5 Height (Inches): 8.00 Weight (Pounds): 160 General Appearance: WD/WN, no acute distress HEENT: normocephalic, atraumatic, anicteric, mucous membranes moist, PERRL Respiratory/Chest: chest wall non-tender, lungs clear, normal breath sounds, no respiratory distress, no accessory muscle use Cardiovascular: normal peripheral pulses, normal rate, regular rhythm, no gallop/murmur, no JVD Abdomen: no organomegaly, no mass, no scars, absent bowel sounds, distended, tender Genitourinary: normal external genitalia Extremities: no cyanosis, no clubbing Skin: no rash, no lesions, no ulcers Neurologic/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: 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, no motor/sensory deficits, alert Lymphatic: no neck adenopathy, no groin adenopathy Musculoskeletal: normal muscle bulk, no effusion Laboratory Tests Test 04/04/19 06:20 04/04/19 06:28 Hepatitis A IgM Antibody Pending Hepatitis B Surface Antigen Pending Hepatitis B Core IgM Antibody Pending Hepatitis C Antibody Pending White Blood Count 12.9 K/UL (4.8-10.8) H Red Blood Count 3.74 M/UL (4.70-6.10) L Hemoglobin 11.7 G/DL (14.2-18.0) L Hematocrit 34.7 % (42.0-52.0) L Mean Corpuscular Volume 93 FL (80-99) Mean Corpuscular Hemoglobin 31.3 PG (27.0-31.0) H Mean Corpuscular Hemoglobin Concent 33.8 G/DL (32.0-36.0) Red Cell Distribution Width 11.0 % (11.6-14.8) L Platelet Count 210 K/UL (150-450) Mean Platelet Volume 6.1 FL (6.5-10.1) L Neutrophils (%) (Auto) 71.0 % (45.0-75.0) Lymphocytes (%) (Auto) 18.0 % (20.0-45.0) L Monocytes (%) (Auto) 8.6 % (1.0-10.0) Eosinophils (%) (Auto) 1.6 % (0.0-3.0) Basophils (%) (Auto) 0.8 % (0.0-2.0) Sodium Level 137 MMOL/L (136-145) Potassium Level 3.2 MMOL/L (3.5-5.1) L Chloride Level 101 MMOL/L (98-107) Carbon Dioxide Level 26 MMOL/L (21-32) Anion Gap 10 mmol/L (5-15) Blood Urea Nitrogen 6 mg/dL (7-18) L Creatinine 0.9 MG/DL (0.55-1.30) Estimat Glomerular Filtration Rate > 60 mL/min (>60) Glucose Level 161 MG/DL (74-106) H Calcium Level 8.5 MG/DL (8.5-10.1) Current Medications Medications (Trade) Dose Ordered Sig/Ben Route PRN Reason Start Time Stop Time Status Last Admin Dose Admin Acetaminophen (Tylenol) 650 mg Q4H PRN RECTAL FEVER 04/01/19 17:30 05/01/19 17:29 Dextrose (Dextrose 50%) 25 ml Q30M PRN IV Hypoglycemia 03/30/19 13:30 04/29/19 13:29 Dextrose (Dextrose 50%) 50 ml Q30M PRN IV Hypoglycemia 03/30/19 13:30 04/29/19 13:29 Dextrose/ Electrolytes 1,000 ml @ 100 mls/hr Q10H IV 04/01/19 19:00 05/01/19 18:59 04/03/19 21:00 Heparin Sodium (Porcine) (Heparin 5000 units/ml) 5,000 units EVERY 12 HOURS SUBQ 03/30/19 09:00 04/29/19 08:59 04/04/19 08:29 Insulin Aspart (NovoLOG) BEFORE MEALS AND HS SUBQ 03/30/19 13:15 04/29/19 13:14 04/04/19 12:00 Meloxicam (Mobic) 15 mg DAILY ORAL 03/30/19 09:00 04/29/19 08:59 04/04/19 08:27 Ondansetron HCl (Zofran) 4 mg Q6H PRN IVP Nausea & Vomiting 04/01/19 17:30 05/01/19 17:29 04/02/19 00:45 Pantoprazole (Protonix) 40 mg DAILY IVP 04/01/19 17:45 05/01/19 17:44 04/04/19 08:27 Piperacillin Sod/ Tazobactam Sod 3.375 gm/Sodium Chloride 110 ml @ 27.5 mls/hr EVERY 8 HOURS IVPB 04/03/19 22:00 04/08/19 21:59 04/04/19 13:10 Sucralfate (Carafate) 1 gm FOUR TIMES A DAY ORAL 03/30/19 13:00 04/29/19 12:59 04/04/19 13:09 Tramadol HCl (Ultram) 50 mg Q4H PRN ORAL For Pain 04/04/19 16:00 04/11/19 15:59 04/04/19 16:13 Mita Bloom M.D. Apr 04, 2019 16:29
--- NOTE | 2019-04-04 17:49 | NUR ---
CASE MANAGEMENT: REVIEW 04/04/2019 SI:ACUTE CHOLECYSTITIS. POD #3 Laparoscopic cholecystectomy. T 99.2 HR 94 RR 20 B/P 132/82 SATS 95% ON RA WBC 12.9 K 3.2 BUN 6 GLU 161 IS:IVF @ 100 mL/HR ZOSYN IV Q8H MOBIC PO QD PROTONIX IV QD INSULIN ASPART SUBQ AC/HS CARAFATE PO QID MED/SURG STATUS PLAN OF CARE: POST OP CARE LOW FAT DIET POSSIBLE DC IN AM
[2019-04-04] MEDS ORDERED: Tubing IV Secondary IV ONE (19:26)
--- NOTE | 2019-04-04 19:45 | NUR ---
NURSE NOTES: Received patient from day nurse, patient in bed, alert and oriented x 4, PIV leaking, stopped IVF and will start new PIV.
--- NOTE | 2019-04-04 19:45 | NUR ---
HAND-OFF: Report given to GEORGES Pack.
[2019-04-04 20:00] VITALS: BP 142/93
--- NOTE | 2019-04-04 20:00 | NUR ---
NURSE NOTES: PIV #22 gauge inserted on left hand. D51/2NS with KCL 20MEQ restarted at 100ml/hr.
[2019-04-05] VITALS: BP 151/89
[2019-04-05] MEDS: traMADol 50mg tab ORAL PRN ×4 (01:39→22:09)
[2019-04-05] MEDS: D5 1/2NS w/KCl 20mEq 1,000 ML IV SCH ×3 (03:00→21:22)
[2019-04-05 04:00] VITALS: BP 144/90
[2019-04-05] MEDS: Piperacillin/Tazobactam 3.375 GM in NS 110 ML IVPB SCH ×3 (05:55→21:22)
[2019-04-05] MEDS: NovoLOG Insulin Flexpen SUBQ SCH ×4 (06:05→21:59)
[2019-04-05 07:03] LABS: BASOPHILS % (AUTO) 0.6 % (0.0-2.0); HEMATOCRIT 35.5 % (42.0-52.0); MEAN CORPUSCULAR VOLUME 93 FL (80-99); MONOCYTES % (AUTO) 7.9 % (1.0-10.0); NEUTROPHILS % (AUTO) 80.4 % (45.0-75.0); PLATELET COUNT 274 K/UL (150-450); RED BLOOD COUNT 3.81 M/UL (4.70-6.10); RED CELL DISTRIBUTION WIDTH 10.7 % (11.6-14.8); WHITE BLOOD COUNT 14.4 K/UL (4.8-10.8)
[2019-04-05 07:44] LABS: ALANINE AMINOTRANSFERASE 113 U/L (12-78); ALBUMIN 3.3 G/DL (3.4-5.0); ALBUMIN/GLOBULIN RATIO 1.2 (1.0-2.7); ALKALINE PHOSPHATASE 122 U/L (46-116); ANION GAP 13 mmol/L (5-15); ASPARTATE AMINO TRANSFERASE 29 U/L (15-37); BILIRUBIN,TOTAL 0.6 MG/DL (0.2-1.0); BLOOD UREA NITROGEN 8 mg/dL (7-18); CALCIUM 8.3 MG/DL (8.5-10.1); CARBON DIOXIDE 25 MMOL/L (21-32); CHLORIDE 99 MMOL/L (98-107); CREATININE 0.7 MG/DL (0.55-1.30); POTASSIUM 3.2 MMOL/L (3.5-5.1); SODIUM 137 MMOL/L (136-145)
[2019-04-05 08:00] VITALS: BP 159/86
--- NOTE | 2019-04-05 08:35 | General Progress Note ---
Assessment/Plan Problem List: (1) Pancreatitis ICD Codes: K85.90 - Acute pancreatitis without necrosis or infection, unspecified SNOMED: 52958410 (2) Chest pain ICD Codes: R07.9 - Chest pain, unspecified SNOMED: 13725039, 018403394, 446879306 Qualifiers: Qualified Codes: R07.9 - Chest pain, unspecified (3) Elevated transaminase level ICD Codes: R74.0 - Nonspecific elevation of levels of transaminase and lactic acid dehydrogenase [LDH] SNOMED: 537701008, 218321793 (4) PUD (peptic ulcer disease) ICD Codes: K27.9 - Peptic ulcer, site unspecified, unspecified as acute or chronic, without hemorrhage or perforation SNOMED: 16565223 (5) Cholelithiasis ICD Codes: K80.20 - Calculus of gallbladder without cholecystitis without obstruction SNOMED: 024396069 Qualifiers: Qualified Codes: K80.00 - Calculus of gallbladder with acute cholecystitis without obstruction Status: progressing Assessment/Plan: Status post laparoscopic cholecystectomy on follow-up surgical recommendations post operative ileus Diet per surgery Encourage ambulation and use of incentive spirometer PPI Pain management Zofran as needed Follow labs Subjective ROS Limited/Unobtainable: Yes Allergies: Coded Allergies: No Known Allergies (Unverified , 03/29/19) Subjective abd pain diarrhea Objective Last 24 Hour Vital Signs Date Time Temp Pulse Resp B/P (MAP) Pulse Ox O2 Delivery O2 Flow Rate FiO2 04/05/19 04:00 97.4 83 21 144/90 (108) 97 04/05/19 00:00 97.4 87 20 151/89 (109) 96 04/04/19 21:00 Room Air 04/04/19 21:00 Room Air 04/04/19 20:00 97.5 85 20 142/93 (109) 95 04/04/19 16:43 98.7 04/04/19 16:00 98.9 96 20 128/80 (96) 98 04/04/19 12:00 98.7 96 20 140/93 (109) 97 04/04/19 09:00 Room Air 04/04/19 08:59 99.2 Intake and Output 04/04/19 04/05/19 19:00 07:00 Intake Total 1492.5 ml Balance 1492.5 ml Intake Oral 600 ml IV Total 892.5 ml # Voids 6 3 # Bowel Movements 1 1 Laboratory Tests 04/05/19 05:29: White Blood Count 14.4H, Red Blood Count 3.81L, Hemoglobin 12.0L, Hematocrit 35.5L, Mean Corpuscular Volume 93, Mean Corpuscular Hemoglobin 31.5H, Mean Corpuscular Hemoglobin Concent 33.8, Red Cell Distribution Width 10.7L, Platelet Count 274, Mean Platelet Volume 6.0L, Neutrophils (%) (Auto) 80.4H, Lymphocytes (%) (Auto) 10.0L, Monocytes (%) (Auto) 7.9, Eosinophils (%) (Auto) 1.0, Basophils (%) (Auto) 0.6, Sodium Level 137, Potassium Level 3.2L, Chloride Level 99, Carbon Dioxide Level 25, Anion Gap 13, Blood Urea Nitrogen 8, Creatinine 0.7, Estimat Glomerular Filtration Rate > 60, Glucose Level 176H, Calcium Level 8.3L, Total Bilirubin 0.6, Aspartate Amino Transf (AST/SGOT) 29, Alanine Aminotransferase (ALT/SGPT) 113H, Alkaline Phosphatase 122H, Total Protein 6.1L, Albumin 3.3L, Globulin 2.8, Albumin/Globulin Ratio 1.2 Height (Feet): 5 Height (Inches): 8.00 Weight (Pounds): 160 General Appearance: alert EENT: normal ENT inspection Neck: supple Cardiovascular: normal rate Respiratory/Chest: decreased breath sounds Abdomen: soft, tender Extremities: non-tender Stanley Leahy MD Apr 05, 2019 08:35
[2019-04-05] MEDS: Pantoprazole Inj IVP SCH (09:34)
[2019-04-05] MEDS: Sucralfate 1gm tab ORAL SCH ×4 (09:34→21:22)
[2019-04-05] MEDS: Meloxicam 15 MG TAB ORAL SCH (09:34)
[2019-04-05] MEDS: Heparin 5000 units/ml inj SUBQ SCH ×2 (09:36→21:23)
--- NOTE | 2019-04-05 11:32 | General Progress Note ---
Assessment/Plan Status: progressing Assessment/Plan: S: My stomach hurts less O: significant improvement in pain in abdomen and tolerating po diet PHYSICAL EXAMINATION: HEAD AND NECK: Atraumatic and normocephalic. CHEST: Clear to auscultation. HEART: S1 and S2. Regular rate and rhythm. ABDOMEN: No Guarding, Sites of incisions on abdomen are noted and clean. Negative for tenderness. MUSCULOSKELETAL: No gross focal motor deficit. NEUROLOGY: Awake, alert, oriented x3. LABORATORY AND DIAGNOSTIC DATA: Labs dated April 03, 2019 reviewed Abdominal MRI and Echo, both, dated March reviewed. ASSESSMENT AND PLAN: 1. Acute cholecystitis. Post Operation 2. Acute biliary pancreatitis 2. Abnormal blood sugar. 3. Abnormal LFT. 4. GI and DVT prophylaxis. Plan: Post op D #5 Advanced diet notes from and GI Surgeon reviewed Slight interval increase in WBC will monitor, once Ok with ID , will DC with PO abx Subjective Allergies: Coded Allergies: No Known Allergies (Unverified , 03/29/19) Objective Last 24 Hour Vital Signs Date Time Temp Pulse Resp B/P (MAP) Pulse Ox O2 Delivery O2 Flow Rate FiO2 04/05/19 04:00 97.4 83 21 144/90 (108) 97 04/05/19 00:00 97.4 87 20 151/89 (109) 96 04/04/19 21:00 Room Air 04/04/19 21:00 Room Air 04/04/19 20:00 97.5 85 20 142/93 (109) 95 04/04/19 16:43 98.7 04/04/19 16:00 98.9 96 20 128/80 (96) 98 04/04/19 12:00 98.7 96 20 140/93 (109) 97 Intake and Output 04/04/19 04/05/19 19:00 07:00 Intake Total 1492.5 ml Balance 1492.5 ml Intake Oral 600 ml IV Total 892.5 ml # Voids 6 3 # Bowel Movements 1 1 Laboratory Tests 04/05/19 05:29: White Blood Count 14.4H, Red Blood Count 3.81L, Hemoglobin 12.0L, Hematocrit 35.5L, Mean Corpuscular Volume 93, Mean Corpuscular Hemoglobin 31.5H, Mean Corpuscular Hemoglobin Concent 33.8, Red Cell Distribution Width 10.7L, Platelet Count 274, Mean Platelet Volume 6.0L, Neutrophils (%) (Auto) 80.4H, Lymphocytes (%) (Auto) 10.0L, Monocytes (%) (Auto) 7.9, Eosinophils (%) (Auto) 1.0, Basophils (%) (Auto) 0.6, Sodium Level 137, Potassium Level 3.2L, Chloride Level 99, Carbon Dioxide Level 25, Anion Gap 13, Blood Urea Nitrogen 8, Creatinine 0.7, Estimat Glomerular Filtration Rate > 60, Glucose Level 176H, Calcium Level 8.3L, Total Bilirubin 0.6, Aspartate Amino Transf (AST/SGOT) 29, Alanine Aminotransferase (ALT/SGPT) 113H, Alkaline Phosphatase 122H, Total Protein 6.1L, Albumin 3.3L, Globulin 2.8, Albumin/Globulin Ratio 1.2 Height (Feet): 5 Height (Inches): 8.00 Weight (Pounds): 160 Johnson Duenas MD Apr 05, 2019 11:32
[2019-04-05 12:00] VITALS: BP 136/83
--- NOTE | 2019-04-05 13:30 | NUR ---
NURSE NOTES: Dr uDenas phoned earlier in shift , to be made aware of low potassium level. gave orders for potassium 40 meq . Pt gagging zofran given . Pt states the food is salty, inquired of can bring porridge. Pt laying down moaning provided with pain medication as well . IV antibiotics started call light is in reach, informed to call securities underwriter for bathroom needs
--- NOTE | 2019-04-05 15:02 | General Surgery Progress Note ---
General Surgery-Progress Note Subjective Symptoms: improved, BM Objective Last 24 Hour Vital Signs Date Time Temp Pulse Resp B/P (MAP) Pulse Ox O2 Delivery O2 Flow Rate FiO2 04/05/19 04:00 97.4 83 21 144/90 (108) 97 04/05/19 00:00 97.4 87 20 151/89 (109) 96 04/04/19 21:00 Room Air 04/04/19 21:00 Room Air 04/04/19 20:00 97.5 85 20 142/93 (109) 95 04/04/19 16:43 98.7 04/04/19 16:00 98.9 96 20 128/80 (96) 98 I&O Intake and Output 04/04/19 04/05/19 19:00 07:00 Intake Total 1492.5 ml Balance 1492.5 ml Intake Oral 600 ml IV Total 892.5 ml # Voids 6 3 # Bowel Movements 1 1 Wound: clean, intact Respiratory: clear Abdomen: soft, flat, non-tender, present bowel sounds Extremities: no tenderness Laboratory Tests Test 04/05/19 05:29 White Blood Count 14.4 K/UL (4.8-10.8) H Red Blood Count 3.81 M/UL (4.70-6.10) L Hemoglobin 12.0 G/DL (14.2-18.0) L Hematocrit 35.5 % (42.0-52.0) L Mean Corpuscular Volume 93 FL (80-99) Mean Corpuscular Hemoglobin 31.5 PG (27.0-31.0) H Mean Corpuscular Hemoglobin Concent 33.8 G/DL (32.0-36.0) Red Cell Distribution Width 10.7 % (11.6-14.8) L Platelet Count 274 K/UL (150-450) Mean Platelet Volume 6.0 FL (6.5-10.1) L Neutrophils (%) (Auto) 80.4 % (45.0-75.0) H Lymphocytes (%) (Auto) 10.0 % (20.0-45.0) L Monocytes (%) (Auto) 7.9 % (1.0-10.0) Eosinophils (%) (Auto) 1.0 % (0.0-3.0) Basophils (%) (Auto) 0.6 % (0.0-2.0) Sodium Level 137 MMOL/L (136-145) Potassium Level 3.2 MMOL/L (3.5-5.1) L Chloride Level 99 MMOL/L (98-107) Carbon Dioxide Level 25 MMOL/L (21-32) Anion Gap 13 mmol/L (5-15) Blood Urea Nitrogen 8 mg/dL (7-18) Creatinine 0.7 MG/DL (0.55-1.30) Estimat Glomerular Filtration Rate > 60 mL/min (>60) Glucose Level 176 MG/DL (74-106) H Calcium Level 8.3 MG/DL (8.5-10.1) L Total Bilirubin 0.6 MG/DL (0.2-1.0) Aspartate Amino Transf (AST/SGOT) 29 U/L (15-37) Alanine Aminotransferase (ALT/SGPT) 113 U/L (12-78) H Alkaline Phosphatase 122 U/L (46-116) H Total Protein 6.1 G/DL (6.4-8.2) L Albumin 3.3 G/DL (3.4-5.0) L Globulin 2.8 g/dL Albumin/Globulin Ratio 1.2 (1.0-2.7) Assessment Additional Comments S/P gallstone pancreatitis Plan Additional Comments ct scan Ofe Salomon MD Apr 05, 2019 15:02
[2019-04-05] MEDS ORDERED: Isovue-300 100ml vial INJ PRN (15:15)
[2019-04-05 16:00] VITALS: BP 122/82
--- NOTE | 2019-04-05 16:25 | NUR ---
CASE MANAGEMENT: REVIEW 04/05/2019 SI:ACUTE CHOLECYSTITIS. POD #4 Laparoscopic cholecystectomy. T 99 HR 93 RR 18 B/P 136/83 SATS 97% ON RA WBC 14.4 K 3.2 GLU 176 CA 8.3 ALT 113 ALP 122 IS:IVF @ 100 mL/HR ZOSYN IV Q8H MOBIC PO QD PROTONIX IV QD INSULIN ASPART SUBQ AC/HS CARAFATE PO QID MED/SURG STATUS PLAN OF CARE: CT ABD/PELVIS
--- NOTE | 2019-04-05 16:30 | NUR ---
INSURANCE CLINICALS AND REVIEWS FAXED TO NO AIR BREAKER OPERATOR ASSIGNED AT THIS TIME. PLEASE FAX THE REVIEW/CLINICAL P- [phone] F- [phone]...REVIEW/CLINICAL & [facility] T: [phone] x [phone] F: [phone]
[2019-04-05 20:00] VITALS: BP 131/80
--- NOTE | 2019-04-05 20:20 | NUR ---
HAND-OFF: Report given to .Lolis SU
--- NOTE | 2019-04-05 20:24 | NUR ---
NURSE NOTES: documentation done for pain medication , remained red redone , then the computer read unable to file done
--- NOTE | 2019-04-05 20:25 | NUR ---
NURSE NOTES: RECEIVED PT FROM GEORGES LAFLEUR. PT IS AWAKE,AAOX4, ON ROOM AIR, NO ACUTE DISTRESS NOTED. FAMILY MEMBER AT BEDSIDE. IV ON LEFT HAND 22G IS INTACT AND PATENT, RUNNING D5 1/2 NS 20KCL AT 100 ML/HR. BED IS LOCKED AT THE LOWEST POSITION, BED ALARMS ACTIVE, SIDE RAILS X2, AND CALL LIGHT IS WITHIN REACH. WILL CONTINUE TO MONITOR.
--- NOTE | 2019-04-05 21:18 | Infectious Diseases Prog Note ---
Assessment/Plan Problems: (1) Cholelithiasis Assessment & Plan: with cholecystitis and persistent pain with increasing wbc , continue zosyn treatment since spiked fever with possible phlegmonous pancreatitis as per D/W Dr Hurst , S/P cholecystectomy by surgery . agree on CT ABD TO RULE OUT NECROTIC PANCREATITIS (2) Elevated transaminase level Assessment & Plan: suspect due to the above , screening for hepatitis is negative , close monitor of liver function (3) Cholecystitis Assessment & Plan: with pain and elevated transaminase , S/P LAP LEONARD , continue antibiotics for now since febrile after surgical resection . surgery is following (4) Fever Assessment & Plan: suspect post OP , monitor clinically, continue zosyn Subjective Constitutional: Reports: no symptoms HEENT: Reports: no symptoms Respiratory: Reports: no symptoms Breasts: Reports: no symptoms Cardiovascular: Reports: no symptoms Gastrointestinal/Abdominal: Reports: constipation, bloating Genitourinary: Reports: no symptoms Neurologic: Reports: no symptoms Psychiatric: Reports: no symptoms Skin: Reports: no symptoms Endocrine: Reports: no symptoms Hematologic: Reports: no symptoms Musculoskeletal: Reports: no symptoms Allergies: Coded Allergies: No Known Allergies (Unverified , 03/29/19) Objective Vital Signs Last 24 Hour Vital Signs Date Time Temp Pulse Resp B/P (MAP) Pulse Ox O2 Delivery O2 Flow Rate FiO2 04/05/19 16:00 99.3 18 122/82 (95) 04/05/19 12:00 98.7 93 18 136/83 (100) 04/05/19 09:00 Room Air 04/05/19 08:00 99.4 92 159/86 (110) 04/05/19 04:00 97.4 83 21 144/90 (108) 97 04/05/19 00:00 97.4 87 20 151/89 (109) 96 Height (Feet): 5 Height (Inches): 8.00 Weight (Pounds): 160 General Appearance: WD/WN, no acute distress HEENT: normocephalic, atraumatic, anicteric, mucous membranes moist, PERRL Respiratory/Chest: chest wall non-tender, lungs clear, normal breath sounds, no respiratory distress, no accessory muscle use Cardiovascular: normal peripheral pulses, normal rate, regular rhythm, no gallop/murmur, no JVD Abdomen: no organomegaly, no mass, absent bowel sounds, distended, tender Genitourinary: normal external genitalia Extremities: no cyanosis, no clubbing Skin: no rash, no lesions, no ulcers Neurologic/Psychiatric: alert, oriented x 3, responsive Laboratory Tests Test 04/05/19 05:29 White Blood Count 14.4 K/UL (4.8-10.8) H Red Blood Count 3.81 M/UL (4.70-6.10) L Hemoglobin 12.0 G/DL (14.2-18.0) L Hematocrit 35.5 % (42.0-52.0) L Mean Corpuscular Volume 93 FL (80-99) Mean Corpuscular Hemoglobin 31.5 PG (27.0-31.0) H Mean Corpuscular Hemoglobin Concent 33.8 G/DL (32.0-36.0) Red Cell Distribution Width 10.7 % (11.6-14.8) L Platelet Count 274 K/UL (150-450) Mean Platelet Volume 6.0 FL (6.5-10.1) L Neutrophils (%) (Auto) 80.4 % (45.0-75.0) H Lymphocytes (%) (Auto) 10.0 % (20.0-45.0) L Monocytes (%) (Auto) 7.9 % (1.0-10.0) Eosinophils (%) (Auto) 1.0 % (0.0-3.0) Basophils (%) (Auto) 0.6 % (0.0-2.0) Sodium Level 137 MMOL/L (136-145) Potassium Level 3.2 MMOL/L (3.5-5.1) L Chloride Level 99 MMOL/L (98-107) Carbon Dioxide Level 25 MMOL/L (21-32) Anion Gap 13 mmol/L (5-15) Blood Urea Nitrogen 8 mg/dL (7-18) Creatinine 0.7 MG/DL (0.55-1.30) Estimat Glomerular Filtration Rate > 60 mL/min (>60) Glucose Level 176 MG/DL (74-106) H Calcium Level 8.3 MG/DL (8.5-10.1) L Total Bilirubin 0.6 MG/DL (0.2-1.0) Aspartate Amino Transf (AST/SGOT) 29 U/L (15-37) Alanine Aminotransferase (ALT/SGPT) 113 U/L (12-78) H Alkaline Phosphatase 122 U/L (46-116) H Total Protein 6.1 G/DL (6.4-8.2) L Albumin 3.3 G/DL (3.4-5.0) L Globulin 2.8 g/dL Albumin/Globulin Ratio 1.2 (1.0-2.7) Current Medications Medications (Trade) Dose Ordered Sig/Ben Route PRN Reason Start Time Stop Time Status Last Admin Dose Admin Acetaminophen (Tylenol) 650 mg Q4H PRN RECTAL FEVER 04/01/19 17:30 05/01/19 17:29 Barium Sulfate (Readi-Cat 2) 450 ml NOW PRN ORAL Radiology Procedure 04/05/19 15:15 04/07/19 15:02 Dextrose (Dextrose 50%) 25 ml Q30M PRN IV Hypoglycemia 03/30/19 13:30 04/29/19 13:29 Dextrose (Dextrose 50%) 50 ml Q30M PRN IV Hypoglycemia 03/30/19 13:30 04/29/19 13:29 Dextrose/ Electrolytes 1,000 ml @ 100 mls/hr Q10H IV 04/01/19 19:00 05/01/19 18:59 04/04/19 16:56 Heparin Sodium (Porcine) (Heparin 5000 units/ml) 5,000 units EVERY 12 HOURS SUBQ 03/30/19 09:00 04/29/19 08:59 04/05/19 09:36 Insulin Aspart (NovoLOG) BEFORE MEALS AND HS SUBQ 03/30/19 13:15 04/29/19 13:14 04/05/19 18:06 Iopamidol (Isovue-300 100ml) 100 ml NOW PRN INJ Radiology Procedure 04/05/19 15:15 04/07/19 23:59 Meloxicam (Mobic) 15 mg DAILY ORAL 03/30/19 09:00 04/29/19 08:59 04/05/19 09:34 Ondansetron HCl (Zofran) 4 mg Q6H PRN IVP Nausea & Vomiting 04/01/19 17:30 05/01/19 17:29 04/02/19 00:45 Pantoprazole (Protonix) 40 mg DAILY IVP 04/01/19 17:45 05/01/19 17:44 04/05/19 09:34 Piperacillin Sod/ Tazobactam Sod 3.375 gm/Sodium Chloride 110 ml @ 27.5 mls/hr EVERY 8 HOURS IVPB 04/03/19 22:00 04/08/19 21:59 04/05/19 13:16 Sucralfate (Carafate) 1 gm FOUR TIMES A DAY ORAL 03/30/19 13:00 04/29/19 12:59 04/05/19 18:03 Tramadol HCl (Ultram) 50 mg Q4H PRN ORAL For Pain 04/04/19 16:00 04/11/19 15:59 04/05/19 18:04 Mita Bloom M.D. Apr 05, 2019 21:18
[2019-04-06] VITALS: BP 131/83
[2019-04-06 04:00] VITALS: BP 132/85
[2019-04-06] MEDS: Piperacillin/Tazobactam 3.375 GM in NS 110 ML IVPB SCH ×2 (06:40→13:25)
[2019-04-06] MEDS: NovoLOG Insulin Flexpen SUBQ SCH ×3 (06:47→18:02)
[2019-04-06 06:48] LABS: BASOPHILS % (AUTO) 0.5 % (0.0-2.0); EOSINOPHILS % (AUTO) 1.5 % (0.0-3.0); HEMATOCRIT 33.8 % (42.0-52.0); HEMOGLOBIN 11.6 G/DL (14.2-18.0); LYMPHOCYTES % (AUTO) 11.5 % (20.0-45.0); MEAN CORPUSCULAR VOLUME 92 FL (80-99); MONOCYTES % (AUTO) 7.4 % (1.0-10.0); NEUTROPHILS % (AUTO) 79.1 % (45.0-75.0); PLATELET COUNT 343 K/UL (150-450); RED BLOOD COUNT 3.69 M/UL (4.70-6.10); RED CELL DISTRIBUTION WIDTH 10.8 % (11.6-14.8); WHITE BLOOD COUNT 15.4 K/UL (4.8-10.8)
[2019-04-06 07:09] LABS: ALANINE AMINOTRANSFERASE 79 U/L (12-78); ALBUMIN 2.8 G/DL (3.4-5.0); ALBUMIN/GLOBULIN RATIO 0.7 (1.0-2.7); ALKALINE PHOSPHATASE 110 U/L (46-116); AMYLASE 42 U/L (25-115); ANION GAP 9 mmol/L (5-15); ASPARTATE AMINO TRANSFERASE 15 U/L (15-37); BILIRUBIN,TOTAL 0.5 MG/DL (0.2-1.0); BLOOD UREA NITROGEN 5 mg/dL (7-18); CALCIUM 8.6 MG/DL (8.5-10.1); CARBON DIOXIDE 25 MMOL/L (21-32); CHLORIDE 102 MMOL/L (98-107); CREATININE 0.8 MG/DL (0.55-1.30); POTASSIUM 3.2 MMOL/L (3.5-5.1); SODIUM 136 MMOL/L (136-145)
--- NOTE | 2019-04-06 07:16 | NUR ---
HAND-OFF: Report given to GEORGES Nogueira.
--- NOTE | 2019-04-06 07:35 | NUR ---
NURSE NOTES: Pt walking around in room. States his pain is less today 2/10. Current paln of care will be followed
[2019-04-06 08:00] VITALS: BP 129/84
[2019-04-06] MEDS: D5 1/2NS w/KCl 20mEq 1,000 ML IV SCH ×2 (09:00→19:00)
[2019-04-06] MEDS: Sucralfate 1gm tab ORAL SCH ×3 (09:21→18:00)
[2019-04-06] MEDS: Pantoprazole Inj IVP SCH (09:21)
[2019-04-06] MEDS: Meloxicam 15 MG TAB ORAL SCH (09:21)
[2019-04-06] MEDS: Heparin 5000 units/ml inj SUBQ SCH (09:22)
--- NOTE | 2019-04-06 10:13 | General Progress Note ---
Assessment/Plan Status: progressing Assessment/Plan: S: My stomach is much better O: improvement in pain in abdomen PHYSICAL EXAMINATION: HEAD AND NECK: Atraumatic and normocephalic. CHEST: Clear to auscultation. HEART: S1 and S2. Regular rate and rhythm. ABDOMEN: No Guarding, Sites of incisions on abdomen are noted and clean. Negative for tenderness. MUSCULOSKELETAL: No gross focal motor deficit. NEUROLOGY: Awake, alert, oriented x3. LABORATORY AND DIAGNOSTIC DATA: Labs dated April 03, 2019 reviewed Abdominal MRI and Echo, both, dated March reviewed. ASSESSMENT AND PLAN: 1. Acute cholecystitis. Post Operation 2. Acute biliary pancreatitis 2. Abnormal blood sugar. 3. Abnormal LFT. 4. GI and DVT prophylaxis. Plan: Post op D #6 Advanced diet notes from and ID and Surgeon reviewed Interval increase in WBC with fever pending result of CT Subjective Allergies: Coded Allergies: No Known Allergies (Unverified , 03/29/19) Objective Last 24 Hour Vital Signs Date Time Temp Pulse Resp B/P (MAP) Pulse Ox O2 Delivery O2 Flow Rate FiO2 04/06/19 04:00 98.4 78 17 132/85 (101) 97 04/06/19 00:00 97.8 87 17 131/83 (99) 97 04/05/19 21:00 Room Air 04/05/19 20:00 98.5 83 17 131/80 (97) 96 04/05/19 16:00 99.3 18 122/82 (95) 04/05/19 12:00 98.7 93 18 136/83 (100) Intake and Output 04/05/19 04/06/19 18:59 06:59 Intake Total 510.0 ml 1010.0 ml Balance 510.0 ml 1010.0 ml Intake Oral 400 ml IV Total 110.0 ml 1010.0 ml # Voids 2 # Bowel Movements 2 Laboratory Tests 04/06/19 06:24: White Blood Count 15.4H, Red Blood Count 3.69L, Hemoglobin 11.6L, Hematocrit 33.8L, Mean Corpuscular Volume 92, Mean Corpuscular Hemoglobin 31.5H, Mean Corpuscular Hemoglobin Concent 34.4, Red Cell Distribution Width 10.8L, Platelet Count 343, Mean Platelet Volume 5.9L, Neutrophils (%) (Auto) 79.1H, Lymphocytes (%) (Auto) 11.5L, Monocytes (%) (Auto) 7.4, Eosinophils (%) (Auto) 1.5, Basophils (%) (Auto) 0.5, Sodium Level 136, Potassium Level 3.2L, Chloride Level 102, Carbon Dioxide Level 25, Anion Gap 9, Blood Urea Nitrogen 5L, Creatinine 0.8, Estimat Glomerular Filtration Rate > 60, Glucose Level 204H, Calcium Level 8.6, Total Bilirubin 0.5, Aspartate Amino Transf (AST/SGOT) 15, Alanine Aminotransferase (ALT/SGPT) 79H, Alkaline Phosphatase 110, Total Protein 6.7, Albumin 2.8L, Globulin 3.9, Albumin/Globulin Ratio 0.7L, Amylase Level 42, Lipase 353 Height (Feet): 5 Height (Inches): 8.00 Weight (Pounds): 160 Johnson Duenas MD Apr 06, 2019 10:13
--- NOTE | 2019-04-06 10:20 | Diagnostic Imaging Report ---
Indication: Abdominal pain Technique: Continuous helical transaxial imaging of the abdomen and pelvis was obtained from the lung bases to the pubic symphysis during intravenous contrast administration. Coronal 2-D reformats were also obtained. Study obtained in a Siemens sensation [address] Automatic Exposure Control was utilized. Total Dose length Product (DLP): 852.[address] Dose Index Volume (CTDIvol): 14.79 mGy Comparison: MRI abdomen 03/30/2019 Findings: Trace left pleural fluid and mild basilar atelectasis demonstrated. The liver is hypodense consistent with fatty infiltration there is a moderate degree of peripancreatic fluid and inflammation consistent with acute pancreatitis, which was suspected on the MRCP performed preoperatively. There is no biliary ductal dilatation identified. CBD is normal in caliber. Interval cholecystectomy noted. There is no evidence of bowel obstruction. Bowel gas pattern appears nonobstructive. There is no free fluid or evidence of abscess. Small amount of fluid and/or blood is noted in the gallbladder fossa certainly within the expected the limits of normal given the recent cholecystectomy. The adrenal glands, the spleen appear unremarkable. There are a few small hypodensities within the kidneys likely cystic though too small to characterize. There is a small right inguinal hernia containing fat. Bladder is unremarkable. IMPRESSION: Status post interval cholecystectomy. Small amount of fluid and/or blood in the gallbladder fossa noted, not unexpected given recent surgery. Correlate clinically and suggest follow-up as needed. Acute pancreatitis. No pseudocyst identified. Fatty liver Trace left pleural effusion Other incidental findings as above The CT scanner at [facility] is accredited by the [employer] and the scans are performed using dose optimization techniques as appropriate to a performed exam including Automatic Exposure control.
--- NOTE | 2019-04-06 10:43 | NUR ---
CHARGE NURSE NOTES: ct REport relayed to Dr gaytan-no order given.
--- NOTE | 2019-04-06 10:54 | GI Progress Note ---
Assessment/Plan Problems: (1) Cholelithiasis ICD Codes: K80.20 - Calculus of gallbladder without cholecystitis without obstruction SNOMED: 479412549 Qualifiers: Qualified Codes: K80.00 - Calculus of gallbladder with acute cholecystitis without obstruction (2) Elevated transaminase level ICD Codes: R74.0 - Nonspecific elevation of levels of transaminase and lactic acid dehydrogenase [LDH] SNOMED: 600096493, 709113442 (3) Pancreatitis ICD Codes: K85.90 - Acute pancreatitis without necrosis or infection, unspecified SNOMED: 73490254 (4) Cholecystitis ICD Codes: K81.9 - Cholecystitis, unspecified SNOMED: 73897771 (5) Postoperative ileus ICD Codes: K91.89 - Other postprocedural complications and disorders of digestive system; K56.7 - Ileus, unspecified SNOMED: 623881046 Status: stable Status Narrative Discussed with Dr. Leahy Assessment/Plan Status post laparoscopic cholecystectomy on follow-up surgical recommendations Abdominal MRI negative, hold ERCP plans post operative ileus, resolved Diet per surgery Encourage ambulation and use of incentive spirometer PPI Pain management Zofran as needed Follow labs The patient was seen and examined at bedside and all new and available data was reviewed in the patients chart. I agree with the above findings, impression and plan. (Patient seen earlier today. Signature stamp does not reflect patient encounter time.). - Stanley Leahy MD Subjective Subjective abdominal pain improved Abdominal bloating and distention improved Patient able to pass gas Objective Last 24 Hour Vital Signs Date Time Temp Pulse Resp B/P (MAP) Pulse Ox O2 Delivery O2 Flow Rate FiO2 04/06/19 04:00 98.4 78 17 132/85 (101) 97 04/06/19 00:00 97.8 87 17 131/83 (99) 97 04/05/19 21:00 Room Air 04/05/19 20:00 98.5 83 17 131/80 (97) 96 04/05/19 16:00 99.3 18 122/82 (95) 04/05/19 12:00 98.7 93 18 136/83 (100) Intake and Output 04/05/19 04/06/19 19:00 07:00 Intake Total 510.0 ml 1010.0 ml Balance 510.0 ml 1010.0 ml Intake Oral 400 ml IV Total 110.0 ml 1010.0 ml # Voids 2 # Bowel Movements 2 Laboratory Tests Test 04/06/19 06:24 White Blood Count 15.4 K/UL (4.8-10.8) H Red Blood Count 3.69 M/UL (4.70-6.10) L Hemoglobin 11.6 G/DL (14.2-18.0) L Hematocrit 33.8 % (42.0-52.0) L Mean Corpuscular Volume 92 FL (80-99) Mean Corpuscular Hemoglobin 31.5 PG (27.0-31.0) H Mean Corpuscular Hemoglobin Concent 34.4 G/DL (32.0-36.0) Red Cell Distribution Width 10.8 % (11.6-14.8) L Platelet Count 343 K/UL (150-450) Mean Platelet Volume 5.9 FL (6.5-10.1) L Neutrophils (%) (Auto) 79.1 % (45.0-75.0) H Lymphocytes (%) (Auto) 11.5 % (20.0-45.0) L Monocytes (%) (Auto) 7.4 % (1.0-10.0) Eosinophils (%) (Auto) 1.5 % (0.0-3.0) Basophils (%) (Auto) 0.5 % (0.0-2.0) Sodium Level 136 MMOL/L (136-145) Potassium Level 3.2 MMOL/L (3.5-5.1) L Chloride Level 102 MMOL/L (98-107) Carbon Dioxide Level 25 MMOL/L (21-32) Anion Gap 9 mmol/L (5-15) Blood Urea Nitrogen 5 mg/dL (7-18) L Creatinine 0.8 MG/DL (0.55-1.30) Estimat Glomerular Filtration Rate > 60 mL/min (>60) Glucose Level 204 MG/DL (74-106) H Calcium Level 8.6 MG/DL (8.5-10.1) Total Bilirubin 0.5 MG/DL (0.2-1.0) Aspartate Amino Transf (AST/SGOT) 15 U/L (15-37) Alanine Aminotransferase (ALT/SGPT) 79 U/L (12-78) H Alkaline Phosphatase 110 U/L (46-116) Total Protein 6.7 G/DL (6.4-8.2) Albumin 2.8 G/DL (3.4-5.0) L Globulin 3.9 g/dL Albumin/Globulin Ratio 0.7 (1.0-2.7) L Amylase Level 42 U/L (25-115) Lipase 353 U/L (73-393) Height (Feet): 5 Height (Inches): 8.00 Weight (Pounds): 160 General Appearance: WD/WN, no apparent distress, alert Cardiovascular: normal rate Respiratory/Chest: normal breath sounds, no respiratory distress Abdominal Exam: normal bowel sounds, non tender, soft Extremities: normal range of motion, non-tender Mushtaq Lynne NP Apr 06, 2019 10:54
--- NOTE | 2019-04-06 11:49 | NUR ---
CASE MANAGEMENT: REVIEW 04/06/2019 SI:ACUTE CHOLECYSTITIS. POD #5 Laparoscopic cholecystectomy. T 98.3 HR 78 RR 17 B/P 132/85 SATS 97% ON RA WBC 15.4 K 3.2 BUN 5 GLU 204 ALT 79 IS:IVF @ 100 mL/HR ZOSYN IV Q8H MOBIC PO QD PROTONIX IV QD INSULIN ASPART SUBQ AC/HS CARAFATE PO QID MED/SURG STATUS PLAN OF CARE: CT ABD/PELVIS IMPRESSION: Status post interval cholecystectomy. Small amount of fluid and/or blood in the gallbladder fossa noted, not unexpected given recent surgery. Correlate clinically and suggest follow-up as needed. Acute pancreatitis. No pseudocyst identified. Fatty liver Trace left pleural effusion
--- NOTE | 2019-04-06 11:53 | NUR ---
INSURANCE CLINICALS AND REVIEWS FAXED TO NO [employer] ASSIGNED AT THIS TIME. PLEASE FAX THE REVIEW/CLINICAL P- [phone] F- [phone]...REVIEW/CLINICAL
[2019-04-06 12:00] VITALS: BP 129/84
[2019-04-06] MEDS: traMADol 50mg tab ORAL PRN (13:25)
--- NOTE | 2019-04-06 14:00 | Infectious Diseases Prog Note ---
Assessment/Plan Problems: (1) Cholelithiasis Assessment & Plan: with cholecystitis and persistent pain with increasing wbc , continue zosyn treatment since spiked fever with possible phlegmonous pancreatitis as per D/W Dr Hurst , S/P cholecystectomy by surgery . agree on CT ABD TO RULE OUT NECROTIC PANCREATITIS (2) Elevated transaminase level Assessment & Plan: suspect due to the above , screening for hepatitis is negative , close monitor of liver function (3) Cholecystitis Assessment & Plan: with pain and elevated transaminase , S/P LAP LEONARD , continue antibiotics for now since febrile after surgical resection . surgery is following (4) Fever Assessment & Plan: suspect post OP , monitor clinically, continue zosyn for now , CT abdomen no abscess or phlegmon Subjective Constitutional: Reports: no symptoms HEENT: Reports: no symptoms Respiratory: Reports: no symptoms Breasts: Reports: no symptoms Cardiovascular: Reports: no symptoms Gastrointestinal/Abdominal: Reports: constipation, bloating, other - pain Genitourinary: Reports: no symptoms Neurologic: Reports: no symptoms Psychiatric: Reports: no symptoms Skin: Reports: no symptoms Endocrine: Reports: no symptoms Hematologic: Reports: no symptoms Musculoskeletal: Reports: no symptoms Allergies: Coded Allergies: No Known Allergies (Unverified , 03/29/19) Objective Vital Signs Last 24 Hour Vital Signs Date Time Temp Pulse Resp B/P (MAP) Pulse Ox O2 Delivery O2 Flow Rate FiO2 04/06/19 09:00 Room Air 04/06/19 08:00 98.3 18 129/84 (99) 97 04/06/19 04:00 98.4 78 17 132/85 (101) 97 04/06/19 00:00 97.8 87 17 131/83 (99) 97 04/05/19 21:00 Room Air 04/05/19 20:00 98.5 83 17 131/80 (97) 96 04/05/19 16:00 99.3 18 122/82 (95) Height (Feet): 5 Height (Inches): 8.00 Weight (Pounds): 160 General Appearance: WD/WN, no acute distress HEENT: normocephalic, atraumatic, anicteric, mucous membranes moist, PERRL Respiratory/Chest: chest wall non-tender, lungs clear, normal breath sounds, no respiratory distress, no accessory muscle use Cardiovascular: normal peripheral pulses, normal rate, regular rhythm, no gallop/murmur, no JVD Abdomen: no organomegaly, no mass, no scars, hypoactive bowel sounds, distended , tender Extremities: no cyanosis, no clubbing Skin: no rash, no lesions, no ulcers 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, no motor/sensory deficits, alert, oriented x 3, responsive Lymphatic: no neck adenopathy, no groin adenopathy Musculoskeletal: normal muscle bulk, no effusion Laboratory Tests Test 04/06/19 06:24 White Blood Count 15.4 K/UL (4.8-10.8) H Red Blood Count 3.69 M/UL (4.70-6.10) L Hemoglobin 11.6 G/DL (14.2-18.0) L Hematocrit 33.8 % (42.0-52.0) L Mean Corpuscular Volume 92 FL (80-99) Mean Corpuscular Hemoglobin 31.5 PG (27.0-31.0) H Mean Corpuscular Hemoglobin Concent 34.4 G/DL (32.0-36.0) Red Cell Distribution Width 10.8 % (11.6-14.8) L Platelet Count 343 K/UL (150-450) Mean Platelet Volume 5.9 FL (6.5-10.1) L Neutrophils (%) (Auto) 79.1 % (45.0-75.0) H Lymphocytes (%) (Auto) 11.5 % (20.0-45.0) L Monocytes (%) (Auto) 7.4 % (1.0-10.0) Eosinophils (%) (Auto) 1.5 % (0.0-3.0) Basophils (%) (Auto) 0.5 % (0.0-2.0) Sodium Level 136 MMOL/L (136-145) Potassium Level 3.2 MMOL/L (3.5-5.1) L Chloride Level 102 MMOL/L (98-107) Carbon Dioxide Level 25 MMOL/L (21-32) Anion Gap 9 mmol/L (5-15) Blood Urea Nitrogen 5 mg/dL (7-18) L Creatinine 0.8 MG/DL (0.55-1.30) Estimat Glomerular Filtration Rate > 60 mL/min (>60) Glucose Level 204 MG/DL (74-106) H Calcium Level 8.6 MG/DL (8.5-10.1) Total Bilirubin 0.5 MG/DL (0.2-1.0) Aspartate Amino Transf (AST/SGOT) 15 U/L (15-37) Alanine Aminotransferase (ALT/SGPT) 79 U/L (12-78) H Alkaline Phosphatase 110 U/L (46-116) Total Protein 6.7 G/DL (6.4-8.2) Albumin 2.8 G/DL (3.4-5.0) L Globulin 3.9 g/dL Albumin/Globulin Ratio 0.7 (1.0-2.7) L Amylase Level 42 U/L (25-115) Lipase 353 U/L (73-393) Current Medications Medications (Trade) Dose Ordered Sig/Ben Route PRN Reason Start Time Stop Time Status Last Admin Dose Admin Acetaminophen (Tylenol) 650 mg Q4H PRN RECTAL FEVER 04/01/19 17:30 05/01/19 17:29 Barium Sulfate (Readi-Cat 2) 450 ml NOW PRN ORAL Radiology Procedure 04/05/19 15:15 04/07/19 15:02 Dextrose (Dextrose 50%) 25 ml Q30M PRN IV Hypoglycemia 03/30/19 13:30 04/29/19 13:29 Dextrose (Dextrose 50%) 50 ml Q30M PRN IV Hypoglycemia 03/30/19 13:30 04/29/19 13:29 Dextrose/ Electrolytes 1,000 ml @ 100 mls/hr Q10H IV 04/01/19 19:00 05/01/19 18:59 04/05/19 21:22 Heparin Sodium (Porcine) (Heparin 5000 units/ml) 5,000 units EVERY 12 HOURS SUBQ 03/30/19 09:00 04/29/19 08:59 04/06/19 09:22 Insulin Aspart (NovoLOG) BEFORE MEALS AND HS SUBQ 03/30/19 13:15 04/29/19 13:14 04/06/19 13:37 Iopamidol (Isovue-300 100ml) 100 ml NOW PRN INJ Radiology Procedure 04/05/19 15:15 04/07/19 23:59 Meloxicam (Mobic) 15 mg DAILY ORAL 03/30/19 09:00 04/29/19 08:59 04/06/19 09:21 Ondansetron HCl (Zofran) 4 mg Q6H PRN IVP Nausea & Vomiting 04/01/19 17:30 05/01/19 17:29 04/02/19 00:45 Pantoprazole (Protonix) 40 mg DAILY IVP 04/01/19 17:45 05/01/19 17:44 04/06/19 09:21 Piperacillin Sod/ Tazobactam Sod 3.375 gm/Sodium Chloride 110 ml @ 27.5 mls/hr EVERY 8 HOURS IVPB 04/03/19 22:00 04/08/19 21:59 04/06/19 13:25 Sucralfate (Carafate) 1 gm FOUR TIMES A DAY ORAL 03/30/19 13:00 04/29/19 12:59 04/06/19 13:24 Tramadol HCl (Ultram) 50 mg Q4H PRN ORAL For Pain 04/04/19 16:00 04/11/19 15:59 04/06/19 13:25 Mita Bloom M.D. Apr 06, 2019 14:00
--- NOTE | 2019-04-06 14:21 | NUR ---
RD ASSESSMENT & RECOMMENDATIONS SEE CARE ACTIVITY FOR COMPLETE ASSESSMENT DAILY ESTIMATED NEEDS: Needs based on Pancreatitis, DM/ 72.5kg 25-30 kcals/kg 3826-1880 total kcals 1-1.5 g protein/kg 73-109 g total protein 25-30 mL/kg 5101-8435 total fluid mLs NUTRITION DIAGNOSIS: Altered nutrition related lab values R/T DM and gallstone pancreatitis as evidenced by elev BG and POC glu (191 176 198 228 179), elev Lipase of >2000 -> now wnl. CURRENT DIET:CARDIAC PO DIET RECOMMENDATIONS: CCHO MED, LOW FAT ADDITIONAL RECOMMENDATIONS: * Standing wt as able for accurate CBW * Rec to DC D5 IVF for improved BG control -> pt now on advanced diet * Monitor lytes, replete as needed * Monitor PO tolerance and acceptance
--- NOTE | 2019-04-06 15:14 | NUR ---
NURSE NOTES: New line placed pt going to restroom pushing iv pole. IV note bent upwards. Catheter tip intact upon removal, Call light is in reach
--- NOTE | 2019-04-06 15:22 | Cardiology Report ---
APPROVED REPORT EXAM: Two-dimensional and M-mode echocardiogram with Doppler and color Doppler. INDICATION Chest Pain M-Mode DIMENSIONS IVSd0.9 (0.7-1.1cm)Left Atrium (MM)4.1 (1.6-4.0cm) LVDd5.1 (3.5-5.6cm)Aortic Root3.0 (2.0-3.7cm) PWd0.8 (0.7-1.1cm)Aortic Cusp Exc.1.7 (1.5-2.0cm) IVSs1.6 cm LVDs3.5 (2.5-4.0cm) PWs1.3 cm Normal left ventricular chamber size, systolic function and wall motion .. Left ventricular ejection fraction estimated to be 55-60%. No evidence of left ventricular hypertrophy . No evidence of pericardial fat or effusion. All other cardiac chamber sizes are within normal limits. Aortic valve calcification with normal cusp excursion . Mildly thickened mitral valve leaflets with normal excursion. Mild mitral annulus and aortic root calcification. Pulmonic valve not well visualized. IVC at normal size with physiologic collapse . A color flow and spectral Doppler study was performed and revealed: Mild aortic insufficiency . Mitral diastolic velocities suggest reduced left ventricular relaxation c/w mild LV diastolic dysfunction (Grade I ) Trace mitral regurgitation. Mild tricuspid regurgitation. Tricuspid systolic velocities suggests peak right ventricular systolic pressure of 28mmHg.
[2019-04-06 16:00] VITALS: BP 116/78
--- NOTE | 2019-04-06 16:12 | Cardiology Report ---
APPROVED REPORT EKG Measurement Heart [id number] [place] [id number] Sinus tachycardia Possible Left atrial enlargement Nonspecific T wave abnormality Abnormal ECG
--- NOTE | 2019-04-06 16:23 | Cardiology Report ---
APPROVED REPORT EKG Measurement Heart [id number] [place] 160P43 [id number] Normal sinus rhythm Normal ECG
--- NOTE | 2019-04-06 16:24 | Cardiology Report ---
APPROVED REPORT EKG Measurement Heart [id number] [place] 168P82 [id number] Normal sinus rhythm Normal ECG
--- NOTE | 2019-04-06 18:05 | General Surgery Progress Note ---
General Surgery-Progress Note Subjective Symptoms: improved, BM Objective Last 24 Hour Vital Signs Date Time Temp Pulse Resp B/P (MAP) Pulse Ox O2 Delivery O2 Flow Rate FiO2 04/06/19 12:00 98.3 85 18 129/84 (99) 04/06/19 09:00 Room Air 04/06/19 08:00 98.3 18 129/84 (99) 97 04/06/19 04:00 98.4 78 17 132/85 (101) 97 04/06/19 00:00 97.8 87 17 131/83 (99) 97 04/05/19 21:00 Room Air 04/05/19 20:00 98.5 83 17 131/80 (97) 96 I&O Intake and Output 04/05/19 04/06/19 19:00 07:00 Intake Total 510.0 ml 1010.0 ml Balance 510.0 ml 1010.0 ml Intake Oral 400 ml IV Total 110.0 ml 1010.0 ml # Voids 2 # Bowel Movements 2 Wound: clean, intact Respiratory: clear Abdomen: soft, flat, non-tender, present bowel sounds Extremities: no tenderness Laboratory Tests Test 04/06/19 06:24 White Blood Count 15.4 K/UL (4.8-10.8) H Red Blood Count 3.69 M/UL (4.70-6.10) L Hemoglobin 11.6 G/DL (14.2-18.0) L Hematocrit 33.8 % (42.0-52.0) L Mean Corpuscular Volume 92 FL (80-99) Mean Corpuscular Hemoglobin 31.5 PG (27.0-31.0) H Mean Corpuscular Hemoglobin Concent 34.4 G/DL (32.0-36.0) Red Cell Distribution Width 10.8 % (11.6-14.8) L Platelet Count 343 K/UL (150-450) Mean Platelet Volume 5.9 FL (6.5-10.1) L Neutrophils (%) (Auto) 79.1 % (45.0-75.0) H Lymphocytes (%) (Auto) 11.5 % (20.0-45.0) L Monocytes (%) (Auto) 7.4 % (1.0-10.0) Eosinophils (%) (Auto) 1.5 % (0.0-3.0) Basophils (%) (Auto) 0.5 % (0.0-2.0) Sodium Level 136 MMOL/L (136-145) Potassium Level 3.2 MMOL/L (3.5-5.1) L Chloride Level 102 MMOL/L (98-107) Carbon Dioxide Level 25 MMOL/L (21-32) Anion Gap 9 mmol/L (5-15) Blood Urea Nitrogen 5 mg/dL (7-18) L Creatinine 0.8 MG/DL (0.55-1.30) Estimat Glomerular Filtration Rate > 60 mL/min (>60) Glucose Level 204 MG/DL (74-106) H Calcium Level 8.6 MG/DL (8.5-10.1) Total Bilirubin 0.5 MG/DL (0.2-1.0) Aspartate Amino Transf (AST/SGOT) 15 U/L (15-37) Alanine Aminotransferase (ALT/SGPT) 79 U/L (12-78) H Alkaline Phosphatase 110 U/L (46-116) Total Protein 6.7 G/DL (6.4-8.2) Albumin 2.8 G/DL (3.4-5.0) L Globulin 3.9 g/dL Albumin/Globulin Ratio 0.7 (1.0-2.7) L Amylase Level 42 U/L (25-115) Lipase 353 U/L (73-393) Assessment Additional Comments S/P gallstone pancreatitis Plan Additional Comments discharge home Ofe Salomon MD Apr 06, 2019 18:05
--- NOTE | 2019-04-06 18:09 | Discharge Instructions ---
Discharge Instructions Discharge Instructions Follow up with: G-I specialist Diet: low fat Resume Normal Activity?: Yes Activity: as tolerated For Surgical Patients May shower: Yes For Congestive Heart Failure Reminder Report to your physician any weight gain of 5 pounds or more in one week. Ofe Salomon MD Apr 06, 2019 18:09
--- NOTE | 2019-04-06 18:51 | NUR ---
NURSE NOTES: Dr Duenas called earlier in shift made aware of pt desire to go home stated he felt better. Dr Duenas stated he would be in this evening to see pt. Pt made aware.
--- NOTE | 2019-04-06 19:30 | NUR ---
NURSE NOTES:RECEIVED PATIENT LYING IN BED, AWAKE, ALERT/ORIENTED X4, IV SITE INTACT TO LEFT WRIST/GAUGE 22, NO REDNESS/SWELLING NOTED, TOLERATING IV FLUIDS. S/P LAPAROSCOPIC CHOLECYSTECTOMY, STERI STRIPS DRY AND INTACT, NO REDNESS NOTED TO SITE, NO REPORT OF GI DISCOMFORT, NO NAUSEA/VOMITING, CONTINENT OF B/B, BATHROOM PRIVILEGES. SIDE RAILS UP X2 FOR MOBILITY, BED IN LOWEST POSITION FOR SAFETY, ENCOURAGED PATIENT TO UTILIZE CALL LIGHT FOR ASSISTANCE. DENIES PAIN. NAD.
--- NOTE | 2019-04-06 19:30 | NUR ---
HAND-OFF: Report given to Krissy CLANCY made aware of possible discharge this evening.Awaiting Dr Duenas arrival
--- NOTE | 2019-04-06 21:00 | NUR ---
NURSE NOTES: PATIENT DISCHARGED HOME IN STABLE CONDITION VIA FAMILY VEHICLE, ACCOMPANIED BY AND DAUGHTER; DISCHARGE PACKAGE PREPARED AND EXPLAINED TO PATIENT, VERBALIZE UNDERSTANDING. VSS. SHETTY.
--- NOTE | 2019-04-08 10:04 | Discharge Summary ---
Discharge Summary Discharge Summary _ DATE OF ADMISSION: 03/30/2019 DATE OF DISCHARGE: 04/06/2019 DISCHARGED BY: Dr. Duenas REASON FOR ADMISSION: 49 years old male with past medical history of diabetes mellitus and hypercholesterolemia, presented with acute onset of abdominal pain. Pain was located in the upper abdomen , associated with nausea, vomiting and diarrhea. Pain described as 10 out of 10 on a scale 1-10, burning, pressure-like , in epigastric area radiating to his chest. Pain started after he ate spicy [place] soup. Patient denied blood in emesis or stool. Patient denied fever and chills. No dysuria. Upon evaluation laboratory work-up revealed mild leukocytosis with WBC 12.7, stable hemoglobin and hematocrit. Stable electrolytes and renal parameters. Glucose 213. AST 918, ALT 935. Lipase more than 2000. Troponin -0.138. pro BNP 16. Laboratory later corrected the first troponin as negative. Urinalysis revealed no evidence of urinary tract infarct infection, +2 glucose. EKG revealed sinus rhythm, no acute ischemic changes. Chest x-ray revealed no acute cardiopulmonary pathology. Abdominal ultrasound demonstrated fatty liver. Cholelithiasis. Probable nonobstructive stone left kidneys. No hydronephrosis. No biliary ductal dilatation. In the emergency department patient received aspirin due to positive troponin . repeat EKG still showed sinus rhythm , no acute ischemic changes. Patient received analgesia . Repeated two other troponin were negative. Patient started on broad-spectrum antibiotics. Surgeon consulted , and patient was transferred to medical surgical floor for further management. CONSULTANTS: ID specialist Dr. Bloom GI specialist Dr. Leahy surgery [facility] COURSE: Patient admitted to medical surgical floor. Patient was continued on IV hydration and was kept n.p.o. Pain management was addressed. Patient was continued on broad-spectrum antibiotics. Surgeon closely followed. Echocardiogram revealed preserved ejection fraction 55 to 60% with no evidence of left ventricular hypertrophy. No evidence of wall motion abnormality. Grade 1 diastolic dysfunction. Right ventricular systolic pressure 28. Fourth troponin was negative as well. Abdominal MRI revealed suspicion of acute pancreatitis. No evidence of biliary ductal dilatation or choledocholithiasis. Cholelithiasis noted. Patient subsequently undergone laparoscopic cholecystectomy due to acute gallstone pancreatitis. Pain management was addressed. Patient was continued on empiric antibiotic as per ID specialist recommendations. Patient developed postoperative heels. GI specialist followed. Bowel regimen instituted. Ambulation was encouraged. Incentive spirometer provided while patient was in the bed. Supportive care provided. DVT and GI prophylaxis provided. Antiemetic provided as needed. Patient slowly started on diet and was advanced as tolerated. Patient was able to tolerate diet. Renal parameters and electrolytes were closely monitored. Electrolytes/potassium replaced. LFT were trending down. Hepatitis panel was negative. Prior to discharge AST from 918 down to 15 and ALT from 935 down to 79. Lipase down to normal. Patient continued to have leukocytosis. Subsequently patient undergone CT of the abdomen and pelvis, which revealed status post cholecystectomy. Small amount of fluid in the gallbladder fossa not unexpected, given recent surgery. Acute pancreatitis. No pseudocyst. Fatty liver. Trace left pleural effusion. Residual leukocytosis was likely due to acute pancreatitis. No fevers. Blood sugar was closely monitored. Patient clinically stabilized and was ready for discharge home. Outpatient follow-up with a surgeon as advised by surgeon FINAL DIAGNOSES: Acute cholecystitis Acute gallstone pancreatitis Status post laparoscopic cholecystectomy Postoperative ileus Cholelithiasis Elevated LFT- resolved DISCHARGE MEDICATIONS: See Medication Reconciliation list. DISCHARGE INSTRUCTIONS: Patient was discharged home. Follow up with a primary care provider in 1 week. Follow-up with surgeon as outpatient as advised by surgeon. I have been assigned to dictate discharge summary for this account. I was not involved in the patient's management. I have been assigned to dictate discharge summary for this account. I was not involved in the patient's management. Alejandra Montejo NP Apr 08, 2019 10:04
--- NOTE | 2019-04-09 13:48 | NUR ---
INSURANCE all CLINICALS AND REVIEWS FAXED TO NO [employer]PER[employer]OR ASSIGNED AT THIS TIME. PLEASE FAX THE REVIEW/CLINICAL P- [phone] F- [phone]...REVIEW/CLINICAL
== END 2019-04-06 21:10 | disposition home or self-care (01) | DRG 263 ==
LOC: EMR 23:49 → 2W 03-30 01:00 → EDBEDREQ 03-30 04:48 → 3E 03-30 05:59
PROC: 0FT44ZZ Resection of Gallbladder, Percutaneous Endoscopic Approach (ICD-10-PCS; principal; 2019-04-01 16:00)
DX: K85.10 Biliary acute pancreatitis without necrosis or infection (principal); K80.00 Calculus of gallbladder with acute cholecystitis without obstruction; K27.9 Peptic ulcer, site unspecified, unspecified as acute or chronic, without hemorrhage or perforation; E11.9 Type 2 diabetes mellitus without complications; R21 Rash and other nonspecific skin eruption; K56.7 Ileus, unspecified
CPT/HCPCS: 36415; 71045; 74018; 74177; 74181; 76700; 80048; 80053; 80307; 81003; 82150; 82248; 82550; 82962; 83690; 83880; 84484; 85025; 85610; 85730; 86705; 86709; 86803; 87340; 93005; 93306; 94003; 94150; 96361; 96365; 96368; 96375; 96376; 99285; J1815; J2405; J2710; J8499

== ENCOUNTER 2019-05-01 10:24 | Outpatient (CLI) | payer MEDICAID ==
[~2019-05-01 10:24] MED LIST: ATORVASTATIN CA40 MG ORAL; METFORMIN HCL1000 M1 ORAL; OMEPRAZOLE40 M1 ORAL
--- NOTE | 2019-05-01 10:56 | General Progress Note ---
Assessment/Plan Problem List: (1) S/P cholecystectomy ICD Codes: Z90.49 - Acquired absence of other specified parts of digestive tract SNOMED: 38741277, 94403679, [id number] (2) Pancreatitis ICD Codes: K85.90 - Acute pancreatitis without necrosis or infection, unspecified SNOMED: 31614147 Assessment/Plan: ppi daily RTC if no improvement plan EGD if needed Subjective ROS Limited/Unobtainable: Yes Allergies: Coded Allergies: No Known Allergies (Unverified , 03/29/19) Objective General Appearance: alert EENT: normal ENT inspection Neck: supple Cardiovascular: normal rate Respiratory/Chest: lungs clear Abdomen: normal bowel sounds, non tender, soft Extremities: non-tender Stanley Leahy MD May 01, 2019 10:56
== END 2019-05-01 12:24 | disposition home or self-care (01) ==
LOC: PAN 10:24
DX: K85.90 Acute pancreatitis without necrosis or infection, unspecified (principal); Z90.49 Acquired absence of other specified parts of digestive tract